=== PATIENT | female | born 1940 | race Caucasian/White ===

== ENCOUNTER 2017-06-07 12:00 | Emergency (ER) | payer MEDICARE, MEDICAID ==
[2017-06-07] MEDS ORDERED: IPRATROPIUM/ALBUTEROL 0.5-2.5 MG/3 ML AMPUL NEB ONE (12:11)
--- NOTE | 2017-06-07 12:14 | ER Document Report ---
ED Medical Screen (RME) - General Chief Complaint: COPD Exacerbation Stated Complaint: COUGH,SHORTNESS OF BREATH Time Seen by Provider: 06/07/17 12:11 Notes: RME DISCLOSURE I have seen this patient as part of a Rapid Medical Evaluation and, if applicable, placed any initially appropriate orders. The patient will be seen and fully evaluated, including a full history and physical exam, by a provider ( in Main ED or Fast Track) when a room becomes available. 77-year-old female here with complaints of shortness of breath dry cough wheezing chest tightness ongoing for the past few days. She just arrived here from [place] and when the symptoms started, she started taking 40 mg daily prednisone and is currently on day 3 of 10. She tried a neb treatment this morning with not much relief. She has been using her "trilogy" inhaler. TRAVEL OUTSIDE OF THE [place] IN LAST 30 DAYS: No
[2017-06-07] MEDS ORDERED: METHYLPREDNISOLONE INJ 125 MG/2 ML SDV IV ONE (12:43)
[2017-06-07] MEDS ORDERED: LORAZEPAM INJ 2 MG/1 ML VIAL IV ONE (12:44)
--- NOTE | 2017-06-07 12:47 | ER Document Report ---
ED Respiratory Problem - General Chief Complaint: COPD Exacerbation Stated Complaint: COUGH,SHORTNESS OF BREATH Time Seen by Provider: 06/07/17 12:11 Mode of Arrival: Ambulatory Information source: Patient Notes: HPI-77 years old female with a history of COPD, anxiety bipolar disorder presents today with difficulty in breathing and wheezing. [place], on [place] here started having these symptoms. She is on 40 mg of prednisolone. For the last 10 days. Denies any fever chills productive cough. Denies any chest pain. Denies any other constitutional symptoms. REVIEW OF SYSTEMS: CONSTITUTIONAL : Denies fever, chills, or sweats. Denies recent illness. EENT: Denies eye, ear, throat, or mouth pain or symptoms. Denies nasal or sinus congestion or discharge. Denies throat, tongue, or mouth swelling or difficulty swallowing. CARDIOVASCULAR: Denies chest pain. Denies palpitations or racing or irregular heart beat. Denies ankle edema. RESPIRATORY: As per history of complain GASTROINTESTINAL: Denies abdominal pain or distention. Denies nausea, vomiting , or diarrhea. Denies blood in vomitus, stools, or per rectum. Denies black, tarry stools. Denies constipation. GENITOURINARY: Denies difficulty urinating, painful urination, burning, frequency, blood in urine, or discharge. FEMALE GENITOURINARY: Denies vaginal bleeding, heavy or abnormal periods, irregular periods. Denies vaginal discharge or odor. MUSCULOSKELETAL: Denies back or neck pain or stiffness. Denies joint pain or swelling. SKIN: Denies rash, lesions or sores. HEMATOLOGIC : Denies easy bruising or bleeding. LYMPHATIC: Denies swollen, enlarged glands. NEUROLOGICAL: Denies confusion or altered mental status. Denies passing out or loss of consciousness. Denies dizziness or lightheadedness. Denies headache. Denies weakness or paralysis or loss of use of either side. Denies problems with gait or speech. Denies sensory loss, numbness, or tingling. Denies seizures. PSYCHIATRIC: Denies anxiety or stress. Denies depression, suicidal ideation, or homicidal ideation. ALL OTHER SYSTEMS REVIEWED AND NEGATIVE. PHYSICAL EXAMINATION: GENERAL: Well-appearing, well-nourished and in no acute distress. Appeared to be very anxious HEAD: Atraumatic, normocephalic. EYES: Pupils equal round and reactive to light, extraocular movements intact, conjunctiva are normal. ENT: Nares patent, oropharynx clear without exudates. Moist mucous membranes. NECK: Normal range of motion, supple without lymphadenopathy LUNGS: Bilaterally decreased breath sounds with scattered wheezes HEART: Regular rate and rhythm without murmurs ABDOMEN: Soft, nontender, nondistended abdomen. No guarding, no rebound. No masses appreciated. Female : deferred Musculoskeletal: Normal range of motion, no pitting or edema. No cyanosis. NEUROLOGICAL: Cranial nerves grossly intact. Normal speech, normal gait. Normal sensory, motor exams PSYCH: Normal mood, normal affect. SKIN: Warm, Dry, normal turgor, no rashes or lesions noted. Dictation was performed using [employer] voice recognition softwareHPI: TRAVEL OUTSIDE OF THE [place] IN LAST 30 DAYS: No - Related Data Allergies/Adverse Reactions: cephalexin [From Keflex] Allergy (Verified 06/07/17 12:20) morphine Allergy (Verified 06/07/17 12:20) sulfamethoxazole [From Bactrim] Allergy (Verified 06/07/17 12:20) trimethoprim [From Bactrim] Allergy (Verified 06/07/17 12:20) Past Medical History - Social History Smoking Status: Former Smoker Chew tobacco use (# tins/day): No Frequency of alcohol use: None Drug Abuse: None Family History: Reviewed & Not Pertinent Patient has suicidal ideation: No Patient has homicidal ideation: No - Past Medical History Cardiac Medical History: Reports: Hx Hypercholesterolemia, Hx Hypertension Pulmonary Medical History: Reports: Hx Asthma - allergy induced, Hx COPD Renal/ Medical History: Denies: Hx Peritoneal Dialysis GI Medical History: Reports: Hx Gastroesophageal Reflux Disease Psychiatric Medical History: Reports: Hx Bipolar Disorder Past Surgical History: Reports: Hx Appendectomy, Hx Hysterectomy Physical Exam - Vital signs Vitals: Temp Pulse Resp BP Pulse Ox 98.5 F 97 20 139/67 H 94 06/07/17 12:15 06/07/17 12:15 06/07/17 12:15 06/07/17 12:15 06/07/17 12:15 Course - Re-evaluation Re-evalutation: 06/07/17 15:28 She was given bronchodilator treatment as well as Ativan she was calm was breathing normally no more wheezing. Subsequently discharged home. - Vital Signs Vital signs: Temp Pulse Resp BP Pulse Ox 98.4 F 97 18 130/66 H 93 06/07/17 15:33 06/07/17 12:15 06/07/17 15:33 06/07/17 15:33 06/07/17 15:33 - Laboratory Result Diagrams: 06/07/17 12:50 06/07/17 12:50 Laboratory results interpreted by me: 06/07/17 06/07/17 12:50 12:50 Sodium 136.9 L NT-Pro-B Natriuret Pep 853 H - Diagnostic Test Radiology reviewed: Reports reviewed - Granulomatous disease no infiltration effusion or pneumothorax. Discharge - Discharge Clinical Impression: Acute anxiety, COPD exacerbation Condition: Fair Disposition: HOME, SELF-CARE Instructions: Chronic Obstructive Lung Disease ([facility]), Corticosteroid Inhaler ( [facility]) Prescriptions: Budesonide/Formoterol Fumarate [Symbicort 160-4.5 Mcg Inhaler] 10.2 gm IH BID # 1 hfa.aer.ad Lorazepam [Ativan 0.5 mg Tablet] 0.5 mg PO Q4 PRN #30 tab PRN Reason:
[2017-06-07 13:25] LABS: ABSOLUTE EOSINOPHILS # (AUTO) 0.1 10^3/uL (0.0-0.6); ABSOLUTE LYMPHOCYTES (AUTO) 1.1 10^3/uL (0.5-4.7); ABSOLUTE MONOCYTES (AUTO) 0.4 10^3/uL (0.1-1.4); ABSOLUTE NEUT (AUTO) 5.4 10^3/uL (1.7-8.2); BASOPHILS % (AUTO) 0.6 % (0-2); EOSINOPHILS % (AUTO) 0.9 % (0-6); HEMATOCRIT 40.8 % (36.0-47.0); HEMOGLOBIN 13.8 g/dL (12.0-15.5); LYMPHOCYTES % (AUTO) 15.9 % (13-45); MEAN CORPUSCULAR HEMOGLOBIN 31.2 pg (27.0-33.4); MEAN CORPUSCULAR HGB CONC 33.8 g/dL (32.0-36.0); MEAN CORPUSCULAR VOLUME 92 fl (80-97); MONOCYTES % (AUTO) 6.4 % (3-13); PLATELET COUNT 212 10^3/uL (150-450); RED BLOOD COUNT 4.42 10^6/uL (3.72-5.28); RED CELL DISTRIBUTION WIDTH 13.1 % (11.5-14.0); SEGMENTED NEUTROPHILS % (AUTO) 76.2 % (42-78); TOTAL CELLS COUNTED % (AUTO) 100 %
--- NOTE | 2017-06-07 13:28 | RADIOLOGY REPORT (SQ) ---
EXAM DESCRIPTION: CHEST PA/LAT COMPLETED DATE/TIME: 06/07/2017 1:17 pm REASON FOR STUDY: eval pneumonia COMPARISON: None. EXAM PARAMETERS: NUMBER OF VIEWS: two views TECHNIQUE: Digital Frontal and Lateral radiographic views of the chest acquired. RADIATION DOSE: NA LIMITATIONS: none FINDINGS: LUNGS AND PLEURA: No opacities, masses or pneumothorax. No pleural effusion. Calcified gr anulomata. MEDIASTINUM AND HILAR STRUCTURES: No masses or contour abnormalities. HEART AND VASCULAR STRUCTURES: Heart normal size. No evidence for failure. BONES: No acute findings. HARDWARE: None in the chest. OTHER: No other significant finding. IMPRESSION: Healed granulomatous disease. No acute findings. TECHNICAL DOCUMENTATION: JOB ID: [id number] [employer]- All Rights Reserved Reading location - IP/workstation name: [email or web address]
[2017-06-07 13:30] LABS: ALANINE AMINOTRANSFERASE 29 U/L (9-52); ALBUMIN 4.2 g/dL (3.5-5.0); ALKALINE PHOSPHATASE 69 U/L (38-126); ANION GAP 6 (5-19); ASPARTATE AMINO TRANSFERASE 32 U/L (14-36); BILIRUBIN,DIRECT 0.4 mg/dL (0.0-0.4); BILIRUBIN,TOTAL 0.8 mg/dL (0.2-1.3); BLOOD UREA NITROGEN 12 mg/dL (7-20); CALCIUM 10.2 mg/dL (8.4-10.2); CARBON DIOXIDE 29 mmol/L (22-30); CHLORIDE 102 mmol/L (98-107); GLUCOSE 108 mg/dL (75-110); POTASSIUM 4.4 mmol/L (3.6-5.0); SODIUM 136.9 mmol/L (137-145); TOTAL PROTEIN 7.2 g/dL (6.3-8.2)
[2017-06-07 15:36] VITALS: BP 130/66
== END 2017-06-07 15:35 | disposition home or self-care (01) ==
LOC: ER 12:00
DX: J44.1 Chronic obstructive pulmonary disease with (acute) exacerbation (principal); F41.9 Anxiety disorder, unspecified; I10 Essential (primary) hypertension; Z88.1 Allergy status to other antibiotic agents; Z88.5 Allergy status to narcotic agent; Z87.891 Personal history of nicotine dependence
CPT/HCPCS: 94640; 99285; 96374; 96375; 36415; 85025; 80053; 83880; 71046; J2930; J2060; A9270; J7620

== ENCOUNTER 2017-06-27 21:03 | Emergency (ER) | payer MEDICAID, MEDICARE ==
[2017-06-27] MEDS ORDERED: METHYLPREDNISOLONE INJ 125 MG/2 ML SDV IV ONE (22:49)
[2017-06-27] MEDS ORDERED: IPRATROPIUM/ALBUTEROL 0.5-2.5 MG/3 ML AMPUL NEB ONE (22:49)
--- NOTE | 2017-06-27 22:52 | ER Document Report ---
ED Medical Screen (RME) - General Chief Complaint: Breathing Difficulty Stated Complaint: SHORTNESS OF BREATH Time Seen by Provider: 06/27/17 22:49 Mode of Arrival: Wheelchair Information source: Patient Notes: Patient presents complaining of shortness of breath cough and is concerned about a flareup of her asthma and COPD. Patient denies any fever or chest pain. Patient does report recent travel from [place]. Patient is speaking in short 3 word sentences. History: Hypertension, bipolar, sleep apnea, mitral valve prolapse, asthma, COPD I have greeted and performed a rapid initial assessment of this patient. A comprehensive ED assessment and evaluation of the patient, analysis of test results and completion of the medical decision making process will be conducted by additional ED providers. TRAVEL OUTSIDE OF THE [place] IN LAST 30 DAYS: No - Related Data Allergies/Adverse Reactions: cephalexin [From Keflex] Allergy (Verified 06/07/17 12:20) morphine Allergy (Verified 06/07/17 12:20) sulfamethoxazole [From Bactrim] Allergy (Verified 06/07/17 12:20) trimethoprim [From Bactrim] Allergy (Verified 06/07/17 12:20) Past Medical History - Past Medical History Cardiac Medical History: Reports: Hx Hypercholesterolemia, Hx Hypertension Pulmonary Medical History: Reports: Hx Asthma - allergy induced, Hx COPD Renal/ Medical History: Denies: Hx Peritoneal Dialysis GI Medical History: Reports: Hx Gastroesophageal Reflux Disease Psychiatric Medical History: Reports: Hx Bipolar Disorder Past Surgical History: Reports: Hx Appendectomy, Hx Hysterectomy Physical Exam - Vital signs Vitals: Temp Pulse BP Pulse Ox 98.1 F 101 H 142/71 H 99 06/27/17 21:08 06/27/17 21:08 06/27/17 21:08 06/27/17 21:08 - Respiratory Respiratory status: Tachypnea Chest status: Nontender Breath sounds: Nonproductive cough, Wheezing - Tight air movement Course - Vital Signs Vital signs: Temp Pulse Resp BP Pulse Ox 98.1 F 101 H 142/71 H 99 06/27/17 21:08 06/27/17 21:08 06/27/17 21:08 06/27/17 21:08
[2017-06-27] MEDS ORDERED: ALBUTEROL SULFATE 0.083% NEB 2.5 MG/3 ML AMPUL NEB SCH (23:05)
--- NOTE | 2017-06-27 23:28 | ER Document Report ---
ED Respiratory Problem - General Chief Complaint: Breathing Difficulty Stated Complaint: SHORTNESS OF BREATH Time Seen by Provider: 06/27/17 22:49 Mode of Arrival: Wheelchair Information source: Patient Notes: Patient presents complaining of a two-week history of dyspnea that has worsened over the past 2 days. Patient denies any fever or chest pain. Patient states cough has been nonproductive. Patient does have a history of asthma and COPD and suspects the same today. Patient does admit that she recently traveled here from [place] 2 weeks ago. TRAVEL OUTSIDE OF THE [place] IN LAST 30 DAYS: No - HPI Patient complains to provider of: Cough, Short of breath. No: Chest pain Onset: Other - 2 weeks, worse over 2 days Duration: Worse/persistent Pain Level: Denies Context: Hx asthma, Hx COPD, Recent long distance trvl. denies: DVT, Hx CHF, Recent immobilization, Recent surgery Cough: Nonproductive Associated symptoms: Cough, Short of breath, Wheezing. denies: Chest pain/ discomfort, Congestion, Fever, Headache Similar symptoms previously: Yes Recently seen / treated by doctor: Yes - Related Data Allergies/Adverse Reactions: cephalexin [From Keflex] Allergy (Verified 06/07/17 12:20) morphine Allergy (Verified 06/07/17 12:20) sulfamethoxazole [From Bactrim] Allergy (Verified 06/07/17 12:20) trimethoprim [From Bactrim] Allergy (Verified 06/07/17 12:20) Past Medical History - General Information source: Patient - Social History Smoking Status: Former Smoker Frequency of alcohol use: None Drug Abuse: None Occupation: None Lives with: Family Family History: Reviewed & Not Pertinent - Past Medical History Cardiac Medical History: Reports: Hx Hypercholesterolemia, Hx Hypertension Pulmonary Medical History: Reports: Hx Asthma - allergy induced, Hx COPD Renal/ Medical History: Denies: Hx Peritoneal Dialysis GI Medical History: Reports: Hx Gastroesophageal Reflux Disease Psychiatric Medical History: Reports: Hx Bipolar Disorder Past Surgical History: Reports: Hx Appendectomy, Hx Hysterectomy Review of Systems - Review of Systems Constitutional: No symptoms reported. denies: Fever, Recent illness EENT: No symptoms reported Cardiovascular: denies: Chest pain, Syncope, Dizziness Respiratory: Cough, Short of breath, Wheezing Gastrointestinal: No symptoms reported. denies: Abdominal pain, Diarrhea, Nausea Genitourinary: No symptoms reported Female Genitourinary: No symptoms reported Musculoskeletal: No symptoms reported Skin: No symptoms reported Hematologic/Lymphatic: No symptoms reported Neurological/Psychological: No symptoms reported Physical Exam - Vital signs Vitals: Temp Pulse BP Pulse Ox 98.1 F 101 H 142/71 H 99 06/27/17 21:08 06/27/17 21:08 06/27/17 21:08 06/27/17 21:08 - General General appearance: Alert In distress: Mild - HEENT Head: Normocephalic Eyes: Normal Conjunctiva: Normal Nasal: Normal Mouth/Lips: Normal Neck: Normal, Supple. No: Lymphadenopathy - Respiratory Respiratory status: Labored, Tachypnea Chest status: Nontender Breath sounds: Nonproductive cough, Wheezing Chest palpation: Normal - Cardiovascular Rhythm: Tachycardia Heart sounds: S1 appreciated, S2 appreciated Murmur: No - Abdominal Inspection: Obese Distension: No distension Bowel sounds: Normal Tenderness: Nontender - Back Back: Normal - Extremities General upper extremity: Normal inspection, Normal strength General lower extremity: Normal inspection, Normal strength. No: Edema - Neurological Neuro grossly intact: Yes Cognition: Normal [place] Coma Scale Eye Opening: Spontaneous [place] Coma Scale Verbal: Oriented [place] Coma Scale Motor: Obeys Commands Praneeth Coma Scale Total: 15 - Psychological Associated symptoms: Normal affect, Normal mood - Skin Skin Temperature: Warm Skin Moisture: Dry Skin Color: Normal Course - Re-evaluation Re-evalutation: 06/28/17 01:20 Patient's effort of breathing is improved after nebulizer treatment. Patient still complains of dyspnea that is worse than her typical baseline. Patient continues to deny any chest pain, abdominal pain or back pain. Patient does continue tachycardic with oxygen saturation 94-95%. Patient states that for the past year she has had chronic dyspnea although not this severe. Patient states she is seen multiple pulmonologists and has been placed on different medications to help with her symptoms. Patient states that after having a pulmonary function test a year ago her asthma and COPD symptoms worsened. 06/28/[address] in the emergency department, patient maintain oxygen saturation 94-95% and heart rate increased to 114. Patient without any dyspnea. Consulted with Dr. Morales regarding patient presentation, reviewed diagnostic test results. Agrees with plan to treat for COPD exacerbation at this time. Discussed plan of care with patient and her daughter. Patient encouraged to follow-up with primary doctor as well as a inside horticultural specialty grower for further management of her COPD symptoms. Patient without any findings concerning for sepsis, PE, or pneumonia. Patient states that she has chronic dyspnea and reports that she is presently feeling much improved as compared to whenever she first arrived in the emergency department. Patient with good air movement bilaterally and only faint wheezing to the right lower lobe. - Vital Signs Vital signs: Temp Pulse Resp BP Pulse Ox 98 F 93 21 H 147/71 H 95 06/28/17 04:17 06/28/17 04:17 06/28/17 04:00 06/28/17 03:01 06/28/17 04:00 - Laboratory Result Diagrams: 06/28/17 00:10 06/28/17 00:10 Laboratory results interpreted by me: 06/28/17 06/28/17 00:10 00:10 Eosinophils % 6.3 H Total Protein 6.2 L Labs- Entire Visit 06/28/17 06/28/17 06/28/17 00:10 00:10 00:10 WBC 7.0 RBC 4.10 Hgb 12.6 Hct 36.9 MCV 90 MCH 30.6 MCHC 34.0 RDW 12.9 Plt Count 210 Seg Neutrophils % 52.6 Lymphocytes % 31.0 Monocytes % 9.1 Eosinophils % 6.3 H Basophils % 1.0 Absolute Neutrophils 3.7 Absolute Lymphocytes 2.2 Absolute Monocytes 0.6 Absolute Eosinophils 0.4 Absolute Basophils 0.1 D-Dimer VBG pH VBG pCO2 VBG HCO3 VBG Base Excess Sodium 140.9 Potassium 4.2 Chloride 106 Carbon Dioxide 26 Anion Gap 9 BUN 17 Creatinine 0.86 Est GFR ( Amer) > 60 Est GFR (Non-Af Amer) > 60 Glucose 89 Calcium 9.5 Magnesium 1.9 Total Bilirubin 0.4 Direct Bilirubin 0.3 Neonat Total Bilirubin Not Reportable Neonat Direct Bilirubin Not Reportable Neonat Indirect Bili Not Reportable AST 18 ALT 26 Alkaline Phosphatase 66 Creatine Kinase 65 CK-MB (CK-2) 1.50 Troponin I < 0.012 NT-Pro-B Natriuret Pep 303 Total Protein 6.2 L Albumin 3.6 06/28/17 06/28/17 00:10 03:36 WBC RBC Hgb Hct MCV MCH MCHC RDW Plt Count Seg Neutrophils % Lymphocytes % Monocytes % Eosinophils % Basophils % Absolute Neutrophils Absolute Lymphocytes Absolute Monocytes Absolute Eosinophils Absolute Basophils D-Dimer 0.48 VBG pH 7.40 VBG pCO2 39.4 VBG HCO3 23.9 VBG Base Excess -0.7 Sodium Potassium Chloride Carbon Dioxide Anion Gap BUN Creatinine Est GFR ( Amer) Est GFR (Non-Af Amer) Glucose Calcium Magnesium Total Bilirubin Direct Bilirubin Neonat Total Bilirubin Neonat Direct Bilirubin Neonat Indirect Bili AST ALT Alkaline Phosphatase Creatine Kinase CK-MB (CK-2) Troponin I NT-Pro-B Natriuret Pep Total Protein Albumin - Diagnostic Test Radiology reviewed: Reports reviewed Discharge - Discharge Clinical Impression: COPD exacerbation Condition: Stable Disposition: HOME, SELF-CARE Instructions: Chronic Obstructive Lung Disease ([facility]), Inhaled Bronchodilators ( [facility]), Steroid Medication Additional Instructions: Return immediately for any new or worsening symptoms Followup with your primary care provider, call tomorrow to make a followup appointment Follow-up with a inside horticultural specialty grower for further evaluation, call Thursday for an appointment Prescriptions: Albuterol Sulfate [Ventolin 0.083% Neb 2.5 mg/3 ml Ampul] 1 vial NEB Q4 PRN #25 vial PRN Reason: Prednisone [Deltasone 20 mg Tablet] 2 tab PO DAILY 5 Days tablet Referrals: MARIANGEL BROWN DO [Primary Care Provider] - Follow up tomorrow ZIYAD SPENCE MD [ACTIVE STAFF] - Follow up as needed
--- NOTE | 2017-06-28 00:02 | RADIOLOGY REPORT (SQ) ---
EXAM DESCRIPTION: CHEST 2 VIEWS CLINICAL HISTORY: 77 years Female, sob COMPARISON: June 07, 2017, report only. NUMBER OF VIEWS/TECHNIQUE: 2, PA and Lateral LIMITATIONS: None. FINDINGS: Emphysematous hyperinflation. Calcified granulomata of the right lower hemithorax. Parenchyma. Normal cardiac silhouette. Atherosclerosis. Mild scoliotic curvature. IMPRESSION: No acute cardiopulmonary findings.
[2017-06-28 00:25] LABS: ABSOLUTE BASOPHILS # (AUTO) 0.1 10^3/uL (0.0-0.2); ABSOLUTE EOSINOPHILS # (AUTO) 0.4 10^3/uL (0.0-0.6); ABSOLUTE LYMPHOCYTES (AUTO) 2.2 10^3/uL (0.5-4.7); ABSOLUTE MONOCYTES (AUTO) 0.6 10^3/uL (0.1-1.4); ABSOLUTE NEUT (AUTO) 3.7 10^3/uL (1.7-8.2); EOSINOPHILS % (AUTO) 6.3 % (0-6); HEMATOCRIT 36.9 % (36.0-47.0); HEMOGLOBIN 12.6 g/dL (12.0-15.5); MEAN CORPUSCULAR HEMOGLOBIN 30.6 pg (27.0-33.4); MEAN CORPUSCULAR VOLUME 90 fl (80-97); MONOCYTES % (AUTO) 9.1 % (3-13); PLATELET COUNT 210 10^3/uL (150-450); RED CELL DISTRIBUTION WIDTH 12.9 % (11.5-14.0); SEGMENTED NEUTROPHILS % (AUTO) 52.6 % (42-78); TOTAL CELLS COUNTED % (AUTO) 100 %
[2017-06-28 00:43] LABS: ALANINE AMINOTRANSFERASE 26 U/L (9-52); ALBUMIN 3.6 g/dL (3.5-5.0); ALKALINE PHOSPHATASE 66 U/L (38-126); ANION GAP 9 (5-19); ASPARTATE AMINO TRANSFERASE 18 U/L (14-36); BILIRUBIN,DIRECT 0.3 mg/dL (0.0-0.4); BILIRUBIN,TOTAL 0.4 mg/dL (0.2-1.3); BLOOD UREA NITROGEN 17 mg/dL (7-20); CALCIUM 9.5 mg/dL (8.4-10.2); CARBON DIOXIDE 26 mmol/L (22-30); CHLORIDE 106 mmol/L (98-107); CREATINE KINASE 65 U/L (30-135); GLUCOSE 89 mg/dL (75-110); POTASSIUM 4.2 mmol/L (3.6-5.0); SODIUM 140.9 mmol/L (137-145); TOTAL PROTEIN 6.2 g/dL (6.3-8.2)
[2017-06-28 00:57] LABS: NT PRO BNP 303 pg/mL (<450)
[2017-06-28 00:58] LABS: TROPONIN I < 0.012 ng/mL
[2017-06-28] MEDS ORDERED: ALBUTEROL SULFATE 0.083% NEB 2.5 MG/3 ML AMPUL NEB ONE (01:20)
--- NOTE | 2017-06-28 02:24 | RADIOLOGY REPORT (SQ) ---
EXAM DESCRIPTION: CTA CHEST CLINICAL HISTORY: 77 years Female, dyspnea, tachycardia COMPARISON: CR, same day. TECHNIQUE: IV contrast. Multiplanar reformat. This exam was performed according to our departmental dose-optimization program, which includes automated exposure control, adjustment of the mA and/or kV according to patient size and/or use of iterative reconstruction technique. FINDINGS: No pulmonary embolus. No right ventricular strain. Suboptimal pulmonary arterial enhancement measures up to 184HU. Old calcified granulomata in the right lower chest. Calcified right hilar lymphadenopathy. Mild mediastinal lymphadenopathy. Atherosclerosis. Small coronary arterial calcification. Small splenic calcified granulomata. Moderate emphysematous hyperinflation. Mild L1 compression deformity. Inferior neck, axillae, lungs, airway, heart, vasculature, upper abdomen, and musculoskeleton appear otherwise unremarkable. Impression: No acute cardiopulmonary findings. No pulmonary embolus.
[2017-06-28 03:46] LABS: VENOUS BLOOD BASE EXCESS -0.7 mmol/L; VENOUS BLOOD HCO3 23.9 mmol/L (20-32); VENOUS BLOOD PCO2 39.4 mmHg (35-63); VENOUS BLOOD PH 7.4 (7.30-7.42)
[2017-06-28 04:17] VITALS: BP 147/71
--- NOTE | 2017-06-28 08:23 | EKG REPORT ---
SEVERITY:- ABNORMAL ECG - SINUS RHYTHM MULTIPLE VENTRICULAR PREMATURE COMPLEXES : Confirmed by: Ranjan Estrella MD 28-Jun-2017 08:22:10
== END 2017-06-28 04:17 | disposition home or self-care (01) ==
LOC: ER 21:03
DX: J44.1 Chronic obstructive pulmonary disease with (acute) exacerbation (principal); R00.0 Tachycardia, unspecified; E66.9 Obesity, unspecified; Z68.33 Body mass index [BMI] 33.0-33.9, adult
CPT/HCPCS: 93005; 94640 ×2; 99285; 96374; 36415; 82553; 82550; 83735; 85025; 80053; 84484; 85379; 82803; 83880; 71046; 71275; 93010; J2930; A9270 ×2; J7620

== ENCOUNTER 2017-07-09 21:35 | Emergency (ER) | payer MEDICARE, MEDICAID ==
[2017-07-09] MEDS ORDERED: METHYLPREDNISOLONE INJ 125 MG/2 ML SDV IV ONE (22:43)
--- NOTE | 2017-07-09 22:49 | ER Document Report ---
ED Respiratory Problem - General Chief Complaint: Shortness Of Breath Stated Complaint: SHORTNESS OF BREATH Time Seen by Provider: 07/09/17 22:33 Notes: Patient is a 77-year-old female, past medical history COPD, anxiety, bipolar, presents with 6 days of shortness of breath. She was seen here twice earlier this month for similar symptoms, which improved with prednisone. She tried her albuterol inhaler with relief of her wheezing, but she still feels short of breath. She recently moved here from [place] and her first appointment with the primary care physician is in 1 week. She does not have her anxiety medications and has been using alcohol to help with her anxiety. She denies chest pain, leg swelling, hemoptysis, history of cancer, nausea, vomiting, back pain, cough or rash. TRAVEL OUTSIDE OF THE [place] IN LAST 30 DAYS: No - Related Data Allergies/Adverse Reactions: cephalexin [From Keflex] Allergy (Verified 06/07/17 12:20) morphine Allergy (Verified 06/07/17 12:20) sulfamethoxazole [From Bactrim] Allergy (Verified 06/07/17 12:20) trimethoprim [From Bactrim] Allergy (Verified 06/07/17 12:20) Past Medical History - General Information source: Patient - Social History Smoking Status: Unknown if Ever Smoked Family History: Reviewed & Not Pertinent - Past Medical History Cardiac Medical History: Reports: Hx Hypercholesterolemia, Hx Hypertension Pulmonary Medical History: Reports: Hx Asthma - allergy induced, Hx COPD Renal/ Medical History: Denies: Hx Peritoneal Dialysis GI Medical History: Reports: Hx Gastroesophageal Reflux Disease Psychiatric Medical History: Reports: Hx Bipolar Disorder Past Surgical History: Reports: Hx Appendectomy, Hx Hysterectomy Review of Systems - Review of Systems Notes: REVIEW OF SYSTEMS: CONSTITUTIONAL: -fevers, -chills EENT: -eye pain, -difficulty swallowing, -nasal congestion CARDIOVASCULAR: -chest pain, -syncope. RESPIRATORY: -cough, +SOB GASTROINTESTINAL: -abdominal pain, -nausea, -vomiting, -diarrhea GENITOURINARY: -dysuria, -hematuria MUSCULOSKELETAL: -back pain, -neck pain SKIN: -rash or skin lesions. HEMATOLOGIC: -easy bruising or bleeding. LYMPHATIC: -swollen, enlarged glands. NEUROLOGICAL: -altered mental status or loss of consciousness, -headache, - neurologic symptoms PSYCHIATRIC: +anxiety, -depression. ALL OTHER SYSTEMS REVIEWED AND NEGATIVE. Physical Exam - Vital signs Vitals: Temp Pulse Resp BP Pulse Ox 97.1 F 130 H 24 H 126/70 H 98 07/09/17 21:45 07/09/17 21:45 07/09/17 21:45 07/09/17 21:45 07/09/17 21:45 - Notes Notes: PHYSICAL EXAMINATION: GENERAL: Well-appearing, well-nourished and in no acute distress. HEAD: Atraumatic, normocephalic. EYES: Pupils equal round and reactive to light, extraocular movements intact, sclera anicteric, conjunctiva are normal. ENT: nares patent, oropharynx clear without exudates. Moist mucous membranes. NECK: Normal range of motion, supple without lymphadenopathy, enlarged thyroid LUNGS: Mild tachypnea. Speaking in full sentences. No wheezes rales or rhonchi. HEART: Tachycardia, regular rhythm. ABDOMEN: Soft, nontender, normoactive bowel sounds. No guarding, no rebound. No masses appreciated. EXTREMITIES: Normal range of motion, no pitting or edema. No cyanosis. NEUROLOGICAL: Cranial nerves grossly intact. Normal speech, normal gait. Normal sensory and motor exams. PSYCH: Mildly anxious. SKIN: Warm, Dry, normal turgor, no rashes or lesions noted. Course - Re-evaluation Re-evalutation: Patient appears well and is in no respiratory distress. Lungs are clear. Using Well's score, she is low to moderate risk for PE. D-dimer is negative, so this rules out a PE. Chest x-ray does not show any pulmonary vascular congestion or pneumonia. Her blood gas is normal and rest of blood work is also normal, other than evidence of hyperthyroidism. No evidence of thyroid storm. This most likely explains her persistent mild tachycardia in the low 100s -110's. Will start her on a low-dose propranolol until her first primary care appointment in 1 week. She is also requesting a prednisone taper, as this has helped her dyspnea in the past. Patient ambulated without increased work of breathing or hypoxia. Will discharge patient home with primary care follow-up and strict return precautions. - Vital Signs Vital signs: Temp Pulse Resp BP Pulse Ox 97.1 F 130 H 16 130/50 H 99 07/09/17 21:45 07/09/17 21:45 07/10/17 00:01 07/10/17 00:01 07/10/17 00:01 - Laboratory Result Diagrams: 07/09/17 22:40 07/09/17 22:40 Laboratory results interpreted by me: 07/09/17 07/09/17 22:40 22:40 BUN 27 H Est GFR (Non-Af Amer) 51 L Glucose 121 H TSH < 0.01 L Free T3 pg/mL 12.20 H - Diagnostic Test Radiology reviewed: Image reviewed, Reports reviewed Radiology results interpreted by me: CXR: NAD - EKG Interpretation by Me EKG shows normal: Sinus rhythm, [place], Intervals, QRS Complexes, ST-T Waves Rate: Tachycardia Discharge - Discharge Clinical Impression: Hyperthyroidism, COPD with exacerbation, Anxiety Condition: Stable Disposition: HOME, SELF-CARE Additional Instructions: Hyperthyroidism The thyroid gland is found in the front of the neck. It produces thyroid hormone. Thyroid hormone regulates the metabolism. Hyperthyroidism means the gland is producing too much thyroid hormone. This "turns up the thermostat" too high, causing weight loss, nervousness, rapid heartbeat, and weakness. Unless it's caused by taking thyroid pills, hyperthyroidism must be investigated. The problem may be in the pituitary gland or the thyroid gland itself. Medication can control the symptoms while long-term treatment is begun. The exact treatment depends on the cause of your hyperthyroidism and on its severity. Contact the doctor or return if you change for the worse -- for example, palpitations, severe nervousness, chest pain, shortness of breath, worsening weakness or lightheadedness. BRONCHITIS: You have acute bronchitis. This disease is an infection or inflammation of the air passageways in your lungs. Symptoms usually include cough, low grade fever, shortness of breath, and wheezing. The cough usually persists for a couple of weeks. Most cases of bronchitis get better without antibiotics. We prescribe antibiotics when we believe bacteria are damaging your airways, or if there's high risk the bronchitis will worsen into pneumonia. Increase your fluid intake. A cool mist humidifier may make your lungs more comfortable. An expectorant (cough medicine that loosens phlegm) can help. If you smoke, STOP!!! Recovery from bronchitis can be somewhat slow, but you should see improvement within a day or two. Repeated episodes of bronchitis may result in lung damage -- for example, chronic bronchitis, recurrent pneumonias, or emphysema. Call the doctor if you develop increasing fever, shortness of breath, chest pain, bloody sputum, or otherwise worsen. If you have not improved at all after several days, contact the physician. INHALED BRONCHODILATORS: You have received a treatment of and/or prescription for an inhaled bronchodilator -- a medication which stimulates the airways in the lung to dilate. This improves the flow of air in asthma, bronchitis, and emphysema. These medicines have some similarity to adrenaline, and can cause similar side effects: shakiness, racing heart, and a sense of nervousness. These side effects decrease with time. Contact your doctor if these side effects are severe. Do not over-use the medicine. Too-frequent use of the inhaler may make it ineffective. Call your doctor if the inhaler is not controlling your symptoms at the prescribed doses. STEROID MEDICATION: You have been given an injection of or oral medicine of the cortisone/ steroid class. This medication is used to control inflammation or allergy. Jarred t is usually only given for a short period of time, until the acute process subsides. There are usually no side effects from short-term use of cortisone-like medications. Some persons feel an increased sense of well-being and are not sleepy at bedtime. Long-term use of cortisone medications is best avoided, unless required for a severe condition. If your condition does not remit, or relapses after the course of corticosteroid medication, you should consult your physician. USE OF ACETAMINOPHEN (Tylenol): Acetaminophen may be taken for pain relief or fever control. It's much safer than aspirin, offering a wider range of "safe" dosages. It is safe during . Some brand names are Tylenol, Panadol, Datril, Anacin 3, Tempra, and Liquiprin. Acetaminophen can be repeated every four hours. The following are maximum recommended dosages: >89 pounds or adults 650 mg to 900 mg Acetaminophen can be repeated every four hours. Maximum dose not to exceed 4000 mg a day. SMOKING: If you smoke, you should stop smoking. The tar and chemicals in cigarette smoke are harmful. Smoking has been shown to cause: emphysema chronic bronchitis lung cancer mouth and throat cancer stomach and pancreas cancer premature aging defects In addition, smoking increases ear and lung infections in children of smokers. FOLLOW-UP CARE: If you have been referred to a physician for follow-up care, call the physician s office for an appointment as you were instructed or within the next two days. If you experience worsening or a significant change in your symptoms, notify the physician immediately or return to the Emergency Department at any time for re-evaluation. Anxiety The physician feels that some of your health problems are being caused by anxiety. Anxiety affects your health in many ways. Anxiety alone can cause palpitations, sweats, chest pains, abdominal pains, shortness of breath, and headaches. It contributes to ulcer disease, high blood pressure, irritable bowel syndrome, and has been shown to cause flare-ups of many other diseases. Anxiety is not a simple disorder to treat. If the anxiety is due to recent life stresses, you may simply need time to "work through" the changes. If the anxiety is due to an underlying unhappiness with yourself or due to psychiatric disturbance, professional help will be needed. Your physician can refer you for further help if needed. Anti-anxiety medication is occasionally given if the stress is acute or if you are having trouble sleeping. Chronic or frequent use of these medications is not a good idea because the body becomes reliant on it, preventing you from dealing with life's normal stresses. Prescriptions: Lorazepam [Ativan 0.5 mg Tablet] 0.5 mg PO Q4 PRN #14 tab PRN Reason: Prednisone [Deltasone 10 mg Tablet] 10 mg PO ASDIR PRN #21 tablet PRN Reason: Propranolol HCl [Inderal 10 mg Tablet] 10 mg PO Q6 7 Days tab Forms: Elevated Blood Pressure Referrals: MARIANGEL BROWN DO [Primary Care Provider] - Follow up as needed
[2017-07-09 23:00] LABS: ABSOLUTE BASOPHILS # (AUTO) 0.1 10^3/uL (0.0-0.2); ABSOLUTE EOSINOPHILS # (AUTO) 0.3 10^3/uL (0.0-0.6); ABSOLUTE LYMPHOCYTES (AUTO) 1.8 10^3/uL (0.5-4.7); ABSOLUTE MONOCYTES (AUTO) 0.8 10^3/uL (0.1-1.4); ABSOLUTE NEUT (AUTO) 4.1 10^3/uL (1.7-8.2); BASOPHILS % (AUTO) 1.4 % (0-2); EOSINOPHILS % (AUTO) 3.6 % (0-6); HEMATOCRIT 38.6 % (36.0-47.0); MEAN CORPUSCULAR HEMOGLOBIN 30.6 pg (27.0-33.4); MEAN CORPUSCULAR HGB CONC 33.8 g/dL (32.0-36.0); MEAN CORPUSCULAR VOLUME 91 fl (80-97); MONOCYTES % (AUTO) 11.4 % (3-13); PLATELET COUNT 202 10^3/uL (150-450); RED BLOOD COUNT 4.25 10^6/uL (3.72-5.28); RED CELL DISTRIBUTION WIDTH 13.1 % (11.5-14.0); SEGMENTED NEUTROPHILS % (AUTO) 58.6 % (42-78); TOTAL CELLS COUNTED % (AUTO) 100 %; WHITE BLOOD COUNT 7.1 10^3/uL (4.0-10.5)
[2017-07-09 23:03] LABS: VENOUS BLOOD BASE EXCESS 0.5 mmol/L; VENOUS BLOOD HCO3 25.7 mmol/L (20-32); VENOUS BLOOD PCO2 43.3 mmHg (35-63); VENOUS BLOOD PH 7.39 (7.30-7.42)
[2017-07-09 23:20] LABS: ALANINE AMINOTRANSFERASE 21 U/L (9-52); ALBUMIN 3.8 g/dL (3.5-5.0); ALKALINE PHOSPHATASE 61 U/L (38-126); ANION GAP 8 (5-19); ASPARTATE AMINO TRANSFERASE 19 U/L (14-36); BILIRUBIN,DIRECT 0.2 mg/dL (0.0-0.4); BILIRUBIN,TOTAL 0.2 mg/dL (0.2-1.3); BLOOD UREA NITROGEN 27 mg/dL (7-20); CARBON DIOXIDE 27 mmol/L (22-30); CHLORIDE 106 mmol/L (98-107); CREATINE KINASE 46 U/L (30-135); GLUCOSE 121 mg/dL (75-110); POTASSIUM 4.3 mmol/L (3.6-5.0); SODIUM 141.4 mmol/L (137-145); TOTAL PROTEIN 6.8 g/dL (6.3-8.2)
[2017-07-09] MEDS ORDERED: NORMAL SALINE 1000 ML 1,000 ML IV ONE (23:28)
[2017-07-09] MEDS ORDERED: LORAZEPAM 1 MG TABLET PO ONE (23:29)
--- NOTE | 2017-07-09 23:29 | RADIOLOGY REPORT (SQ) ---
EXAM DESCRIPTION: CHEST SINGLE VIEW CLINICAL HISTORY: 77 years Female, SOB COMPARISON: June 27, 2017. NUMBER OF VIEWS/TECHNIQUE: 1/AP FINDINGS: Adequate lung volume, stable calcified granuloma in the right lower lung field and right infrahilar, normal cardiac silhouette, and intact bony thorax. IMPRESSION: No acute cardiopulmonary findings.
[2017-07-10] MEDS ORDERED: METOPROLOL TARTRATE 50 MG TABLET PO ONE (00:01)
[2017-07-10 00:06] LABS: FREE T4 (FREE THYROXINE) 1.79 ng/dL (0.78-2.19)
[2017-07-10 00:20] LABS: THYROID STIMULATING HORMONE < 0.01 uIU/mL (0.47-4.68)
[2017-07-10 07:14] VITALS: BP 115/79
--- NOTE | 2017-07-10 18:28 | EKG REPORT ---
SEVERITY:- OTHERWISE NORMAL ECG - SINUS TACHYCARDIA VENTRICULAR PREMATURE COMPLEX : Confirmed by: Ranjan Estrella MD 10-Jul-2017 18:27:29
== END 2017-07-10 02:00 | disposition home or self-care (01) ==
LOC: ER 21:35
DX: E05.90 Thyrotoxicosis, unspecified without thyrotoxic crisis or storm (principal); J44.1 Chronic obstructive pulmonary disease with (acute) exacerbation; F41.9 Anxiety disorder, unspecified; R06.02 Shortness of breath; I10 Essential (primary) hypertension
CPT/HCPCS: 93005; 99285; 96361; 96374; 36415; 84439; 82550; 84443; 85025; 80053; 84484; 84481; 85379; 82803; 83605; 71045; 93010; J2930; A9270 ×2; J7030

== ENCOUNTER 2017-07-18 23:12 | Emergency (ER) | payer MEDICARE, MEDICAID ==
--- NOTE | 2017-07-19 00:24 | ER Document Report ---
ED General - General Chief Complaint: Breathing Difficulty Stated Complaint: SHORT OF BREATH Time Seen by Provider: 07/19/17 00:22 Notes: Patient is a pleasant 77-year-old female presents with complaint of difficulty breathing. She has having difficulty breathing now for almost a year. She moved here from [place]. She has been to the ER now 5 times in the last couple weeks. She has history of COPD. She quit smoking year ago. She did see a dyed raw stock blower feeder in [place]. They cannot figure out why she continues have difficulty breathing. Last time she was seen here she was told that her thyroid function is off. They seem this is why her tachycardia was ongoing. I placed her on propranolol and stopped her metoprolol. They had a follow-up with Dr. Feliz who placed her methimazole and recheck labs this morning. I was able to find her labs in her T3 and T4 of normalized. TSH is still a little bit off. Patient denies any fevers. She denies any vomiting. She was placed on budesonide by Dr. Feliz. She also has been on oral steroids but says it did not seem to be helping. Tonight her breathing got worse and therefore she came to the ER. She did have a CTa of her chest recently. This was negative. TRAVEL OUTSIDE OF THE [place] IN LAST 30 DAYS: No - Related Data Allergies/Adverse Reactions: cephalexin [From Keflex] Allergy (Verified 06/07/17 12:20) morphine Allergy (Verified 06/07/17 12:20) sulfamethoxazole [From Bactrim] Allergy (Verified 06/07/17 12:20) trimethoprim [From Bactrim] Allergy (Verified 06/07/17 12:20) Past Medical History - Social History Smoking Status: Former Smoker Frequency of alcohol use: None Drug Abuse: None Family History: Reviewed & Not Pertinent - Past Medical History Cardiac Medical History: Reports: Hx Hypercholesterolemia, Hx Hypertension Pulmonary Medical History: Reports: Hx Asthma - allergy induced, Hx COPD Renal/ Medical History: Denies: Hx Peritoneal Dialysis GI Medical History: Reports: Hx Gastroesophageal Reflux Disease Psychiatric Medical History: Reports: Hx Bipolar Disorder Past Surgical History: Reports: Hx Appendectomy, Hx Hysterectomy Review of Systems - Review of Systems Notes: My Normal Review Basic REVIEW OF SYSTEMS: CONSTITUTIONAL : Denies fever, chills, or sweats. Denies recent illness. EENT: Denies eye, ear, throat, or mouth pain or symptoms. Denies nasal or sinus congestion. CARDIOVASCULAR: Denies chest pain. RESPIRATORY: Difficulty breathing GASTROINTESTINAL: Denies abdominal pain. Denies nausea, vomiting, or diarrhea. Denies constipation. Last BM: MUSCULOSKELETAL: Denies neck or back pain or joint pain or swelling. SKIN: Denies rash or skin lesions. NEUROLOGICAL: Denies altered mental status or loss of consciousness. Denies headache. Denies weakness or paralysis or loss of use of either side. Denies problems with gait or speech. Denies sensory or motor loss. ALL OTHER SYSTEMS REVIEWED AND NEGATIVE. Physical Exam - Notes Notes: General Appearance: Well nourished, alert, cooperative, mild to moderate acute distress, no obvious discomfort. Vitals: reviewed, See vital signs table. Head: no swelling or tenderness to the head Eyes: PERRL, EOMI, Conjuctiva clear Mouth: No decreasd moisture Lungs: Patient has diminished air exchange. Very mild wheezing. No rales. Some accessory muscle use. Heart: Tachycardic rate, Regular rythm, No murmur, no rub Abdomen: Normal BS, soft, No rigidity, No abdominal tenderness, No guarding, no rebound, no abdominal masses, no organomegaly Extremities: strength 5/5 in all extremities, good pulses in all extremities, no swelling or tenderness in the extremities, no edema. Skin: warm, dry, appropriate color, no rash Neuro: speech clear, oriented x 3, normal affect, responds appropriately to questions. Course - Re-evaluation Re-evalutation: 07/19/17 03:42 After the magnesium patient's breathing improved greatly. She had good air movement afterwards. Breathing treatments also appeared to help but she felt that the IV magnesium was what really helped her the most. She said this is the best she has felt a long time. Being that she continues have recurrent difficulty breathing this is been ongoing and this is her fifth visit and a few weeks I did have a hospitalist can evaluate her. very kindly did evaluate the patient. He does recommend that the patient does follow-up with pulmonology and possibly eventually go to a tertiary care center being that this is been a recurrent problem. I agree with his assessment. Patient does have an upcoming appointment with her local dyed raw stock blower feeder on the . I informed her that if after that they feel that she needs further referrals and they would refer her to a tertiary care center her academic setting such as [facility] or [facility]. I will hold the patient's budesonide and place her on Advair as this has a long acting beta agonist and therefore may help prevent her from going into bronchospasm. Also will have her stop the propranolol as this is a nonselective beta-quita and have her start back on her metoprolol. I informed her to return to ER immediately if she has recurrent difficulty breathing, fevers, or feels unwell. Patient agrees with plan will be discharged home. Dictation of this chart was performed using voice recognition software; therefore, there may be some unintended grammatical errors. - Laboratory Result Diagrams: 07/19/17 01:45 07/19/17 01:45 Laboratory results interpreted by me: 07/19/17 01:45 WBC 10.7 H Eosinophils % 8.5 H Absolute Eosinophils 0.9 H - EKG Interpretation by Me Additional EKG results interpreted by me: 07/19/17 00:24 EKG is reviewed and interpreted by me. EKG shows sinus tachycardia with rate of [address] segment elevation or depression. No ischemic T-wave inversions. WA interval, QRS duration, QTc intervals are within normal range. Old EKG for comparison is from July 09, 2017. Discharge - Discharge Clinical Impression: Bronchospasm Condition: Good Disposition: HOME, SELF-CARE Additional Instructions: Please stop using the budesonide and start using the Advair. You only use the Advair as prescribed. This is not a rescue inhaler so do not use it if you are having active wheezing or difficulty breathing. Please use your duoneb treatments or albuterol inhaler at home for active wheezing. please follow up with Dr. Burch's office on the as scheduled. Please return to the ER immediately if oyu have worsening difficulty breathing, fevers, or have further concerns.Please stop the Inderal and go back to taking your Metoprolol. Prescriptions: Fluticasone/Salmeterol [Advair 250-50 Diskus 28 dose] 1 inh IH DAILY #1 inhaler Referrals: MARIANGEL FELIZ DO [Primary Care Provider] - 07/20/17
[2017-07-19] MEDS ORDERED: IPRATROPIUM/ALBUTEROL 0.5-2.5 MG/3 ML AMPUL NEB ONE ×2 (00:46→02:20)
[2017-07-19] MEDS: MAGNESIUM SULFATE/D5W 1 GM/100 ML RTUPB IV SCH ×2 (01:33→01:52)
[2017-07-19 01:58] LABS: VENOUS BLOOD HCO3 25.4 mmol/L (20-32); VENOUS BLOOD PCO2 39.7 mmHg (35-63); VENOUS BLOOD PH 7.42 (7.30-7.42)
[2017-07-19 02:00] LABS: ABSOLUTE BASOPHILS # (AUTO) 0.1 10^3/uL (0.0-0.2); ABSOLUTE EOSINOPHILS # (AUTO) 0.9 10^3/uL (0.0-0.6); ABSOLUTE LYMPHOCYTES (AUTO) 2.7 10^3/uL (0.5-4.7); ABSOLUTE MONOCYTES (AUTO) 0.7 10^3/uL (0.1-1.4); ABSOLUTE NEUT (AUTO) 6.2 10^3/uL (1.7-8.2); BASOPHILS % (AUTO) 1.4 % (0-2); EOSINOPHILS % (AUTO) 8.5 % (0-6); HEMATOCRIT 45.8 % (36.0-47.0); HEMOGLOBIN 15.5 g/dL (12.0-15.5); LYMPHOCYTES % (AUTO) 25.3 % (13-45); MEAN CORPUSCULAR HEMOGLOBIN 30.3 pg (27.0-33.4); MEAN CORPUSCULAR HGB CONC 33.8 g/dL (32.0-36.0); MEAN CORPUSCULAR VOLUME 90 fl (80-97); MONOCYTES % (AUTO) 6.7 % (3-13); PLATELET COUNT 238 10^3/uL (150-450); RED BLOOD COUNT 5.12 10^6/uL (3.72-5.28); RED CELL DISTRIBUTION WIDTH 12.5 % (11.5-14.0); SEGMENTED NEUTROPHILS % (AUTO) 58.1 % (42-78); TOTAL CELLS COUNTED % (AUTO) 100 %; WHITE BLOOD COUNT 10.7 10^3/uL (4.0-10.5)
[2017-07-19 02:17] LABS: ALANINE AMINOTRANSFERASE 24 U/L (9-52); ALBUMIN 3.9 g/dL (3.5-5.0); ALKALINE PHOSPHATASE 76 U/L (38-126); ANION GAP 13 (5-19); ASPARTATE AMINO TRANSFERASE 17 U/L (14-36); BILIRUBIN,DIRECT 0.3 mg/dL (0.0-0.4); BILIRUBIN,TOTAL 0.4 mg/dL (0.2-1.3); BLOOD UREA NITROGEN 18 mg/dL (7-20); CARBON DIOXIDE 29 mmol/L (22-30); CHLORIDE 101 mmol/L (98-107); GLUCOSE 100 mg/dL (75-110); POTASSIUM 4.5 mmol/L (3.6-5.0); SODIUM 142.6 mmol/L (137-145); TOTAL PROTEIN 6.6 g/dL (6.3-8.2)
[2017-07-19 04:13] VITALS: BP 143/69
--- NOTE | 2017-07-19 04:39 | RADIOLOGY REPORT (SQ) ---
EXAM DESCRIPTION: CHEST SINGLE VIEW CLINICAL HISTORY: dyspnea COMPARISON: 07/09/2017 FINDINGS: Single frontal view of the chest. Atherosclerotic calcification and tortuosity of thoracic aorta. Heart is not enlarged. No consolidation, pneumothorax, or pleural effusion. No displaced rib fractures identified. Upper abdominal soft tissues are unremarkable. Right lung calcified granuloma. IMPRESSION: 1. No acute pulmonary process identified.
--- NOTE | 2017-07-19 10:32 | EKG REPORT ---
SEVERITY:- BORDERLINE ECG - SINUS TACHYCARDIA BORDERLINE T WAVE ABNORMALITIES : Confirmed by: Rufina Mendez 19-Jul-2017 10:30:28
== END 2017-07-19 04:13 | disposition home or self-care (01) ==
LOC: ER 23:12
DX: J98.01 Acute bronchospasm (principal); R06.02 Shortness of breath; J44.9 Chronic obstructive pulmonary disease, unspecified; R94.6 Abnormal results of thyroid function studies; I10 Essential (primary) hypertension; Z87.891 Personal history of nicotine dependence; Z79.899 Other long term (current) drug therapy; Z79.52 Long term (current) use of systemic steroids
CPT/HCPCS: 93005; 96376; 94640; 99285; 96374; 36415; 85025; 80053; 84484; 82803; 71045; 93010; J3475; A9270; J7620

== ENCOUNTER → 2017-07-18 | Outpatient (CLI) | payer MEDICARE, MEDICAID ==
[2017-07-18 12:17] LABS: ABSOLUTE BASOPHILS # (AUTO) 0.1 10^3/uL (0.0-0.2); ABSOLUTE EOSINOPHILS # (AUTO) 0.7 10^3/uL (0.0-0.6); ABSOLUTE LYMPHOCYTES (AUTO) 1.9 10^3/uL (0.5-4.7); ABSOLUTE MONOCYTES (AUTO) 0.5 10^3/uL (0.1-1.4); BASOPHILS % (AUTO) 1.1 % (0-2); EOSINOPHILS % (AUTO) 9.6 % (0-6); HEMATOCRIT 44.2 % (36.0-47.0); HEMOGLOBIN 15.1 g/dL (12.0-15.5); LYMPHOCYTES % (AUTO) 25.9 % (13-45); MEAN CORPUSCULAR HEMOGLOBIN 30.5 pg (27.0-33.4); MEAN CORPUSCULAR HGB CONC 34.1 g/dL (32.0-36.0); MEAN CORPUSCULAR VOLUME 90 fl (80-97); MONOCYTES % (AUTO) 7.2 % (3-13); PLATELET COUNT 219 10^3/uL (150-450); RED BLOOD COUNT 4.94 10^6/uL (3.72-5.28); RED CELL DISTRIBUTION WIDTH 12.8 % (11.5-14.0); SEGMENTED NEUTROPHILS % (AUTO) 56.2 % (42-78); TOTAL CELLS COUNTED % (AUTO) 100 %; WHITE BLOOD COUNT 7.2 10^3/uL (4.0-10.5)
[2017-07-18 12:37] LABS: ALANINE AMINOTRANSFERASE 26 U/L (9-52); ALBUMIN 3.8 g/dL (3.5-5.0); ALKALINE PHOSPHATASE 62 U/L (38-126); ANION GAP 7 (5-19); ASPARTATE AMINO TRANSFERASE 16 U/L (14-36); BILIRUBIN,DIRECT 0.2 mg/dL (0.0-0.4); BILIRUBIN,TOTAL 0.8 mg/dL (0.2-1.3); BLOOD UREA NITROGEN 17 mg/dL (7-20); CALCIUM 9.8 mg/dL (8.4-10.2); CARBON DIOXIDE 31 mmol/L (22-30); CHLORIDE 102 mmol/L (98-107); GLUCOSE 98 mg/dL (75-110); PHOSPHORUS 4.1 mg/dL (2.5-4.5); POTASSIUM 4.5 mmol/L (3.6-5.0); SODIUM 140.1 mmol/L (137-145); TOTAL PROTEIN 6.3 g/dL (6.3-8.2); TRIGLYCERIDES 167 mg/dL (<150)
[2017-07-18 12:45] LABS: DIRECT LDL 158 mg/dL (<100)
[2017-07-18 12:46] LABS: C-REACTIVE PROTEIN < 5.0 mg/L (<10.0); VLDL CHOLESTEROL 33.4 mg/dL (10-31)
[2017-07-18 12:51] LABS: FREE T3 4.31 pg/mL (2.77-5.27); FREE T4 (FREE THYROXINE) 1.04 ng/dL (0.78-2.19)
[2017-07-18 13:05] LABS: THYROID STIMULATING HORMONE 0.34 uIU/mL (0.47-4.68)
== END ==
LOC: OD 11:35
PROVIDERS: ATTEND Family Medicine
DX: E05.90 Thyrotoxicosis, unspecified without thyrotoxic crisis or storm (principal); J44.9 Chronic obstructive pulmonary disease, unspecified
CPT/HCPCS: 36415; 80053; 80061; 84100; 84439; 84443; 84481; 85025; 85652; 86140; 86800

== ENCOUNTER 2017-07-24 05:53 | Emergency (ER) | payer MEDICARE, MEDICAID ==
[2017-07-24] MEDS ORDERED: IPRATROPIUM/ALBUTEROL 0.5-2.5 MG/3 ML AMPUL NEB ONE (06:01)
[2017-07-24] MEDS ORDERED: PREDNISONE 20 MG TABLET PO ONE (06:01)
[2017-07-24] MEDS ORDERED: ALBUTEROL SULFATE 0.083% NEB 2.5 MG/3 ML AMPUL NEB SCH (06:16)
[2017-07-24] MEDS: MAGNESIUM SULFATE/D5W 1 GM/100 ML RTUPB IV SCH ×2 (06:26→07:00)
--- NOTE | 2017-07-24 07:33 | ER Document Report ---
ED General - General Chief Complaint: Breathing Difficulty Stated Complaint: SHORT OF BREATH Time Seen by Provider: 07/24/17 06:10 Mode of Arrival: Ambulatory Information source: Patient, Relative, [facility] Records Notes: 77-year-old female history of COPD presents with complaints of shortness breath breathing. It is noted that the patient has had multiple similar episodes for the past year, with no specific diagnosis. Patient has had multiple admissions for similar in [place], patient recently moved here approximately 1 month ago and has now been here multiple times with similar complaints Patient has been seen by 3 pulmonologists with no diagnosis TRAVEL OUTSIDE OF THE [place] IN LAST 30 DAYS: No - HPI Onset: Other Onset/Duration: Intermittent, Persistent Quality of pain: No pain Severity: Moderate Pain Level: Denies Associated symptoms: Nonproductive cough, Shortness of breath Exacerbated by: Movement, Walking, Coughing Relieved by: Other - Breathing treatments Similar symptoms previously: Yes Recently seen / treated by doctor: Yes - Related Data Allergies/Adverse Reactions: cephalexin [From Keflex] Allergy (Verified 07/24/17 08:03) morphine Allergy (Verified 07/24/17 08:03) sulfamethoxazole [From Bactrim] Allergy (Verified 07/24/17 08:03) trimethoprim [From Bactrim] Allergy (Verified 07/24/17 08:03) Past Medical History - Social History Smoking Status: Former Smoker Cigarette use (# per day): No Chew tobacco use (# tins/day): No Smoking Education Provided: No Frequency of alcohol use: Occasional Family History: Reviewed & Not Pertinent Patient has suicidal ideation: No Patient has homicidal ideation: No - Past Medical History Cardiac Medical History: Reports: Hx Hypercholesterolemia, Hx Hypertension Pulmonary Medical History: Reports: Hx Asthma - allergy induced, Hx COPD Renal/ Medical History: Denies: Hx Peritoneal Dialysis GI Medical History: Reports: Hx Gastroesophageal Reflux Disease Psychiatric Medical History: Reports: Hx Bipolar Disorder Past Surgical History: Reports: Hx Appendectomy, Hx Hysterectomy Review of Systems - Review of Systems Notes: REVIEW OF SYSTEMS: CONSTITUTIONAL : Denies fever, chills, or sweats. Denies recent illness. EENT: Denies eye, ear, throat, or mouth pain or symptoms. Denies nasal or sinus congestion or discharge. Denies throat, tongue, or mouth swelling or difficulty swallowing. CARDIOVASCULAR: Denies chest pain. Denies palpitations or racing or irregular heart beat. Denies ankle edema. RESPIRATORY: Admits shortness of breath difficulty breathing wheezing GASTROINTESTINAL: Denies abdominal pain or distention. Denies nausea, vomiting , or diarrhea. Denies blood in vomitus, stools, or per rectum. Denies black, tarry stools. Denies constipation. GENITOURINARY: Denies difficulty urinating, painful urination, burning, frequency, blood in urine, or discharge. FEMALE GENITOURINARY: Denies vaginal bleeding, heavy or abnormal periods, irregular periods. Denies vaginal discharge or odor. MUSCULOSKELETAL: Denies back or neck pain or stiffness. Denies joint pain or swelling. SKIN: Denies rash, lesions or sores. HEMATOLOGIC : Denies easy bruising or bleeding. LYMPHATIC: Denies swollen, enlarged glands. NEUROLOGICAL: Denies confusion or altered mental status. Denies passing out or loss of consciousness. Denies dizziness or lightheadedness. Denies headache. Denies weakness or paralysis or loss of use of either side. Denies problems with gait or speech. Denies sensory loss, numbness, or tingling. Denies seizures. PSYCHIATRIC: Denies anxiety or stress. Denies depression, suicidal ideation, or homicidal ideation. ALL OTHER SYSTEMS REVIEWED AND NEGATIVE. PHYSICAL EXAMINATION: GENERAL: Moderate respiratory distress HEAD: Atraumatic, normocephalic. EYES: Pupils equal round and reactive to light, extraocular movements intact, conjunctiva are normal. ENT: Pursed breathing nares patent, oropharynx clear without exudates. Moist mucous membranes. NECK: Normal range of motion, supple without lymphadenopathy LUNGS: Wheezing left upper lobe left lower lobe HEART: Regular rate and rhythm without murmurs ABDOMEN: Soft, nontender, nondistended abdomen. No guarding, no rebound. No masses appreciated. Female : deferred Musculoskeletal: Normal range of motion, no pitting or edema. No cyanosis. NEUROLOGICAL: Cranial nerves grossly intact. Normal speech, normal gait. Normal sensory, motor exams PSYCH: Normal mood, normal affect. SKIN: Warm, Dry, normal turgor, no rashes or lesions noted. Dictation was performed using [employer] voice recognition software Course - Re-evaluation Re-evalutation: 07/24/17 09:21 Patient has been resting comfortably since breathing treatments and magnesium were given, she is in no distress vital signs have never noted any abnormality her lab work looks fantastic, they have an appointment on Thursday with Dr. Burch's office, I did speak with Dr. Burch as he is in the hospital rounding and he will evaluate the patient here as well 07/24/17 15:11 Dr. Burch evaluated the patient, will start the patient on a new medication, otherwise requested a barium swallow which have ordered at his request. Patient otherwise is well-appearing has not had any respiratory issues and is stable for discharge After performing a Medical Screening Examination, I estimate there is LOW risk for ACUTE CORONARY SYNDROME, PULMONARY EMBOLI, RESPIRATORY FAILURE, SEPSIS OR MENINGITIS, thus I consider the discharge disposition reasonable. I have reevaluated this patient multiple times and no significant life threatening changes are noted. The patient and I have discussed the diagnosis and risks, and we agree with discharging home with close follow-up. We also discussed returning to the Emergency Department immediately if new or worsening symptoms occur. We have discussed the symptoms which are most concerning (e.g., changing or worsening pain, trouble swallowing or breathing, neck stiffness, fever) that necessitate immediate return. - Laboratory Result Diagrams: 07/24/17 06:50 07/24/17 06:50 Laboratory results interpreted by me: 07/24/17 07/24/17 06:50 06:50 Eosinophils % 12.7 H Absolute Eosinophils 1.1 H Est GFR (Non-Af Amer) 59 L AST 40 H - Diagnostic Test Radiology reviewed: Image reviewed - Chest x-ray notes no significant abnormality, Reports reviewed Discharge - Discharge Clinical Impression: Bronchospasm Condition: Stable Disposition: HOME, SELF-CARE Additional Instructions: Please follow-up with Dr. Burch's office, he will have the commercial representative of a medication contact you. Forms: Follow-Up Radiology Testing Referrals: MARIANGEL BROWN DO [Primary Care Provider] - Follow up as needed
[2017-07-24 08:13] LABS: VENOUS BLOOD HCO3 26.4 mmol/L (20-32); VENOUS BLOOD PCO2 49.2 mmHg (35-63); VENOUS BLOOD PH 7.35 (7.30-7.42)
[2017-07-24 08:14] LABS: ABSOLUTE BASOPHILS # (AUTO) 0.1 10^3/uL (0.0-0.2); ABSOLUTE EOSINOPHILS # (AUTO) 1.1 10^3/uL (0.0-0.6); ABSOLUTE LYMPHOCYTES (AUTO) 2.1 10^3/uL (0.5-4.7); ABSOLUTE MONOCYTES (AUTO) 0.6 10^3/uL (0.1-1.4); ABSOLUTE NEUT (AUTO) 4.9 10^3/uL (1.7-8.2); BASOPHILS % (AUTO) 0.7 % (0-2); EOSINOPHILS % (AUTO) 12.7 % (0-6); HEMATOCRIT 42.3 % (36.0-47.0); HEMOGLOBIN 14.1 g/dL (12.0-15.5); LYMPHOCYTES % (AUTO) 23.9 % (13-45); MEAN CORPUSCULAR HEMOGLOBIN 30.4 pg (27.0-33.4); MEAN CORPUSCULAR HGB CONC 33.4 g/dL (32.0-36.0); MEAN CORPUSCULAR VOLUME 91 fl (80-97); MONOCYTES % (AUTO) 7.3 % (3-13); PLATELET COUNT 255 10^3/uL (150-450); RED BLOOD COUNT 4.64 10^6/uL (3.72-5.28); RED CELL DISTRIBUTION WIDTH 12.6 % (11.5-14.0); SEGMENTED NEUTROPHILS % (AUTO) 55.4 % (42-78); TOTAL CELLS COUNTED % (AUTO) 100 %; WHITE BLOOD COUNT 8.9 10^3/uL (4.0-10.5)
[2017-07-24 08:18] LABS: ALANINE AMINOTRANSFERASE 19 U/L (9-52); ALBUMIN 4.2 g/dL (3.5-5.0); ALKALINE PHOSPHATASE 68 U/L (38-126); ANION GAP 12 (5-19); ASPARTATE AMINO TRANSFERASE 40 U/L (14-36); BILIRUBIN,DIRECT 0.4 mg/dL (0.0-0.4); BILIRUBIN,TOTAL 0.4 mg/dL (0.2-1.3); BLOOD UREA NITROGEN 15 mg/dL (7-20); CALCIUM 9.9 mg/dL (8.4-10.2); CARBON DIOXIDE 28 mmol/L (22-30); CHLORIDE 105 mmol/L (98-107); GLUCOSE 93 mg/dL (75-110); TOTAL PROTEIN 7.3 g/dL (6.3-8.2)
--- NOTE | 2017-07-24 16:49 | PDOC CONSULTATION ---
Consultation Consult Date: 07/24/17 Attending physician:: WAQAR JAIME Consult reason:: dyspnea History of Present Illness Admission Date/PCP: MARIANGEL BROWN DO History of Present Illness: DOE FUNG is a 77 year old female recurrent ED visit for SOB she has not presented hypoxic = cough rare phlegm no hemoptysis ppd neg date ? recurrent breathing problems as a child.Freq passive smoke as a child and adult 1ppd x 60trs w/o cigs x 2 yrs worked as a [employer],1 cat,recently moved here from [place], [place] .no cp,1 pillow no PND occ noc cogh no edema hx osleep apnea using bipap for several years Past Medical History Cardiac Medical History: Reports: Hyperlipidema, Hypertension Pulmonary Medical History: Reports: Asthma - allergy induced, Chronic Obstructive Pulmonary Disease (COPD), Sleep Apnea Endocrine Medical History: Reports: Diabetes Mellitus Type 2, Hyperthyroidism, Obesity Denies: Diabetes Mellitus Type 1, Hypothyroidism Renal/ Medical History: Denies: Chronic Kidney Disease, End Stage Renal Disease Malignancy Medical History: Reports: Skin Cancer GI Medical History: Reports: Gastroesophageal Reflux Disease Denies: Cirrhosis, Hepatitis Musculoskeltal Medical History: Denies: Arthritis, Gout Skin Medical History: Denies: Psoriasis Psychiatric Medical History: Reports: Bipolar Disorder Hematology: Denies: Anemia, Sickle Cell Disease Infectious Medical History: Denies: Clostridium Difficile Past Surgical History Past Surgical History: Reports: Appendectomy, Hysterectomy, Other - orif l WRIST Social History Information Source: Patient, H Records Lives with: Family Smoking Status: Former Smoker Cigarettes Packs Per Day: 1 Number of Years Smokin Last Time Smoked: 2 Passive smoke exposure as: Both Frequency of Alcohol Use: Rare Hx Recreational Drug Use: No Hx Prescription Drug Abuse: No Do you have pets?: No Have you had any respiratory illnesses as a child?: No Have you been exposed to any sick contacts recently?: No Have you had any recent respiratory illnesses?: Yes Have you travelled outside of [place] in the past 12 months?: No Family History Family History: CAD, DM, Hyperlipidemia, Hypertension, Malignancy - SKIN Parental Family History Reviewed: Yes Children Family History Reviewed: Yes Sibling(s) Family History Reviewed.: Yes Medication/Allergy Home Medications: Calcium Carbonate [Tums] 200 mg PO TID 06/07/17 Diphenhydramine HCl [Benadryl] 25 mg PO QHS 06/07/17 Mometasone Furoate [Nasonex] 17 gm NS DAILY 06/07/17 Albuterol Sulfate [Ventolin 0.083% Neb 2.5 mg/3 ml Ampul] 1 vial NEB Q4 PRN #25 vial 06/28/17 Albuterol Sulfate [Proair HFA] 2 puff IH Q6 PRN 07/24/17 Arformoterol Tartrate [Brovana Inhalation Solution 15 mcg/2 mL] 1 applic IH BID 07/24/17 Budesonide [Pulmicort Neb 0.25 mg/2 ml Ampul] 1 applic IH BID 07/24/17 Bupropion HCl [Wellbutrin Xl 300mg 24hr Tablet] 1 tab PO DAILY 07/24/17 Lamotrigine [Lamictal] 1 tab PO DAILY 07/24/17 Losartan Potassium 1 tab PO DAILY 07/24/17 Methimazole 1 tab PO TID 07/24/17 Metoprolol Succinate 1 tab PO DAILY 07/24/17 Montelukast Sodium [Singulair 10 mg Tablet] 1 tab PO DAILY 07/24/17 Omeprazole 1 cap PO DAILY 07/24/17 Allergies/Adverse Reactions: cephalexin [From Keflex] Allergy (Verified 07/24/17 08:03) morphine Allergy (Verified 07/24/17 08:03) sulfamethoxazole [From Bactrim] Allergy (Verified 07/24/17 08:03) trimethoprim [From Bactrim] Allergy (Verified 07/24/17 08:03) Review of Systems Constitutional: PRESENT: fatigue, weakness. ABSENT: anorexia, chills, fever(s) , night sweats Ears: ABSENT: hearing changes Nose, Mouth, and Throat: ABSENT: mouth pain, sore throat Cardiovascular: PRESENT: dyspnea on exertion, orthropnea. ABSENT: palpitations Respiratory: PRESENT: dyspnea. ABSENT: hemoptysis Gastrointestinal: ABSENT: abdominal pain, bloating, coffee ground emesis, dysphagia, heartburn, hematemesis, melena Genitourinary: PRESENT: nocturia. ABSENT: dysuria, hematuria Integumentary: ABSENT: pruritus, rash Neurological: ABSENT: abnormal gait, abnormal movements, abnormal speech, frequent falls, lack of coordination, memory loss Psychiatric: ABSENT: homidical ideation, suicidal ideation Endocrine: ABSENT: menstrual abnormalities, polydipsia, polyuria Hematologic/Lymphatic: ABSENT: easy bruising Physical Exam General appearance: PRESENT: no acute distress, cooperative, disheveled Head exam: PRESENT: atraumatic, normocephalic Eye exam: PRESENT: conjunctiva pale, EOMI. ABSENT: nystagmus, periorbital swelling Mouth exam: PRESENT: dry mucosa, neck supple, tongue midline Neck exam: ABSENT: carotid bruit, JVD, lymphadenopathy, thyromegaly, tracheal deviation, tracheostomy Respiratory exam: PRESENT: decreased breath sounds, prolonged expiratory phas, rhonchi, unlabored. ABSENT: retraction Cardiovascular exam: PRESENT: RRR, +S1, +S2 Pulses: PRESENT: normal radial pulses GI/Abdominal exam: PRESENT: diminished bowel sounds, distended Extremities exam: ABSENT: clubbing Musculoskeletal exam: PRESENT: deformity, dislocation Neurological exam: PRESENT: alert, awake Psychiatric exam: PRESENT: normal mood Skin exam: PRESENT: dry, warm Results Laboratory Results: 07/24/17 06:50 07/24/17 06:50 07/24/17 07/24/17 07/24/17 06:50 06:50 06:50 WBC 8.9 RBC 4.64 Hgb 14.1 Hct 42.3 MCV 91 MCH 30.4 MCHC 33.4 RDW 12.6 Plt Count 255 Seg Neutrophils % 55.4 Lymphocytes % 23.9 Monocytes % 7.3 Eosinophils % 12.7 H Basophils % 0.7 Absolute Neutrophils 4.9 Absolute Lymphocytes 2.1 Absolute Monocytes 0.6 Absolute Eosinophils 1.1 H Absolute Basophils 0.1 VBG pH 7.35 VBG pCO2 49.2 VBG HCO3 26.4 VBG Base Excess 0 Sodium 145.0 Potassium 4.0 Chloride 105 Carbon Dioxide 28 Anion Gap 12 BUN 15 Creatinine 0.93 Est GFR ( Amer) > 60 Est GFR (Non-Af Amer) 59 L Glucose 93 Calcium 9.9 Total Bilirubin 0.4 AST 40 H ALT 19 Alkaline Phosphatase 68 Total Protein 7.3 Albumin 4.2 07/24/17 06:50 NT-Pro-B Natriuret Pep 269 Assessment & Plan - Diagnosis (1) COPD (chronic obstructive pulmonary disease) Is this a current diagnosis for this admission?: Yes Plan: pursed lip LAMA breathing Modified Ba swallow (2) History of tobacco abuse Is this a current diagnosis for this admission?: Yes Plan: 1 ppd 57 yrs w/o cigs per patient x 18-24 months - Plan Summary Plan Summary: fu in office as scheduled
[2017-07-25 16:38] LABS: COTININE URINE Negative ng/mL (Cutoff=300)
== END 2017-07-24 10:55 | disposition home or self-care (01) ==
LOC: ER 05:53
DX: J44.9 Chronic obstructive pulmonary disease, unspecified (principal); R06.02 Shortness of breath; R05 Cough; I10 Essential (primary) hypertension; Z88.1 Allergy status to other antibiotic agents; Z88.5 Allergy status to narcotic agent; Z87.891 Personal history of nicotine dependence
CPT/HCPCS: 94640; 99285; 96365; 36415; 85025; 80053; 80307; 82803; 83880; 94660; J3475; A9270 ×3; J7512; J7620

== ENCOUNTER 2017-07-26 18:12 | Emergency (ER) | payer MEDICARE, MEDICAID ==
[2017-07-26] MEDS ORDERED: IPRATROPIUM/ALBUTEROL 0.5-2.5 MG/3 ML AMPUL NEB ONE ×2 (18:32→21:01)
--- NOTE | 2017-07-26 18:35 | ER Document Report ---
ED Medical Screen (RME) - General Chief Complaint: Breathing Difficulty Stated Complaint: SHORTNESS OF BREATH Time Seen by Provider: 07/26/17 18:24 Notes: RAPID MEDICAL EVALUATION DISCLOSURE I have seen this patient as part of a Rapid Medical Evaluation and, if applicable, placed any initially appropriate orders. The patient will be seen and fully evaluated, including a full history and physical exam, by a provider ( in Main ED or Fast Track) when a room becomes available. 77-year-old female here with daughter who reports she has had a progressive decline over the past few weeks with shortness of breath cough and wheezing. Daughter reports that she is no longer able to walk more than a few steps without significant shortness of breath and wheezing. She has also been complaining over the past few days of some midsternal nonradiating chest pain. They have been seen here several times this month for the same thing. Patient states that she is using all of her medications as directed and is not seeing much of an improvement. They have an appointment next week with the cloth examiner. EXAM Mild end expiratory wheezes diffusely Minimally decreased aeration TRAVEL OUTSIDE OF THE [place] IN LAST 30 DAYS: No - Related Data Allergies/Adverse Reactions: cephalexin [From Keflex] Allergy (Verified 07/24/17 08:03) morphine Allergy (Verified 07/24/17 08:03) sulfamethoxazole [From Bactrim] Allergy (Verified 07/24/17 08:03) trimethoprim [From Bactrim] Allergy (Verified 07/24/17 08:03) Past Medical History - Social History Frequency of alcohol use: Rare Drug Abuse: None - Past Medical History Cardiac Medical History: Reports: Hx Hypercholesterolemia, Hx Hypertension Pulmonary Medical History: Reports: Hx Asthma - allergy induced, Hx COPD, Hx Sleep Apnea Endocrine Medical History: Reports: Hx Diabetes Mellitus Type 2, Hx Hyperthyroidism. Denies: Hx Diabetes Mellitus Type 1, Hx Hypothyroidism Renal/ Medical History: Denies: Hx End Stage Renal Disease, Hx Peritoneal Dialysis Malignancy Medical History: Reports: Hx Skin Cancer GI Medical History: Reports: Hx Gastroesophageal Reflux Disease. Denies: Hx Cirrhosis, Hx Hepatitis Musculoskeltal Medical History: Denies Hx Arthritis, Denies Hx Gout Skin Medical History: Denies Hx Psoriasis Psychiatric Medical History: Reports: Hx Bipolar Disorder Infectious Medical History: Denies: Hx C-Diff, Hx Hepatitis Past Surgical History: Reports: Hx Appendectomy, Hx Hysterectomy, Other - orif l WRIST Physical Exam - Vital signs Vitals: Temp Pulse Resp BP Pulse Ox 97.8 F 83 22 H 150/70 H 96 07/26/17 18:15 07/26/17 18:15 07/26/17 18:15 07/26/17 18:15 07/26/17 18:15 Course - Vital Signs Vital signs: Temp Pulse Resp BP Pulse Ox 97.8 F 83 22 H 150/70 H 96 07/26/17 18:15 07/26/17 18:15 07/26/17 18:15 07/26/17 18:15 07/26/17 18:15
[2017-07-26] MEDS ORDERED: PREDNISONE 20 MG TABLET PO ONE ×2 (18:36→23:18)
[2017-07-26 19:23] LABS: ARTERIAL BLOOD BASE EXCESS 0.5 mmol/L; ARTERIAL BLOOD H2CO3 1.04 mmol/L (1.05-1.35); ARTERIAL BLOOD HCO3 23.8 mmol/L (20-26); ARTERIAL BLOOD O2 SATURATION 96.2 % (94-98); ARTERIAL BLOOD PCO2 34.5 mmHg (35-45); ARTERIAL BLOOD PH 7.46 (7.35-7.45); ARTERIAL BLOOD PO2 78.1 mmHg (80-100); ARTERIAL BLOOD TOTAL CO2 24.8 mmol/L (21-25)
[2017-07-26 19:25] LABS: ARTERIAL BLOOD FIO2 ROOM AIR
[2017-07-26 19:50] LABS: ABSOLUTE BASOPHILS # (AUTO) 0.1 10^3/uL (0.0-0.2); ABSOLUTE EOSINOPHILS # (AUTO) 1.2 10^3/uL (0.0-0.6); ABSOLUTE LYMPHOCYTES (AUTO) 1.7 10^3/uL (0.5-4.7); ABSOLUTE MONOCYTES (AUTO) 0.6 10^3/uL (0.1-1.4); ABSOLUTE NEUT (AUTO) 5.2 10^3/uL (1.7-8.2); BASOPHILS % (AUTO) 1.1 % (0-2); EOSINOPHILS % (AUTO) 14.2 % (0-6); HEMATOCRIT 43.3 % (36.0-47.0); HEMOGLOBIN 14.6 g/dL (12.0-15.5); LYMPHOCYTES % (AUTO) 19.4 % (13-45); MEAN CORPUSCULAR HEMOGLOBIN 30.3 pg (27.0-33.4); MEAN CORPUSCULAR HGB CONC 33.8 g/dL (32.0-36.0); MEAN CORPUSCULAR VOLUME 90 fl (80-97); MONOCYTES % (AUTO) 6.4 % (3-13); PLATELET COUNT 287 10^3/uL (150-450); RED BLOOD COUNT 4.84 10^6/uL (3.72-5.28); RED CELL DISTRIBUTION WIDTH 13.1 % (11.5-14.0); SEGMENTED NEUTROPHILS % (AUTO) 58.9 % (42-78); TOTAL CELLS COUNTED % (AUTO) 100 %; WHITE BLOOD COUNT 8.8 10^3/uL (4.0-10.5)
[2017-07-26 20:09] LABS: ANION GAP 9 (5-19); BLOOD UREA NITROGEN 11 mg/dL (7-20); CALCIUM 10.1 mg/dL (8.4-10.2); CARBON DIOXIDE 30 mmol/L (22-30); CHLORIDE 103 mmol/L (98-107); GLUCOSE 91 mg/dL (75-110); POTASSIUM 4.4 mmol/L (3.6-5.0); SODIUM 142.3 mmol/L (137-145)
--- NOTE | 2017-07-26 20:18 | RADIOLOGY REPORT (SQ) ---
EXAM DESCRIPTION: CHEST 2 VIEWS COMPLETED DATE/TIME: 07/26/2017 7:55 pm REASON FOR STUDY: coughing yellow sputum COMPARISON: Chest x-ray 06/27/2017, 07/19/2017. EXAM PARAMETERS: NUMBER OF VIEWS: two views TECHNIQUE: Digital Frontal and Lateral radiographic views of the chest acquired. RADIATION DOSE: NA LIMITATIONS: none FINDINGS: LUNGS AND PLEURA: No consolidation, pneumothorax or pleural effusion. Calcified granuloma again noted at the right lung base. MEDIASTINUM AND HILAR STRUCTURES: No masses or contour abnormalities. HEART AND VASCULAR STRUCTURES: Heart normal size. No evidence for failure. BONES: No acute findings. HARDWARE: None in the chest. IMPRESSION: NO ACUTE RADIOGRAPHIC FINDING IN THE CHEST. TECHNICAL DOCUMENTATION: JOB ID: [id number] [employer]- All Rights Reserved Reading location - IP/workstation name: [email or web address]
[2017-07-26] MEDS ORDERED: METHYLPREDNISOLONE INJ 125 MG/2 ML SDV IV ONE (20:27)
--- NOTE | 2017-07-26 20:46 | ER Document Report ---
ED Respiratory Problem - General Chief Complaint: Breathing Difficulty Stated Complaint: SHORTNESS OF BREATH Time Seen by Provider: 07/26/17 18:24 Mode of Arrival: Wheelchair Information source: Patient, Relative Notes: Patient is a 77-year-old female who presents with complaints of shortness of breath. Patient has been seen here multiple times over the last 2 months. Most recently patient was seen here on Thursday and discharged with follow-up appointment with pulmonology for Thursday. Patient reports she has been feeling worsening shortness of breath and dyspnea on exertion since discharge from the emergency room Thursday. Patient has respiratory history of sleep apnea, COPD, and asthma. Patient reports that she has been having a chronic dry cough states that she just cannot catch her breath while she is at home and that she has been using her albuterol inhaler multiple times daily. Patient denies any other symptoms such as fever. Patient's daughter is at bedside who is her primary agriculture consultant. TRAVEL OUTSIDE OF THE [place] IN LAST 30 DAYS: No - Related Data Allergies/Adverse Reactions: cephalexin [From Keflex] Allergy (Verified 07/24/17 08:03) morphine Allergy (Verified 07/24/17 08:03) sulfamethoxazole [From Bactrim] Allergy (Verified 07/24/17 08:03) trimethoprim [From Bactrim] Allergy (Verified 07/24/17 08:03) Past Medical History - General Information source: Patient, Relative - Social History Smoking Status: Former Smoker Frequency of alcohol use: Rare Drug Abuse: None Family History: CAD, DM, Hyperlipidemia, Hypertension, Malignancy - SKIN Patient has suicidal ideation: No Patient has homicidal ideation: No - Past Medical History Cardiac Medical History: Reports: Hx Hypercholesterolemia, Hx Hypertension Pulmonary Medical History: Reports: Hx Asthma - allergy induced, Hx COPD, Hx Sleep Apnea Endocrine Medical History: Reports: Hx Diabetes Mellitus Type 2, Hx Hyperthyroidism. Denies: Hx Diabetes Mellitus Type 1, Hx Hypothyroidism Renal/ Medical History: Denies: Hx End Stage Renal Disease, Hx Peritoneal Dialysis Malignancy Medical History: Reports: Hx Skin Cancer GI Medical History: Reports: Hx Gastroesophageal Reflux Disease. Denies: Hx Cirrhosis, Hx Hepatitis Musculoskeltal Medical History: Denies Hx Arthritis, Denies Hx Gout Skin Medical History: Denies Hx Psoriasis Psychiatric Medical History: Reports: Hx Bipolar Disorder Infectious Medical History: Denies: Hx C-Diff, Hx Hepatitis Past Surgical History: Reports: Hx Appendectomy, Hx Hysterectomy, Other - orif l WRIST Review of Systems - Review of Systems Constitutional: No symptoms reported EENT: No symptoms reported Cardiovascular: No symptoms reported Respiratory: See HPI Gastrointestinal: No symptoms reported Genitourinary: No symptoms reported Female Genitourinary: No symptoms reported Musculoskeletal: No symptoms reported Skin: No symptoms reported Hematologic/Lymphatic: No symptoms reported Neurological/Psychological: No symptoms reported Physical Exam - Vital signs Vitals: Temp Pulse Resp BP Pulse Ox 97.8 F 83 22 H 150/70 H 96 07/26/17 18:15 07/26/17 18:15 07/26/17 18:15 07/26/17 18:15 07/26/17 18:15 - Notes Notes: PHYSICAL EXAMINATION: GENERAL: Well-appearing, well-nourished and in no acute distress. HEAD: Atraumatic, normocephalic. EYES: Pupils equal round and reactive to light, extraocular movements intact, conjunctiva are normal. ENT: Nares patent, oropharynx clear without exudates. Moist mucous membranes. NECK: Normal range of motion, supple without lymphadenopathy LUNGS: Diminished lung sounds bilaterally, mild expiratory wheezes, no rales or rhonchi. HEART: Regular rate and rhythm without murmurs ABDOMEN: Soft, nontender, nondistended abdomen. No guarding, no rebound. No masses appreciated. Female : deferred Musculoskeletal: Normal range of motion, no pitting or edema. No cyanosis. NEUROLOGICAL: Cranial nerves grossly intact. Normal speech, normal gait. Normal sensory, motor exams PSYCH: Normal mood, normal affect. SKIN: Warm, Dry, normal turgor, no rashes or lesions noted. Course - Re-evaluation Re-evalutation: Patient's entire workup is unremarkable, as it has been the last several times she has been in the emergency room. Patient does note improvement after treatment with IV Solu-Medrol and 2 g of mag sulfate. Patient's mild wheezing has resolved after treatment. Patient taken for road test with pulse ox, patient's pulse ox does drop from 98 to about 93% however patient does recover to being back in the bed. Patient endorses significant dyspnea on exertion and is requesting admission to the hospital. Patient has no admission criteria same as with other previous ED visits. Did call and discuss patient with hospitalist, Dr. Causey who recommends that I discharge the patient on prednisone 20 mg twice daily she has not been sent home on steroids on the last ED visit. Discussed this with patient did get some pushback stating that she does have a follow-up appointment scheduled tomorrow with pulmonology, Dr. Burch however she feels if she was admitted this may "speed up the process ". Patient does appear short of breath with exertion however patient's vital signs remained stable, O2 sats remained above 95%. Supervising physician was present for my conversation regarding this patient's discharge who agrees that patient's workup is unremarkable and patient does not meet any admission criteria. Patient and family member at bedside ultimately agree to be discharged home and will keep 1 PM appointment Thursday with pulmonology. Patient given ED return precautions and patient and family member verbalized understanding. Dictation of this chart was performed using voice recognition software; therefore, there may be some unintended grammatical errors. - Vital Signs Vital signs: Temp Pulse Resp BP Pulse Ox 97.8 F 83 22 H 135/55 H 95 07/26/17 18:15 07/26/17 18:15 07/26/17 23:22 07/26/17 23:22 07/26/17 23:22 - Laboratory Result Diagrams: 07/26/17 19:30 07/26/17 19:30 Laboratory results interpreted by me: 07/26/17 07/26/17 19:02 19:30 Eosinophils % 14.2 H Absolute Eosinophils 1.2 H Carbonic Acid 1.04 L ABG pH 7.46 H ABG pCO2 34.5 L ABG pO2 78.1 L Discharge - Discharge Clinical Impression: Dyspnea on exertion, Bronchospasm COPD (chronic obstructive pulmonary disease) Qualifiers: COPD type: unspecified COPD Qualified Code(s): J44.9 - Chronic obstructive pulmonary disease, unspecified Condition: Stable Disposition: HOME, SELF-CARE Additional Instructions: Dyspnea, Nonspecific You were evaluated for shortness of breath, or dyspnea. Dyspnea has many causes, and some are more serious than others. Sometimes it's impossible to diagnose the cause of dyspnea with the tests that are available on an emergency basis. Based on our evaluation today, you do not need hospitalization now. We found no evidence of pneumonia, collapsed lung, blood clots in the lung, tumors , or heart failure. Causes of non-specific dyspnea can include asthma or bronchospasm, hyperventilation, emotional distress, heart disease, emphysema, fibrosis of the lung, and stiffness of the chest wall. In healthy individuals with a single episode, it's sometimes reasonable to do nothing but wait to see if the problem occurs again. Additional tests used to evaluate dyspnea can include cardiac stress testing, echocardiography, pulmonary function testing, CAT scan of the chest, bronchoscopy or pulmonary biopsy. Return if shortness of breath persists or worsens, or if you develop chest pain, fever, cough, confusion, or fainting. Please take the prednisone as prescribed. Please follow-up with Dr. Burch 's office tomorrow as initially scheduled. Prescriptions: Prednisone [Deltasone 20 mg Tablet] 1 tab PO BID 5 Days #10 tablet Referrals: MARIANGEL BROWN DO [Primary Care Provider] - Follow up as needed ZIYAD BURCH MD [ACTIVE STAFF] - Follow up as needed
[2017-07-26] MEDS: MAGNESIUM SULFATE/D5W 1 GM/100 ML RTUPB IV SCH ×2 (21:09→21:10)
--- NOTE | 2017-07-26 22:10 | EKG REPORT ---
SEVERITY:- NORMAL ECG - SINUS RHYTHM : Confirmed by: Ranjan Estrella MD 26-Jul-2017 22:09:20
[2017-07-26 23:41] VITALS: BP 135/55
== END 2017-07-26 23:40 | disposition home or self-care (01) ==
LOC: ER 18:12
DX: J20.9 Acute bronchitis, unspecified (principal); J44.9 Chronic obstructive pulmonary disease, unspecified; E78.00 Pure hypercholesterolemia, unspecified; I10 Essential (primary) hypertension; E11.9 Type 2 diabetes mellitus without complications; K21.9 Gastro-esophageal reflux disease without esophagitis; Z88.6 Allergy status to analgesic agent; Z88.3 Allergy status to other anti-infective agents; Z90.710 Acquired absence of both cervix and uterus
CPT/HCPCS: 93005; 99285; 36415; 82803; 85025; 80048; 84484; 71046; 93010; J2930; J3475; A9270 ×2; J7512; J7620

== ENCOUNTER → 2017-07-27 | Outpatient (CLI) | payer MEDICARE, MEDICAID ==
[2017-07-31 17:37] LABS: M001-IGE PENICILLIUM CHRYSOGEN <0.10 kU/L (Class 0); M002-IGE CLADOSPORIUM HERBARUM <0.10 kU/L (Class 0); M003-IGE ASPERGILLUS FUMIGATUS <0.10 kU/L (Class 0); M004-IGE MUCOR RACEMOSUS <0.10 kU/L (Class 0); M005-IGE CANDIDA ALBICANS <0.10 kU/L (Class 0); M006-IGE ALTERNARIA ALTERNATA <0.10 kU/L (Class 0); M009-IGE FUSARIUM PROLIFERATUM <0.10 kU/L (Class 0); M012-IGE AUREOBASIDI PULLULANS <0.10 kU/L (Class 0); M013-IGE PHOMA BETAE <0.10 kU/L (Class 0); M014-IGE EPICOCCUM PURPURASCEN <0.10 kU/L (Class 0)
[2017-07-31 20:07] LABS: M010-IGE STEMPHYLIUM HERBARUM <0.10 kU/L (Class 0)
== END ==
LOC: OD 16:56
PROVIDERS: ATTEND Physician Assistant
DX: J45.41 Moderate persistent asthma with (acute) exacerbation (principal)
CPT/HCPCS: 36415; 82785; 86003

== ENCOUNTER → 2017-08-20 | Outpatient (CLI) | payer MEDICARE, MEDICAID ==
--- NOTE | 2017-08-20 11:13 | RADIOLOGY REPORT (SQ) ---
EXAM DESCRIPTION: YANELY SWALLOW COMPLETED DATE/TIME: 08/20/2017 8:28 am REASON FOR STUDY: GASTROESOPHAGEAL REFLUX R13.10 DYSPHAGIA, UNSPECIFIED COMPARISON: None. TECHNIQUE: Videofluoroscopic swallowing examination was performed in conjunction with speech patholo gy. Videofluoroscopic imaging was obtained and reviewed and these are the findings: RADIATION DOSE: 1 minutes 17 seconds of fluoroscopy was used. 1 images saved to PACS. LIMITATIONS: None FINDINGS: The patient was brought into the fluoro room and placed upright on a modified barium swall ow chair. The patient was then given multiple consistencies mixed with barium to swallow under live fluoroscopic video guidance. According to the Speech Pathologist there was flash laryngeal penetrati on with thin liquids. No aspiration seen. IMPRESSION: FLASH LARYNGEAL PENETRATION WITHOUT ASPIRATION.PLEASE SEE SPEECH PATHOLOGIST REPORT FOR OTHER FINDINGS AND RECOMMENDATIONS. COMMENT: Quality ID [id number]: Final reports for procedures using fluoroscopy that document radiation exp osure indices, or exposure time and number of fluorographic images (if radiation exposure indices are not available) TECHNICAL DOCUMENTATION: JOB ID: [id number] [employer]- All Rights Reserved Reading location - IP/workstation name: [facility]
--- NOTE | 2017-08-20 17:41 | ST Modified Barium Swallow ---
Recommendation - Recommendations Recommendations: No diet change recommendations. Recommend alternating bites and sips and reduced rate for liquids. Medical Diagnoses - Medical Diagnoses Medical Diagnosis Description & ICD-10 Code(s): GERD, dysphagia R13.10 Other Medical Diagnoses/Co-Morbidities: per patient report: COPD, asthma, emphysema, osteoporosis, stomach ulcers ST Modified Barium Swallow - General Date: 08/20/17 Referring Physician: DI Raphael Risks/Precautions: None Date of Onset: 08/14/16 - approximate date Reason for Referral: choking sensation - History History obtained from: Patient -: Medical - Patient reports that for approximately 1 year, she has had some difficulty with "choking" on specific foods. States that she has to be careful with corn and raw carrots. No recent pneumonia or history of stroke present. Medications: patient unable to give complete mediation list. Does report taking omeprazole, prednizone, and thyroid medication - Functional Status Prior Functional Status: INDEPENDENT: feeding - independent Current Functional Limitations: feeding - choking sensation - Subjective Patient/caregiver goal(s): safe swallow Cognitive-Linguistic Function: WNL Speech Intelligibility: WNL Current Nutritional Means: PO Current PO diet: Regular Current symptoms: Coughing Pain: Patient reports, 0/5 - Objective Assessment: Upright, Left Lateral - Food Trials Used Food trials used: Thin liquids, Pureed, Regular The patient: Was Able to Self Feed - Oral-Motor Skills Dentition: Dentures-Upper, Dentures-Lower Laryngeal Function: Volitional Cough - WFL, Volitional Swallow - WFL - Assessment Oral prep: Normal Labial closure: Adequate Leakage: None Mastication: Adequate Lingual Movement: Normal Oral stage: Normal for this Procedure - Pharyngeal Stage Initiation of Pharyngeal Stage Reflex: Normal Decreased laryngeal elevation: No Reduced Velopharyngeal Closure: no Reduced pressure generation: No reduced tongue-based retraction: No Pre-swallow pooling in valleculae: None Pre-Swallow pooling in pyriforms: None Reduced Thyro-Hyoid approximation: No Reduced epiglottic excursion: No Reduced pharyngeal peristalsis/contraction: No Multiple Swallows with: Cleared w/ Dry Swallow Post-swallow residulas vallecular: Mild Post-Swallow residuals in pyriforms: None - Esophageal Stage Cricopharyngeal Function: Normal - Fall Risk Assessment Medications/Conditions that increase fall risks include: Antidepressants, sedatives, anti-arrhythmic, diuretic, benzodiazipenes, neuroleptics. BP regulation problems, cardiac problems, balance or gait deficits, neurological problems. Is patient considered at risk for falls: no Fall Risk Actions Taken: No action needed - Behavioral Observations During evaluation process patient: was pleasant, was cooperative, able to answer questions, provided medical history - Treatment / Educational Needs: Treatment/Education Needs: Treatment consisted of patient education on the role of the Speech Pathologist. Patient's plan of care and golas were communicated as well as scheduling and attendance policies. Recommendations for initial home program were shared. Patient demonstrated understanding and verbalized agreement. - Impression/Summary Laryngeal Penetration: Yes, Flash Consistency: Thin Tracheal Aspiration: no Effective Clearing: yes Patient presents with: Normal swallow at eval Risk of Aspiration: Minimal Risk of nutritional compromise: WNL Evaluation and Findings: Patient presents with functional swallowing skills. Mild valleculae residue seen, cleared easily with second swallow. Flash penetration seen with thin liquids, however, no significant risk for aspiration seen. - Recommendations Solid diet recommendations: Regular Liquid Diet Modification: Thin Pt/Family education and followup with MD: Yes Dysphagia therapy with BUS ESCORT: no Reflux Precautions: Taught to Patient Recommended techniques: Fully Upright During Meal, Alternate Bites/Sips Supervision: Independent Information, Precautions and Recommendations: Patient (Written), Patient (Verbal ) - Time Total Time: 20 - Plan of Care Strategies to optimize patient understanding include:: ongoing assessment of educational needs, implementation of educational strategies, and re-education. - - -: Thank you for the opportunity to work with this patient and his/her family. Should you have any questions about this patient's plan or progress, I can be reached at [phone]. Charge G Code? - - -: Yes ST F.L. Impairment Category - Rationale Based On Rationale Based On: Func. Asses. Tool Results - Swallowing Current G8996: CH 0% Impaired Goal G8997: CH 0% Impaired Discharge G8998: CH 0% Impaired
== END ==
LOC: RAD 07:42
PROVIDERS: ATTEND Physician Assistant
DX: R13.10 Dysphagia, unspecified (principal); K21.9 Gastro-esophageal reflux disease without esophagitis
CPT/HCPCS: 74230; 92611; G8996; G8997; G8998

== ENCOUNTER 2017-10-06 21:52 | Emergency (ER) | payer MEDICARE, MEDICAID ==
[2017-10-06] MEDS ORDERED: IPRATROPIUM/ALBUTEROL 0.5-2.5 MG/3 ML AMPUL NEB ONE (22:30)
--- NOTE | 2017-10-06 22:44 | ER Document Report ---
ED Medical Screen (RME) - General Chief Complaint: Shortness Of Breath Stated Complaint: SHORTNESS OF BREATH Time Seen by Provider: 10/06/17 22:06 Mode of Arrival: Wheelchair Information source: Patient Notes: Patient is a 77-year-old female with history of COPD and asthma who presents with chief complaint of shortness of breath, tightness in her chest and a productive cough with yellow sputum for the last several days. Patient is unsure if she has had a fever however she reports that she has felt like she has had chills. Patient is seen by pulmonology and is on multiple new medications for her COPD exacerbations. Exam: No wheezing noted on auscultation however patient's lung sounds are diminished. Patient alert, oriented and does not appear to be any acute distress. I have greeted and performed a rapid initial assessment of this patient. A comprehensive ED assessment and evaluation of the patient, analysis of test results and completion of the medical decision making process will be conducted by additional ED providers. Dictation of this chart was performed using voice recognition software; therefore, there may be some unintended grammatical errors. TRAVEL OUTSIDE OF THE [place] IN LAST 30 DAYS: No - Related Data Allergies/Adverse Reactions: cephalexin [From Keflex] Allergy (Verified 07/24/17 08:03) morphine Allergy (Verified 07/24/17 08:03) sulfamethoxazole [From Bactrim] Allergy (Verified 07/24/17 08:03) trimethoprim [From Bactrim] Allergy (Verified 07/24/17 08:03) Past Medical History - Social History Chew tobacco use (# tins/day): No Frequency of alcohol use: Rare Drug Abuse: None - Past Medical History Cardiac Medical History: Reports: Hx Hypercholesterolemia, Hx Hypertension Pulmonary Medical History: Reports: Hx Asthma - allergy induced, Hx COPD, Hx Sleep Apnea Endocrine Medical History: Reports: Hx Diabetes Mellitus Type 2, Hx Hyperthyroidism. Denies: Hx Diabetes Mellitus Type 1, Hx Hypothyroidism Renal/ Medical History: Denies: Hx End Stage Renal Disease, Hx Peritoneal Dialysis Malignancy Medical History: Reports: Hx Skin Cancer GI Medical History: Reports: Hx Gastroesophageal Reflux Disease. Denies: Hx Cirrhosis, Hx Hepatitis Musculoskeltal Medical History: Denies Hx Arthritis, Denies Hx Gout Skin Medical History: Denies Hx Psoriasis Psychiatric Medical History: Reports: Hx Bipolar Disorder Infectious Medical History: Denies: Hx C-Diff, Hx Hepatitis Past Surgical History: Reports: Hx Appendectomy, Hx Hysterectomy, Other - orif l WRIST Physical Exam - Vital signs Vitals: Temp Pulse Resp BP Pulse Ox 98.3 F 92 16 155/74 H 96 10/06/17 22:00 10/06/17 22:00 10/06/17 22:00 10/06/17 22:00 10/06/17 22:00 Course - Vital Signs Vital signs: Temp Pulse Resp BP Pulse Ox 98.3 F 92 16 155/74 H 96 10/06/17 22:00 10/06/17 22:00 10/06/17 22:00 10/06/17 22:00 10/06/17 22:00 Doctor's Discharge - Discharge Referrals: MARIANGEL BROWN DO [Primary Care Provider] - Follow up as needed
[2017-10-06] MEDS ORDERED: MAGNESIUM SULFATE INJ 8 MEQ/2 ML IV ONE (22:54)
[2017-10-06] MEDS ORDERED: ALBUTEROL SULFATE 0.083% NEB 2.5 MG/3 ML AMPUL NEB ONE (22:56)
[2017-10-06] MEDS ORDERED: MAGNESIUM SULFATE/D5W 1 GM/100 ML RTUPB IV ONE (22:58)
--- NOTE | 2017-10-06 22:58 | ER Document Report ---
ED General - General Mode of Arrival: Wheelchair Information source: Patient TRAVEL OUTSIDE OF THE [place] IN LAST 30 DAYS: No <JEANE ROWELL - Last Filed: 10/07/17 03:32> <VA TAY - Last Filed: 10/07/17 03:39> - General Chief Complaint: Shortness Of Breath Stated Complaint: SHORTNESS OF BREATH Time Seen by Provider: 10/06/17 22:06 Notes: Patient is a 77 year old female with COPD and asthma presents to the emergency department complaining of multiple symptoms including shortness of breath, chest tightness and a productive cough with yellow sputum onset several days ago. Patient states her current symptoms are similar to her previous COPD flare ups. She states she has significantly increased the usage of her inhaler and has used Albuterol and DuoNeb's the last couple of days. Patient states she has felt warm and diaphoretic during the night. She denies any nausea or vomiting. Patient states she has previously had magnesium in the past which dramatically helped her symptoms. (JEANE ROWELL) - Related Data Allergies/Adverse Reactions: cephalexin [From Keflex] Allergy (Verified 07/24/17 08:03) morphine Allergy (Verified 07/24/17 08:03) sulfamethoxazole [From Bactrim] Allergy (Verified 07/24/17 08:03) trimethoprim [From Bactrim] Allergy (Verified 07/24/17 08:03) Past Medical History - General Information source: Patient - Social History Smoking Status: Former Smoker - quit 2 years ago Chew tobacco use (# tins/day): No Frequency of alcohol use: Rare Drug Abuse: None Family History: CAD, DM, Hyperlipidemia, Hypertension, Malignancy - SKIN Patient has suicidal ideation: No Patient has homicidal ideation: No - Past Medical History Cardiac Medical History: Reports: Hx Hypercholesterolemia, Hx Hypertension Pulmonary Medical History: Reports: Hx Asthma - allergy induced, Hx COPD, Hx Sleep Apnea Endocrine Medical History: Reports: Hx Diabetes Mellitus Type 2, Hx Hyperthyroidism Malignancy Medical History: Reports: Hx Skin Cancer GI Medical History: Reports: Hx Gastroesophageal Reflux Disease Psychiatric Medical History: Reports: Hx Bipolar Disorder Past Surgical History: Reports: Hx Appendectomy, Hx Hysterectomy, Other - orif l WRIST <JEANE ROWELL - Last Filed: 10/07/17 03:32> Review of Systems - Review of Systems Constitutional: No symptoms reported EENT: No symptoms reported Cardiovascular: See HPI, Chest pain - Chest tightness Respiratory: See HPI, Cough, Short of breath, Sputum Gastrointestinal: No symptoms reported Genitourinary: No symptoms reported Female Genitourinary: No symptoms reported Musculoskeletal: No symptoms reported Skin: No symptoms reported Hematologic/Lymphatic: No symptoms reported Neurological/Psychological: No symptoms reported -: Yes All other systems reviewed and negative <JEANE ROWELL - Last Filed: 10/07/17 03:32> Physical Exam <JEANE ROWELL - Last Filed: 10/07/17 03:32> <VA TAY - Last Filed: 10/07/17 03:39> - Vital signs Vitals: Temp Pulse Resp BP Pulse Ox 98.3 F 92 16 155/74 H 96 10/06/17 22:00 10/06/17 22:00 10/06/17 22:00 10/06/17 22:00 10/06/17 22:00 - Notes Notes: GENERAL: Alert, interacts well. Appears uncomfortable. HEAD: Normocephalic, atraumatic. EYES: Pupils equal, round, and reactive to light. Extraocular movements intact. ENT: Oral mucosa moist, tongue midline. NECK: Full range of motion. Supple. Trachea midline. LUNGS: Decreased air movement. Rhonchi in RLL. Trace expiratory wheezing, more pronounced anteriorly. Tachypneic, tripoding. HEART: Regular rate and rhythm. No murmurs, gallops, or rubs. ABDOMEN: Soft, non-tender. Non-distended. Bowel sounds present in all 4 quadrants. EXTREMITIES: Moves all 4 extremities spontaneously. No edema, radial and dorsalis pedis pulses 2/4 bilaterally. No cyanosis. NEUROLOGICAL: Alert and oriented x3. Normal speech. PSYCH: Anxious SKIN: Warm, dry, normal turgor. No rashes or lesions noted. (JEANE ROWELL) Course - Laboratory Result Diagrams: 10/06/17 22:40 10/06/17 22:40 <JEANE ROWELL - Last Filed: 10/07/17 03:32> - Laboratory Result Diagrams: 10/06/17 22:40 10/06/17 22:40 <VA TAY - Last Filed: 10/07/17 03:39> - Re-evaluation Re-evalutation: 10/07/17 03:01 CBC shows mild leukocytosis 11.6, CMP grossly unremarkable, chest x-ray shows no acute process. EKG is nonischemic. On initial history this patient did not tell me that she was taking steroids on a regular basis however on further review patient states that she has been taking 20 mg of steroid for several weeks now as a baseline steroid and on Thursday she increased her baseline prednisone to 40 mg a day. Patient has been rechecked multiple times while she has been here, does have some improved air movement, after the second bag of magnesium the patient had increased wheezing which was encouraging as she was moving more air, after yet another breathing treatment the patient's wheezing has cleared although she does still appear short of breath. I have discussed with the patient multiple times over the past several hours that I would like her to be admitted for an acute COPD exacerbation and she is adamant that she would like to be discharged to home. Discussed with patient that I would like her seen by her primary care physician or her gis physical scientist within the next 12 hours. Her daughter will be staying with her this evening, they are aware of the risks of going home and needing to return for admission anyway. She will continue to use her inhaler or nebulized breathing treatment up to every 2 hours. She has problems to return should she need it every hour. Patient will be discharged to home. Wait -and-see prescription for antibiotics will be given, at present she only has increased sputum production but does not have increased oxygen requirement or fevers. Patient will not start the Augmentin unless she worsens in the next 2 days. Patient's prednisone will be increased to 60 mg a day for the next 5 days. (VA TAY) - Vital Signs Vital signs: Temp Pulse Resp BP Pulse Ox 98.4 F 107 H 19 125/60 92 10/07/17 03:17 10/07/17 03:17 10/07/17 03:17 10/07/17 03:17 10/07/17 03:17 - Laboratory Laboratory results interpreted by me: 10/06/17 10/06/17 22:40 22:40 WBC 11.6 H Seg Neutrophils % 80.7 H Lymphocytes % 10.8 L Absolute Neutrophils 9.4 H AST 40 H - EKG Interpretation by Me Additional EKG results interpreted by me: 10/07/17 03:04 EKG shows sinus rhythm at a rate of 92, normal axis, normal intervals, no ST segment elevations or depressions, isolated T-wave inversions in lead III per my interpretation. (VA TAY) Discharge <JEANE ROWELL - Last Filed: 10/07/17 03:32> <VA TAY - Last Filed: 10/07/17 03:39> - Discharge Clinical Impression: Acute exacerbation of chronic obstructive pulmonary disease (COPD) Condition: Stable Disposition: HOME, SELF-CARE Additional Instructions: I have discussed with the multiple times that I feel you should be admitted this evening however you would like to be discharged home. You are being discharged home on the condition that we increase your prednisone to 60 mg a day for the next 5 days, that you see either your gis physical scientist or your primary care physician later today (10/07) and that you return should you need to use your breathing treatments more often than every 2 hours over the next 24 hours. You should also return for any new or concerning symptoms. I have given you a prescription for Augmentin. Please do not start the Augmentin unless you develop a fever or are getting worse. Prescriptions: Amoxicillin/Potassium Clav [Amox-Clav 875-125 mg Tablet] 1 each PO BID #14 tablet Prednisone [Deltasone 20 mg Tablet] 3 tab PO DAILY 5 Days tablet Referrals: MARIANGEL BROWN DO [Primary Care Provider] - 10/07/17 Scribe Attestation: 10/07/17 03:39 I personally performed the services described in the documentation, reviewed and edited the documentation which was dictated to the scribe in my presence, and it accurately records my words and actions. (VA TAY) Scribe Documentation - Scribe Written by Ana:: Ana Barron, 10/06/2017 23:14 acting as scribe for :: Sergio <JEANE ROWELL - Last Filed: 10/07/17 03:32>
[2017-10-06 22:59] LABS: ABSOLUTE BASOPHILS # (AUTO) 0.1 10^3/uL (0.0-0.2); ABSOLUTE LYMPHOCYTES (AUTO) 1.3 10^3/uL (0.5-4.7); ABSOLUTE MONOCYTES (AUTO) 0.9 10^3/uL (0.1-1.4); ABSOLUTE NEUT (AUTO) 9.4 10^3/uL (1.7-8.2); BASOPHILS % (AUTO) 0.7 % (0-2); EOSINOPHILS % (AUTO) 0.4 % (0-6); HEMATOCRIT 42.3 % (36.0-47.0); HEMOGLOBIN 14.4 g/dL (12.0-15.5); LYMPHOCYTES % (AUTO) 10.8 % (13-45); MEAN CORPUSCULAR HEMOGLOBIN 30.8 pg (27.0-33.4); MEAN CORPUSCULAR VOLUME 91 fl (80-97); MONOCYTES % (AUTO) 7.4 % (3-13); PLATELET COUNT 213 10^3/uL (150-450); RED BLOOD COUNT 4.67 10^6/uL (3.72-5.28); SEGMENTED NEUTROPHILS % (AUTO) 80.7 % (42-78); TOTAL CELLS COUNTED % (AUTO) 100 %; WHITE BLOOD COUNT 11.6 10^3/uL (4.0-10.5)
--- NOTE | 2017-10-06 23:21 | RADIOLOGY REPORT (SQ) ---
Chest 2 view on 10/06/2017 at 11:14 PM CLINICAL INDICATION: Shortness of breath COMPARISON: 07/19/2017 FINDINGS: There is evidence of calcified granulomatous disease in the chest. Mild chronic interstitial changes are noted. Mild vascular calcification is noted in the aorta. The lungs are otherwise clear. Cardiac, hilar and mediastinal contours are within normal limits. Pulmonary vascularity is within normal limits. IMPRESSION: No acute disease.
[2017-10-06 23:40] LABS: ALANINE AMINOTRANSFERASE 33 U/L (9-52); ALBUMIN 4.2 g/dL (3.5-5.0); ALKALINE PHOSPHATASE 75 U/L (38-126); ANION GAP 7 (5-19); ASPARTATE AMINO TRANSFERASE 40 U/L (14-36); BILIRUBIN,DIRECT 0.2 mg/dL (0.0-0.4); BILIRUBIN,TOTAL 0.7 mg/dL (0.2-1.3); BLOOD UREA NITROGEN 14 mg/dL (7-20); CALCIUM 9.2 mg/dL (8.4-10.2); CARBON DIOXIDE 30 mmol/L (22-30); CHLORIDE 101 mmol/L (98-107); GLUCOSE 89 mg/dL (75-110); POTASSIUM 3.7 mmol/L (3.6-5.0); SODIUM 137.7 mmol/L (137-145); TOTAL PROTEIN 7.2 g/dL (6.3-8.2)
[2017-10-07] MEDS ORDERED: METHYLPREDNISOLONE INJ 125 MG/2 ML SDV IV ONE (00:02)
--- NOTE | 2017-10-07 00:22 | EKG REPORT ---
SEVERITY:- NORMAL ECG - SINUS RHYTHM : Confirmed by: Kristin Vega MD 07-Oct-2017 00:21:41
[2017-10-07] MEDS ORDERED: MAGNESIUM SULFATE/D5W 1 GM/100 ML RTUPB IV ONE (00:37)
[2017-10-07] MEDS ORDERED: ALBUTEROL SULFATE 0.083% NEB 2.5 MG/3 ML AMPUL NEB ONE (02:13)
[2017-10-07] MEDS ORDERED: PREDNISONE 20 MG TABLET PO ONE (03:00)
[2017-10-07 03:18] VITALS: BP 125/60
== END 2017-10-07 03:18 | disposition home or self-care (01) ==
LOC: ER 21:52
DX: J44.1 Chronic obstructive pulmonary disease with (acute) exacerbation (principal); R06.02 Shortness of breath; E78.00 Pure hypercholesterolemia, unspecified; I10 Essential (primary) hypertension; Z88.6 Allergy status to analgesic agent; Z88.2 Allergy status to sulfonamides; Z90.710 Acquired absence of both cervix and uterus
CPT/HCPCS: 93005; 94640 ×2; 99285; 96375; 96365; 96366; 36415; 85025; 80053; 71046; 93010; J2930; J3475 ×2; A9270 ×4; J7512; J7620

== ENCOUNTER → 2017-11-23 | Outpatient (CLI) | payer MEDICARE, MEDICAID ==
--- NOTE | 2017-11-23 09:24 | WOMENS IMAGING REPORT ---
EXAM DESCRIPTION: U/S ABDOMEN LIMITED COMPLETED DATE/TIME: 11/23/2017 9:16 am REASON FOR STUDY: RIGHT UPPER QUADRANT PAIN R10.11 RIGHT UPPER QUADRANT PAIN COMPARISON: None. TECHNIQUE: Dynamic and static grayscale images acquired of the right upper quadrant and recorded on PACS. Additional selected color Doppler and spectral images recorded. LIMITATIONS: Study limited due to acoustical interference from fat or from air in the bowel. FINDINGS: PANCREAS: Normal. LIVER: Echotexture is coarse with increased echogenicity consistent with fatty infiltration. No mass es. LIVER VASCULATURE: Normal directional flow of the main portal vein and hepatic veins. GALLBLADDER: Gallstone(s). No pericholecystic fluid. No wall thickening. ULTRASOUND-DETECTED WHITE'S SIGN: Negative. INTRAHEPATIC DUCTS AND COMMON DUCT: CBD and intrahepatic ducts normal caliber. No filling defects. INFERIOR VENA CAVA: Obscured. AORTA: Obscured. RIGHT KIDNEY: Normal size. Cortical thinning. 2 cm cyst. No solid or suspicious masses. No hy dronephrosis. No calcifications. PERITONEAL CAVITY AND RIGHT PLEURAL SPACE: No ascites or effusions. OTHER: No other significant finding. IMPRESSION: Cholelithiasis. No evidence of acute cholecystitis. TECHNICAL DOCUMENTATION: JOB ID: [id number] [employer]- All Rights Reserved Reading location - IP/workstation name: [email or web address]
== END ==
LOC: WI 08:00
PROVIDERS: ATTEND Family Medicine
DX: R10.11 Right upper quadrant pain (principal)
CPT/HCPCS: 76705

== ENCOUNTER → 2018-01-02 | Outpatient (CLI) | payer MEDICARE, MEDICAID ==
--- NOTE | 2018-01-02 10:16 | RADIOLOGY REPORT (SQ) ---
EXAM DESCRIPTION: CT CHEST WITHOUT COMPLETED DATE/TIME: 01/02/2018 9:13 am REASON FOR STUDY: MEDIASTINAL LYMPHADENOPATHY R59.0 LOCALIZED ENLARGED LYMPH NODES COMPARISON: CT chest 06/28/2017 Chest films 07/26/2017, 10/06/2017 TECHNIQUE: CT scan performed of the chest without intravenous contrast. Images reviewed with lung, soft tissue and bone windows. Reconstructed coronal and sagittal MPR images reviewed. All images st ored on PACS. All CT scanners at this facility use dose modulation, iterative reconstruction, and/or weight based d osing when appropriate to reduce radiation dose to as low as reasonably achievable (ALARA). [facility]: Dose Right [facility]: CareDose [facility]: Dose Right [facility]: Teradose 4D [facility]: [employer] RADIATION DOSE: CT Rad equipment meets quality standard of care and radiation dose reduction techniq ues were employed. CTDIvol: 19.2 mGy. DLP: 698 mGy-cm. mGy. LIMITATIONS: No technical limitations. FINDINGS: LUNGS AND PLEURA: Enlarged airspaces from centrilobular emphysema in the bilateral upper l obes. Stable calcified nodule right lower lobe 2 cm in diameter, unchanged. This is a benign postinflammat ory finding. No acute infiltrates. No pleural effusion. No pneumothorax. HILAR AND MEDIASTINAL STRUCTURES: Calcified right hilar and left hilar lymph nodes from old granuloma tous disease. No pathologically enlarged upper abdominal, mediastinal, hilar, or supraclavicular lym ph nodes are identified. HEART AND VASCULAR STRUCTURES: No thoracic aortic aneurysm. Calcified aortic valve. Minimal coronar y artery calcifications. UPPER ABDOMEN: Calcified splenic granulomas THYROID AND OTHER SOFT TISSUES: No masses. No adenopathy. BONES: Chronic upper endplate L1 25% compression deformity. HARDWARE: None in the chest. OTHER: No other significant findings. IMPRESSION: Obstructive lung disease. Old granulomatous disease. No significant adenopathy. TECHNICAL DOCUMENTATION: JOB ID: [id number] Quality ID # [id number]: Final reports with documentation of one or more dose reduction techniques (e.g., Au tomated exposure control, adjustment of the mA and/or kV according to patient size, use of iterative reconstruction technique) 2010 [employer]- All Rights Reserved Reading location - IP/workstation name: [email or web address]
== END ==
LOC: RAD 08:48
PROVIDERS: ATTEND Physician Assistant
DX: R59.0 Localized enlarged lymph nodes (principal)
CPT/HCPCS: 71250

== ENCOUNTER 2018-01-18 07:21 | Day surgery (SDC) | payer MEDICARE, MEDICAID ==
[~2018-01-18 07:21] MED LIST: KETOROLAC TROMETHAMINE 0.45% 4 DROP/0.4 ML DROPERETTE OS PRN
[2018-01-18] MEDS ORDERED: MIDAZOLAM 2 MG/2 ML INJ ONE (07:24)
[2018-01-18] MEDS ORDERED: EPINEPHRINE INJ/PF 1 MG/1 ML AMPULE ONE (07:26)
[2018-01-18] MEDS ORDERED: CHONDR SU A NA/HYALUR INTRAOC KIT (SURGICARE) ONE (07:26)
[2018-01-18] MEDS ORDERED: LIDOCAINE 1%/PHENYLEPHRINE 1.5% 1 ML VIAL ONE (07:27)
[2018-01-18] MEDS: TROPICAMIDE 1% OPH SOLN 3 ML OS PRN ×3 (07:49→08:10)
[2018-01-18] MEDS: BESIFLOXACIN HCL 0.6% OPH SUSP 5 ML BOTTLE OS PRN ×3 (07:49→07:59)
[2018-01-18] MEDS: TETRACAINE HCL 0.5% OPH SOLN 4 ML OS PRN ×3 (07:49→08:13)
[2018-01-18] MEDS: CYCLOPENTOLATE 0.2%/PHENYLEPHRINE 1% OPH SOLN 2 ML OS PRN ×3 (07:49→08:10)
--- NOTE | 2018-01-19 09:25 | [facility] DISCHARGE SUMMARY E ---
[facility] Discharge Summary NAME: DOE FUNG AGE: 77Y ADMITTED: 01/18/2018 DISCHARGED: 01/18/2018 DIAGNOSIS: CATARACT, LEFT EYE. SUMMARY: This is a 77-year-old female who underwent cataract extraction of the left eye. She underwent surgery because she was having glare from lights at night. She had difficulty seeing words on the television as well. DISCHARGE INSTRUCTIONS: She should be on a regular diet, no bending at her waist, and no heavy lifting. She should use her Besivance, Ilevro, and Durezol at 3 p.m. and 8 p.m. and sleep with a rigid shield. I will see her for her 1-day postoperative tomorrow. DICTATING PHYSICIAN: SLOAN BURRELL M.D. [id number] PHY#: [id number] ID: [id number] JOB#: [id number] ACCT: [id number] cc:SLOAN BURRELL M.D. >
--- NOTE | 2018-01-19 09:25 | [facility] OPERATIVE REPORT E ---
[facility] Operative Report NAME: DOE FUNG AGE: 77Y DATE OF SURGERY: 01/18/2018 ROOM: PREOPERATIVE DIAGNOSIS: CATARACT, LEFT EYE. POSTOPERATIVE DIAGNOSIS: CATARACT, LEFT EYE. OPERATION: Cataract extraction with insertion of an IOL of the left eye. SURGEON: SLOAN BURRELL M.D. ANESTHESIA: Topical. PROCEDURE: After obtaining appropriate consent, the patient's left eye was prepped and draped in sterile fashion as well as the surgeon in a sterile manner and cataract surgery was started. First a paracentesis blade was used to make a side-port incision. Viscoelastic was used to inflate the anterior chamber. Next a 2.4 mm incision was made with a 2.4 mm blade, clear corneal temporally. A continuous capsulorrhexis was made using a cystotome and Utrata forceps. Following this hydrodissection was carried out to make the lens fully loose and mobile and it was rotated 90 degrees. Following this, a imznbb-guh-xzqhish technique was used to phacoemulsify the lens with a CDE of 8.80. The remaining cortex was removed with irrigation/aspiration. Provisc was instilled into the capsular bag to inflate the bag. A SN60WF, 20.0 diopter lens was placed. The remaining viscoelastic material was removed with irrigation/aspiration. Following this, the incision was found to be watertight. Besivance was instilled into the eye and a protective shield was placed over the eye. The patient returned to the postoperative recovery in stable condition. DICTATING PHYSICIAN: SLOAN BURRELL M.D. [id number] PHY#: [id number] ID: [id number] JOB#: [id number] ACCT: [id number] cc:SLOAN BURRELL M.D. >
== END 2018-01-18 09:15 | disposition home or self-care (01) ==
LOC: SC 07:21
PROVIDERS: ATTEND Internal Medicine
DX: H25.812 Combined forms of age-related cataract, left eye (principal); J44.9 Chronic obstructive pulmonary disease, unspecified; I10 Essential (primary) hypertension; K21.9 Gastro-esophageal reflux disease without esophagitis; I34.1 Nonrheumatic mitral (valve) prolapse; G47.30 Sleep apnea, unspecified; I49.9 Cardiac arrhythmia, unspecified; E66.9 Obesity, unspecified; Z79.899 Other long term (current) drug therapy; Z68.38 Body mass index [BMI] 38.0-38.9, adult; Z87.891 Personal history of nicotine dependence; Z88.5 Allergy status to narcotic agent; Z79.51 Long term (current) use of inhaled steroids
CPT/HCPCS: 66984; V2632; J2250; J3490 ×2; A9270; J0171; J2370; 142

== ENCOUNTER 2018-02-01 00:05 | Observation (INO) | payer MEDICARE, MEDICAID ==
--- NOTE | 2018-02-01 00:42 | EKG REPORT ---
SEVERITY:- OTHERWISE NORMAL ECG - SINUS TACHYCARDIA : Confirmed by: Rufina Mendez 01-Feb-2018 00:41:47
[2018-02-01 01:25] LABS: ABSOLUTE BASOPHILS # (AUTO) 0.1 10^3/uL (0.0-0.2); ABSOLUTE LYMPHOCYTES (AUTO) 1.2 10^3/uL (0.5-4.7); ABSOLUTE MONOCYTES (AUTO) 0.7 10^3/uL (0.1-1.4); ABSOLUTE NEUT (AUTO) 11.7 10^3/uL (1.7-8.2); BASOPHILS % (AUTO) 0.5 % (0-2); EOSINOPHILS % (AUTO) 0.1 % (0-6); HEMATOCRIT 40.3 % (36.0-47.0); HEMOGLOBIN 13.8 g/dL (12.0-15.5); LYMPHOCYTES % (AUTO) 8.5 % (13-45); MEAN CORPUSCULAR HEMOGLOBIN 31.4 pg (27.0-33.4); MEAN CORPUSCULAR HGB CONC 34.2 g/dL (32.0-36.0); MEAN CORPUSCULAR VOLUME 92 fl (80-97); MONOCYTES % (AUTO) 5.2 % (3-13); PLATELET COUNT 251 10^3/uL (150-450); RED BLOOD COUNT 4.39 10^6/uL (3.72-5.28); RED CELL DISTRIBUTION WIDTH 13.2 % (11.5-14.0); SEGMENTED NEUTROPHILS % (AUTO) 85.7 % (42-78); TOTAL CELLS COUNTED % (AUTO) 100 %; WHITE BLOOD COUNT 13.6 10^3/uL (4.0-10.5)
[2018-02-01 01:39] LABS: ANION GAP 12 (5-19); BLOOD UREA NITROGEN 29 mg/dL (7-20); CALCIUM 9.5 mg/dL (8.4-10.2); CARBON DIOXIDE 23 mmol/L (22-30); CHLORIDE 102 mmol/L (98-107); GLUCOSE 150 mg/dL (75-110); POTASSIUM 4.5 mmol/L (3.6-5.0); SODIUM 137.4 mmol/L (137-145)
--- NOTE | 2018-02-01 01:55 | RADIOLOGY REPORT (SQ) ---
EXAM DESCRIPTION: XR CHEST 1 VIEW COMPLETED DATE/TME: 02/01/2018 00:40 CLINICAL HISTORY: 77 years, Female, sob COMPARISON: 10/06/2017 chest x-ray NUMBER OF VIEWS: 1 TECHNIQUE: Frontal view the chest LIMITATIONS: None. FINDINGS: Heart size is normal. Atheromatous change thoracic aorta. Calcified granuloma right lung base. Scarring left lung base. No pneumothorax. Osteopenia IMPRESSION: No acute cardiopulmonary process 2010 [employer]- All Rights Reserved
[2018-02-01] MEDS ORDERED: METOCLOPRAMIDE HCL INJ/PF 10 MG/2 ML SDV IV PRN (02:57)
[2018-02-01] MEDS ORDERED: PROMETHAZINE HCL 25 MG TABLET PO PRN (02:57)
[2018-02-01] MEDS ORDERED: TEMAZEPAM 15 MG CAPSULE PO PRN (02:57)
[2018-02-01] MEDS ORDERED: ACETAMINOPHEN 325 MG TABLET PO PRN (02:57)
[2018-02-01] MEDS ORDERED: NITROGLYCERIN 0.4 MG/TAB 25 TAB/BOTTLE SL PRN (03:00)
[2018-02-01] MEDS ORDERED: KETOROLAC TROMETHAMINE INJ/PF 30 MG/1 ML SDV IV PRN (03:01)
--- NOTE | 2018-02-01 03:16 | ER Document Report ---
ED General - General Chief Complaint: Chest Pain Stated Complaint: CHEST PAIN Time Seen by Provider: 02/01/18 00:40 Notes: Patient is a 77-year-old female with a past medical history of hypertension, prior tobacco abuse, COPD, obesity, chronic steroid use who presents with an episode of chest pain that has now resolved. The patient states that approximately 2330 she developed a heaviness and pressure sensation beneath her left breast. She states this lasted for approximately 15 minutes and then did resolve. She took aspirin and believes that this did help her symptoms. No obvious trigger. She states she was sitting reading books when it started. She denies a history of similar symptoms in the past. States she had some mild associated nausea but no shortness of breath or diaphoresis. She has been seeing her health therapist as an outpatient as she has been noted to have increasing shortness of breath on exertion over the last 2 months. She is scheduled for a stress test in February due to concerns that this could be cardiac in origin. Her last stress test was 1 year ago and was noted to be normal. She has never required a cardiac catheterization. TRAVEL OUTSIDE OF THE [place] IN LAST 30 DAYS: No - Related Data Allergies/Adverse Reactions: cephalexin [From Keflex] Allergy (Verified 07/24/17 08:03) morphine Allergy (Verified 07/24/17 08:03) sulfamethoxazole [From Bactrim] Allergy (Verified 07/24/17 08:03) trimethoprim [From Bactrim] Allergy (Verified 07/24/17 08:03) Past Medical History - General Information source: Patient - Social History Smoking Status: Former Smoker Frequency of alcohol use: Occasional Drug Abuse: None Lives with: Family Family History: CAD, DM, Hyperlipidemia, Hypertension, Malignancy - SKIN Patient has suicidal ideation: No Patient has homicidal ideation: No - Past Medical History Cardiac Medical History: Reports: Hx Hypercholesterolemia, Hx Hypertension Denies: Hx Heart Attack Pulmonary Medical History: Reports: Hx Asthma, Hx COPD, Hx Sleep Apnea Neurological Medical History: Denies: Hx Cerebrovascular Accident, Hx Seizures Endocrine Medical History: Reports: Hx Diabetes Mellitus Type 2, Hx Hyperthyroidism. Denies: Hx Diabetes Mellitus Type 1, Hx Hypothyroidism Renal/ Medical History: Denies: Hx End Stage Renal Disease, Hx Peritoneal Dialysis Malignancy Medical History: Reports: Hx Skin Cancer GI Medical History: Reports: Hx Gastroesophageal Reflux Disease, Hx Ulcer - 1970. Denies: Hx Cirrhosis, Hx Hepatitis, Hx Hiatal Hernia Musculoskeletal Medical History: Denies Hx Arthritis, Denies Hx Gout Skin Medical History: Denies Hx Psoriasis Psychiatric Medical History: Reports: Hx Bipolar Disorder Infectious Medical History: Denies: Hx C-Diff, Hx Hepatitis Past Surgical History: Reports: Hx Appendectomy, Hx Hysterectomy, Other - orif l WRIST. Denies: Hx Mastectomy, Hx Open Heart Surgery, Hx Pacemaker Review of Systems - Review of Systems Notes: Constitutional: Negative for fever. HENT: Negative for sore throat. Eyes: Negative for visual changes. Cardiovascular: Positive for chest pain now resolved Respiratory: Negative for shortness of breath. Gastrointestinal: Negative for abdominal pain, vomiting or diarrhea. Genitourinary: Negative for dysuria. Musculoskeletal: Negative for back pain. Skin: Negative for rash. Neurological: Negative for headaches, weakness or numbness. 10 point ROS negative except as marked above and in HPI. Physical Exam - Vital signs Vitals: Temp Pulse Resp BP Pulse Ox 98.6 F 105 H 20 176/82 H 96 02/01/18 00:34 02/01/18 00:34 02/01/18 00:34 02/01/18 00:34 02/01/18 00:34 Notes: PHYSICAL EXAMINATION: GENERAL: Well-appearing, well-nourished and in no acute distress. HEAD: Atraumatic, normocephalic. EYES: Pupils equal round and reactive to light, extraocular movements intact, sclera anicteric, conjunctiva are normal. ENT: nares patent, oropharynx clear without exudates. Moist mucous membranes. NECK: Normal range of motion, supple without lymphadenopathy LUNGS: Breath sounds clear to auscultation bilaterally and equal. No wheezes rales or rhonchi. HEART: Regular rate and rhythm without murmurs ABDOMEN: Soft, nontender, normoactive bowel sounds. No guarding, no rebound. No masses appreciated. EXTREMITIES: Normal range of motion, no pitting or edema. No cyanosis. NEUROLOGICAL: No focal neurological deficits. Moves all extremities spontaneously and on command. PSYCH: Normal mood, normal affect. SKIN: Warm, Dry, normal turgor, no rashes or lesions noted. Course - Re-evaluation Re-evalutation: 02/01/18 03:10 Presentation of chest pain in an otherwise well appearing patient. EKG unremarkable, initial troponin is normal however the patient's advanced age and multiple risk factors does place her in a moderate risk category. Heart score is 4. PE also seems unlikely given clinical history, absence of dyspnea. CXR without evidence of pneumothorax or pneumonia. No widened mediastinum. Aortic dissection also seems unlikely given history, symmetric pulses, CXR, and vitals. Given the patient's multiple risk factors and history I have offered the patient admission. She has accepted and Dr. Davis has agreed to admit the patient for observation - Vital Signs Vital signs: Temp Pulse Resp BP Pulse Ox 98.6 F 105 H 18 120/59 L 95 02/01/18 00:34 02/01/18 00:34 02/01/18 01:31 02/01/18 01:31 02/01/18 01:31 - Laboratory Result Diagrams: 02/01/18 01:13 02/01/18 01:13 Laboratory results interpreted by me: 02/01/18 02/01/18 01:13 01:13 WBC 13.6 H Seg Neutrophils % 85.7 H Lymphocytes % 8.5 L Absolute Neutrophils 11.7 H BUN 29 H Glucose 150 H - Diagnostic Test Radiology reviewed: Image reviewed, Reports reviewed Radiology results interpreted by me: 02/01/18 03:13 Chest x-ray: No acute infiltrate pneumothorax - EKG Interpretation by Me Additional EKG results interpreted by me: 02/01/18 03:13 Sinus tachycarida, rate 104, no ST changes. Qtc 457 Discharge - Discharge Clinical Impression: Chest pain Qualifiers: Chest pain type: unspecified Qualified Code(s): R07.9 - Chest pain, unspecified Condition: Fair Disposition: ADMITTED OBSERVATION Admitting Provider: Hospitalist Unit Admitted: Telemetry Referrals: MARIANGEL BROWN DO [Primary Care Provider] - Follow up as needed
--- NOTE | 2018-02-01 04:52 | PDOC H&P ---
History of Present Illness Admission Date/PCP: 02/01/18 03:24 MARIANGEL BROWN DO Patient complains of: Chest pain History of Present Illness: DOE FUNG is a 77 year old female with medical history of hypertension, ARIEL, bipolar, COPD. Patient comes to the emergency department with chest discomfort. Around 11:30 PM she was reading when suddenly it started with chest discomfort in the center of her chest, she describes this as a squeezing, nonradiating, 5/10 in intensity, no associated with diaphoresis, lightheadedness , nausea, vomiting. She has chronic shortness of breath secondary to her COPD and has been worsening. Denies fever or chills. Patient has chronic dizziness and headaches when she stands up and is being managed by her primary care physician. Decreased exertional tolerance secondary to back problems, complains of mild right foot swelling lately. Patient tells me that she had 2 similar symptoms in the last 3 weeks but nothing like days, with aspirin resolved. Her last stress test was more than a year ago with plans as was a pharmacological one. She called her daughter who brought her to the hospital, the episode lasted approximately 15 minutes and resolve spontaneously. Took an aspirin at home. Tells me she follows with Dr. Mendez and she had an echocardiogram last Thursday and is scheduled for a stress test first week of February. Tells me Dr. Mendez has not been aware of her chest pain symptoms. First set of troponins negative, EKG unremarkable. Chest x-ray with no evidence of pneumothorax or pneumonia. We will keep the patient under observation. Past Medical History Cardiac Medical History: Reports: Hyperlipidema, Hypertension, Other - Mitral valve prolapse Pulmonary Medical History: Reports: Asthma, Chronic Obstructive Pulmonary Disease (COPD), Sleep Apnea Endocrine Medical History: Reports: Hyperthyroidism Renal/ Medical History: Denies: End Stage Renal Disease Malignancy Medical History: Reports: Skin Cancer GI Medical History: Reports: Gastroesophageal Reflux Disease Musculoskeltal Medical History: Reports: Other - Chronic back pain Psychiatric Medical History: Reports: Bipolar Disorder Past Surgical History Past Surgical History: Reports: Appendectomy, 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, Hysterectomy, Other - orif l WRIST Social History Lives with: Family Smoking Status: Former Smoker - Quit 2 years ago used to smoke 1 pack/day Frequency of Alcohol Use: Occasional Hx Recreational Drug Use: No Hx Prescription Drug Abuse: No Past Social History Note: Lives alone Family History Family History: CAD, DM, Hyperlipidemia, Hypertension, Malignancy - SKIN Family History: Mother at 62 years old with history of MA, father at 80 years old of old age Parental Family History Reviewed: Yes Children Family History Reviewed: Yes Sibling(s) Family History Reviewed.: Yes Medication/Allergy Home Medications: Albuterol Sulfate [Ventolin 0.083% Neb 2.5 mg/3 ml Ampul] 1 vial NEB Q4 PRN #25 vial 06/28/17 Albuterol Sulfate [Proair HFA] 2 puff IH Q6 PRN 07/24/17 Lamotrigine [Lamictal] tab PO DAILY PRN 07/24/17 Losartan Potassium 1 tab PO DAILY 07/24/17 Metoprolol Succinate 1 tab PO DAILY 07/24/17 Omeprazole 1 cap PO DAILY 07/24/17 Besifloxacin HCl [Besivance 0.6% Oph Susp 5 ml] 1 drop OP .12PM,3PM,8PM TODAY Bromfenac Sodium [Prolensa] 1 drop OP .12PM,3PM,8PM TODAY 01/12/18 Difluprednate [Durezol] 1 drop OP .12PM,3PM,8PM TODAY 01/12/18 Glycopyrrol/Nebulizer/Accessor [Lonhala Magnair 25 Mcg Starter] 25 mcg IH BID Lurasidone HCl [Latuda 40 mg Tablet] 40 mg PO DAILY 01/12/18 Mepolizumab [Nucala] 100 mg SQ ASDIR PRN 01/12/18 Budesonide/Formoterol Fumarate [Symbicort Hfa 160-4.5 Mcg Inhaler 6 gm] 2 puff IH Q12 02/01/18 Prednisone [Deltasone 20 mg Tablet] 1 tab PO DAILY 02/01/18 Allergies/Adverse Reactions: cephalexin [From Keflex] Allergy (Verified 07/24/17 08:03) morphine Allergy (Verified 07/24/17 08:03) sulfamethoxazole [From Bactrim] Allergy (Verified 07/24/17 08:03) trimethoprim [From Bactrim] Allergy (Verified 07/24/17 08:03) Review of Systems Review of Systems: As outlined above, others negative Physical Exam Vital Signs: Temp Pulse Resp BP Pulse Ox 98.6 F 105 H 18 120/59 L 95 02/01/18 00:34 02/01/18 00:34 02/01/18 01:31 02/01/18 01:31 02/01/18 01:31 Additional comments: General appearance: Well-developed, obese, alert and cooperative, and appears to be in no acute distress Head: Normocephalic Eyes: PEERL, EOMI, vision is grossly intact. Ears: External auditory canal and tympanic membranes clear, hearing grossly intact. Nose: No nasal discharge. Throat: Oral cavity and pharynx normal. No inflammation, swelling, exudate or lesions. Neck: Neck supple, nontender without lymphadenopathy, masses or thyromegaly. Cardiac: Normal S1 and S2. No S3, S4 or murmurs. Rhythm is regular. There is no cyanosis or pallor. Extremities are warm and well perfused. Capillary refill is less than 2 seconds. No carotid bruits. Thorax: No reproducible pain Lungs: Clear to auscultation and percussion without rales, rhonchi, wheezing or diminished breath sounds. Not using accessory muscles. Abdomen: Positive bowel sounds. Soft. Nondistended, nontender. No guarding or rebound. No masses. No hepatosplenomegaly Extremities: No significant deformity or joint abnormality. No edema. Peripheral pulses intact. No varicosities. Neurological: Cranial nerves II through XII grossly intact. Strength and sensation symmetric and intact throughout. Reflexes 2+ throughout. Skin: Skin normal color, texture and turgor with no lesions or eruptions, warm and dry. Hyperalgia in the left heel. Psychiatric: The mental examination revealed the patient was oriented to person , place, and time. The patient was able to demonstrate good judgment on recent , without hallucinations, abnormal affect or abnormal behaviors. Results Laboratory Results: 02/01/18 02/01/18 02/01/18 01:13 01:13 01:13 WBC 13.6 H RBC 4.39 Hgb 13.8 Hct 40.3 MCV 92 MCH 31.4 MCHC 34.2 RDW 13.2 Plt Count 251 Seg Neutrophils % 85.7 H Lymphocytes % 8.5 L Monocytes % 5.2 Eosinophils % 0.1 Basophils % 0.5 Absolute Neutrophils 11.7 H Absolute Lymphocytes 1.2 Absolute Monocytes 0.7 Absolute Eosinophils 0.0 Absolute Basophils 0.1 Sodium 137.4 Potassium 4.5 Chloride 102 Carbon Dioxide 23 Anion Gap 12 BUN 29 H Creatinine 0.77 Est GFR ( Amer) > 60 Est GFR (Non-Af Amer) > 60 Glucose 150 H Calcium 9.5 Troponin I 0.014 EKG Comments: Normal sinus rhythm, ventricular rate 103 bpm, no acute ST elevation, ST depression or T wave inversions. Impressions: Chest X-Ray 02/01/18 00:40 IMPRESSION: No acute cardiopulmonary process 2010 [employer]- All Rights Reserved Assessment & Plan - Diagnosis (1) Chest pain Qualifiers: Chest pain type: unspecified Qualified Code(s): R07.9 - Chest pain, unspecified Is this a current diagnosis for this admission?: Yes Plan: Patient comes with chest pain, concerns for CAD history of coronary disease. We will keep the patient under telemetry monitoring, complete 3 cardiac enzymes , will do Cardiolite stress test, patient declined to have the pharmacological even though she walks with a walker at home. Nitroglycerin sublingual and Toradol as needed for chest pain as she has allergies to morphine. (2) Hypertension Qualifiers: Hypertension type: essential hypertension Qualified Code(s): I10 - Essential (primary) hypertension Is this a current diagnosis for this admission?: Yes Plan: Was 200s over 100s, and sometimes she is having chest discomfort when her blood pressure increased and that has been going on when she has the chest discomfort. , When she arrived to the emergency department her blood pressure was normal 120 over 60s. Will resume her home antihypertensive medications. (3) COPD (chronic obstructive pulmonary disease) Is this a current diagnosis for this admission?: Yes Plan: Patient does not complain of acute respiratory symptoms, she is not oxygen dependent, resume home bronchodilators. (4) DVT (deep venous thrombosis) Is this a current diagnosis for this admission?: Yes Plan: Lovenox
[2018-02-01] MEDS ORDERED: LAMOTRIGINE 100 MG TABLET PO PRN ×2 (08:07→13:30)
[2018-02-01] MEDS ORDERED: BESIFLOXACIN HCL 0.6% OPH SUSP 5 ML BOTTLE OP SCH (08:15)
[2018-02-01] MEDS ORDERED: (PENDING PHARMACY ID) (Difluprednate [Durezol] 1 DROP) OP SCH (08:15)
[2018-02-01] MEDS ORDERED: (PENDING PHARMACY ID) (Bromfenac Sodium [Prolensa] 1 DROP) OP SCH (08:15)
[2018-02-01 08:39] LABS: ALANINE AMINOTRANSFERASE 31 U/L (9-52); ALBUMIN 3.5 g/dL (3.5-5.0); ALKALINE PHOSPHATASE 50 U/L (38-126); ANION GAP 8 (5-19); ASPARTATE AMINO TRANSFERASE 26 U/L (14-36); BILIRUBIN,DIRECT 0.2 mg/dL (0.0-0.4); BILIRUBIN,TOTAL 0.7 mg/dL (0.2-1.3); BLOOD UREA NITROGEN 27 mg/dL (7-20); CALCIUM 9.6 mg/dL (8.4-10.2); CARBON DIOXIDE 31 mmol/L (22-30); CHLORIDE 100 mmol/L (98-107); GLUCOSE 115 mg/dL (75-110); POTASSIUM 4.2 mmol/L (3.6-5.0); SODIUM 139.4 mmol/L (137-145); TOTAL PROTEIN 5.9 g/dL (6.3-8.2)
[2018-02-01 08:53] LABS: FREE T3 3.31 pg/mL (2.77-5.27)
[2018-02-01] MEDS: ENOXAPARIN SODIUM INJ 40 MG/0.4 ML DISP.SYRIN SUBCUT SCH (11:19)
[2018-02-01] MEDS: ALBUTEROL SULFATE 0.083% NEB 2.5 MG/3 ML AMPUL NEB SCH ×2 (12:07→15:49)
[2018-02-01] MEDS: LOSARTAN POTASSIUM 50 MG TABLET PO SCH (13:11)
[2018-02-01] MEDS: PREDNISONE 10 MG TABLET PO SCH ×2 (13:12→22:59)
[2018-02-01] MEDS: BUDESONIDE/FORMOTEROL 160-4.5 MCG 60 PUFF/6 GM MDI IH SCH ×2 (13:12→23:02)
[2018-02-01] MEDS ORDERED: ALBUTEROL SULFATE 0.083% NEB 2.5 MG/3 ML AMPUL NEB PRN (16:47)
--- NOTE | 2018-02-01 17:05 | PDOC PROGRESS REPORT ---
Subjective Progress Note for:: 02/01/18 Subjective:: DOE FUNG is a 77 year old female who presented to the emergency room with chest pain. She admits sudden onset of chest pain last evening and describes a tight squeezing sensation in the center of the chest without radiation reaching moderate intensity and not being accompanied by any associated symptoms. The pain lasted for approximately 15 minutes and resolved spontaneously. She took an aspirin at home and by that time her daughter whom she had called arrived and brought her to the emergency room. She admits to prior similar but less intense and shorter episodes both occurring within the last month. In the emergency room she was found to have a negative EKG and serial troponin evaluation as well as a unremarkable chest x-ray. She was admitted for observation status to have serial cardiac evaluations and a cardiac consultation with Dr. Mendez with a possible exercise stress test utilizing Cardiolite radio nuclear imaging. 02/01/2018: Doe has done reasonably well today with no recurrence of her chest pain however she continues to be quite short of breath and indicates that she did have a recent echocardiogram with Dr. Mendez but she is not sure of the results. She has been treated for congestive heart failure for the last 7 years but feels like she is gotten substantially worse over the last 6-12 months. With this in mind I will be increasing her metoprolol to 200 mg p.o. nightly daily and continue her losartan 50 mg. It is anticipated that she will undergo her exercise tolerance test tomorrow with her [employer] with test. She does not want to have a chemical stress test as she had an adverse experience with this in the past. Reason For Visit: CHEST PAIN Physical Exam Vital Signs: Temp Pulse Resp BP Pulse Ox 98.4 F 123 H 19 136/56 H 99 02/01/18 16:21 02/01/18 16:21 02/01/18 16:21 02/01/18 16:21 02/01/18 16:21 Intake & Output 01/30/18 01/31/18 02/01/18 23:59 23:59 23:59 Intake Total 353 Output Total 0 Balance 353 Weight 101.2 kg General appearance: PRESENT: no acute distress, cooperative, morbidly obese Head exam: PRESENT: atraumatic, normocephalic Eye exam: PRESENT: conjunctiva pink, EOMI Ear exam: PRESENT: normal external ear exam. ABSENT: bleeding Mouth exam: PRESENT: neck supple, other - Oral mucosa is moist with no gross pathological lesions noted. Neck exam: ABSENT: thyromegaly, tracheal deviation Respiratory exam: PRESENT: decreased breath sounds - Bilateral in the bases, rales - Bibasilar rales are present with some dullness to percussion and decreased breath sounds in the bases., symmetrical, unlabored Cardiovascular exam: PRESENT: gallop - S4 gallop was present, RRR Vascular exam: PRESENT: normal capillary refill. ABSENT: pallor GI/Abdominal exam: PRESENT: normal bowel sounds, soft Rectal exam: PRESENT: deferred Extremities exam: PRESENT: +2 edema - Bilateral pretibial pitting edema. ABSENT : joint swelling, tenderness Musculoskeletal exam: ABSENT: deformity, dislocation Neurological exam: PRESENT: alert, oriented to person, oriented to place, oriented to time, oriented to situation, CN II-XII grossly intact. ABSENT: motor sensory deficit Psychiatric exam: PRESENT: appropriate affect, normal mood Skin exam: PRESENT: dry, intact, warm. ABSENT: jaundice, rash, urticaria Results Laboratory Results: 02/01/18 07:37 02/01/18 02/01/18 02/01/18 07:37 07:37 07:37 Sodium 139.4 Potassium 4.2 Chloride 100 Carbon Dioxide 31 H Anion Gap 8 BUN 27 H Creatinine 0.96 Est GFR ( Amer) > 60 Est GFR (Non-Af Amer) 57 L Glucose 115 H Calcium 9.6 Magnesium 2.6 H Total Bilirubin 0.7 AST 26 ALT 31 Alkaline Phosphatase 50 Total Protein 5.9 L Albumin 3.5 Free T4 1.00 Free T3 pg/mL 3.31 02/01/18 02/01/18 07:37 13:54 Troponin I 0.014 0.012 Impressions: Chest X-Ray 02/01/18 00:40 IMPRESSION: No acute cardiopulmonary process 2010 [employer]- All Rights Reserved Assessment & Plan - Diagnosis (1) Chest pain Qualifiers: Chest pain type: unspecified Qualified Code(s): R07.9 - Chest pain, unspecified Is this a current diagnosis for this admission?: Yes Plan: Patient will be seen by Dr. Mendez in consultation is also plan to perform an exercise tolerance test with a Cardiolite radionuclear evaluation component. Serial cardiac enzymes and EKG evaluations were negative for acute myocardial injury or ischemia. (2) COPD (chronic obstructive pulmonary disease) Qualifiers: COPD type: unspecified COPD Qualified Code(s): J44.9 - Chronic obstructive pulmonary disease, unspecified Is this a current diagnosis for this admission?: Yes Plan: Patient will be continued on her usual medications for COPD with the exception of albuterol which seems to cause a significant tachycardia for her. We will try levalbuterol as a substitute to perhaps reduce the tachycardia. (3) Hypertension Qualifiers: Hypertension type: essential hypertension Qualified Code(s): I10 - Essential (primary) hypertension Is this a current diagnosis for this admission?: Yes Plan: Patient is currently taking metoprolol XL 50 mg p.o. nightly for her hypertension as well as losartan 50 mg p.o. daily. Her blood pressures been elevated and in an attempt to perhaps improve her chronic diastolic congestive heart failure increasing her dose of metoprolol XL 200 mg nightly would seem quite appropriate. This will be undertaken and we will observe for effect. (4) Chronic diastolic congestive heart failure, NYHA class 3 Is this a current diagnosis for this admission?: Yes Plan: Doe has significant problems with dyspnea as well as dyspnea on exertion and she also complains of swelling in her lower extremities and the general inability to perform activities and functions that she had been able to perform in the past but now seems to be too tired or short of breath to do these things. She had been having trouble with her back and has been on a lot of steroids and gained over 50 pounds recently. Now she has a hard time getting up at all and becomes immediately dyspneic with any type of activity. She had an echocardiogram performed by Dr. Mendez about a month ago and was told that her ejection fraction was "okay". Therefore with limited information and the patient's symptomology is a sale that she has chronic diastolic congestive heart failure [place] [employer] class III. She will be treated as such by adding spironolactone to her regimen and continuing her on losartan and metoprolol XL. Further input from Dr. Mendez following his consultation and her cardiac stress test will be of great value. - Time Time Spent with patient: 25-34 minutes Medications reviewed and adjusted accordingly: Yes Anticipated discharge: Home Within: within 36 hours
[2018-02-01] MEDS ORDERED: BUMETANIDE INJ/PF 1 MG/4 ML SDV IV ONE (18:00)
[2018-02-01] MEDS ORDERED: METOPROLOL SUCCINATE 50 MG TAB.SR.24H PO SCH ×2 (22:00)
[2018-02-01] MEDS ORDERED: MONTELUKAST SODIUM 10 MG TABLET PO SCH (22:00)
[2018-02-01] MEDS ORDERED: LURASIDONE HCL 40 MG TABLET PO SCH (22:00)
--- NOTE | 2018-02-01 22:03 | EKG REPORT ---
SEVERITY:- BORDERLINE ECG - SINUS TACHYCARDIA BORDERLINE T ABNORMALITIES, INFERIOR LEADS : Confirmed by: Kristin Vega MD 01-Feb-2018 22:02:49
[2018-02-01] MEDS ORDERED: CYCLOBENZAPRINE HCL 10 MG TABLET PO PRN (23:00)
[2018-02-01] MEDS ORDERED: METHIMAZOLE 5 MG TABLET PO ONE (23:05)
[2018-02-01] MEDS ORDERED: LURASIDONE HCL 40 MG TABLET PO ONE (23:15)
[2018-02-02] MEDS: IPRATROPIUM BROMIDE 0.06% NASAL SPRAY 15 ML NASL SCH ×3 (00:57→15:14)
[2018-02-02 05:15] LABS: ABSOLUTE LYMPHOCYTES (AUTO) 1.1 10^3/uL (0.5-4.7); ABSOLUTE MONOCYTES (AUTO) 0.6 10^3/uL (0.1-1.4); ABSOLUTE NEUT (AUTO) 9.9 10^3/uL (1.7-8.2); BASOPHILS % (AUTO) 0.3 % (0-2); EOSINOPHILS % (AUTO) 0.1 % (0-6); HEMATOCRIT 40.9 % (36.0-47.0); HEMOGLOBIN 14.2 g/dL (12.0-15.5); LYMPHOCYTES % (AUTO) 9.4 % (13-45); MEAN CORPUSCULAR HEMOGLOBIN 31.8 pg (27.0-33.4); MEAN CORPUSCULAR HGB CONC 34.7 g/dL (32.0-36.0); MEAN CORPUSCULAR VOLUME 92 fl (80-97); PLATELET COUNT 220 10^3/uL (150-450); RED BLOOD COUNT 4.46 10^6/uL (3.72-5.28); RED CELL DISTRIBUTION WIDTH 13.3 % (11.5-14.0); SEGMENTED NEUTROPHILS % (AUTO) 85.2 % (42-78); TOTAL CELLS COUNTED % (AUTO) 100 %; WHITE BLOOD COUNT 11.6 10^3/uL (4.0-10.5)
[2018-02-02 05:37] LABS: CHOLESTEROL 243.48 mg/dL (0-200); TRIGLYCERIDES 109 mg/dL (<150)
[2018-02-02 05:48] LABS: DIRECT LDL 177 mg/dL (<100)
[2018-02-02] MEDS ORDERED: LANSOPRAZOLE 15 MG TAB.RAP.DR PO SCH (06:00)
[2018-02-02] MEDS ORDERED: HYDROCHLOROTHIAZIDE 12.5 MG TABLET PO SCH (08:00)
[2018-02-02] MEDS ORDERED: SPIRONOLACTONE 25 MG TABLET PO SCH (10:00)
[2018-02-02] MEDS ORDERED: OLOPATADINE HCL 0.1% OPH SOLN 5 ML OU SCH (10:00)
[2018-02-02] MEDS: LOSARTAN POTASSIUM 50 MG TABLET PO SCH (12:22)
[2018-02-02] MEDS: PREDNISONE 10 MG TABLET PO SCH (12:23)
[2018-02-02] MEDS: ENOXAPARIN SODIUM INJ 40 MG/0.4 ML DISP.SYRIN SUBCUT SCH (12:24)
[2018-02-02] MEDS: BUDESONIDE/FORMOTEROL 160-4.5 MCG 60 PUFF/6 GM MDI IH SCH (12:26)
[2018-02-02] MEDS ORDERED: METOPROLOL SUCCINATE 50 MG TAB.SR.24H PO ONE ×2 (14:29→14:30)
[2018-02-02 16:47] VITALS: BP 130/68
[2018-02-02] MEDS ORDERED: LURASIDONE HCL 60 MG TABLET PO SCH (18:00)
--- NOTE | 2018-02-02 18:09 | PDOC DISCHARGE SUMMARY ---
General - Admit/Disc Date/PCP Admission Date/Primary Care Provider: 02/01/18 03:24 MARIANGEL BROWN DO Discharge Date: 02/02/18 - Discharge Diagnosis (1) Chest pain Is this a current diagnosis for this admission?: Yes - Additional Information Discharge Diet: Cardiac Discharge Activity: Activity As Tolerated, Balance Activity w/Rest Prescriptions: Metoprolol Succinate 100 mg PO DAILY #30 tab.er.24h Home Medications: Albuterol Sulfate [Proair HFA] 2 puff IH Q6HP PRN 07/24/17 Lamotrigine [Lamictal] 50 mg PO DAILY 07/24/17 Losartan Potassium 50 mg PO DAILY 07/24/17 Omeprazole 20 mg PO DAILY 07/24/17 Bromfenac Sodium [Prolensa] 1 drop OS DAILY 01/12/18 Difluprednate [Durezol] 1 drop OS BID 01/12/18 Glycopyrrol/Nebulizer/Accessor [Lonhala Magnair 25 Mcg Starter] 25 mcg IH BID Mepolizumab [Nucala] 100 mg SQ Q28D PRN 01/12/18 Albuterol Sulfate [Ventolin 0.083% Neb 2.5 mg/3 mL Ampul] 1 vial NEB RTQ8HP PRN 02/01/18 Budesonide/Formoterol Fumarate [Symbicort HFA 160-4.5 mcg Inhaler 6 gm] 2 puff IH Q12 02/01/18 Cyclobenzaprine HCl [Flexeril 5 mg Tablet] 5 mg PO TIDP PRN 02/01/18 Epinephrine [Epipen 2-Mega] 0.3 mg IM ASDIR PRN 02/01/18 Hydrochlorothiazide [Hydrodiuril 12.5 mg Tablet] 12.5 mg PO QAM 02/01/18 Lurasidone HCl [Latuda 60 mg Tablet] 60 mg PO QPM 02/01/18 Methimazole [Tapazole 5 mg Tablet] 5 mg PO DAILY 02/01/18 Montelukast Sodium [Singulair 10 mg Tablet] 10 mg PO QHS 02/01/18 Olopatadine HCl [Pazeo] 1 drop OU DAILY 02/01/18 Prednisone [Deltasone 10 mg Tablet] 10 mg PO Q12 02/01/18 Metoprolol Succinate 100 mg PO DAILY #30 tab.er.24h 02/02/18 Ipratropium [place] [Atrovent 0.06% Nasal [place]] 2 spray NASL TIDP PRN 02/06/18 History of Present Illness History of Present Illness: Admitting hospitalist's H&P: DOE FUNG is a 77 year old female with medical history of hypertension, ARIEL, bipolar, COPD. Patient comes to the emergency department with chest discomfort. Around 11:30 PM she was reading when suddenly it started with chest discomfort in the center of her chest, she describes this as a squeezing, nonradiating, 5/10 in intensity, no associated with diaphoresis, lightheadedness , nausea, vomiting. She has chronic shortness of breath secondary to her COPD and has been worsening. Denies fever or chills. Patient has chronic dizziness and headaches when she stands up and is being managed by her primary care physician. Decreased exertional tolerance secondary to back problems, complains of mild right foot swelling lately. Patient tells me that she had 2 similar symptoms in the last 3 weeks but nothing like days, with aspirin resolved. Her last stress test was more than a year ago with plans as was a pharmacological one. She follows Dr. Mendez and she had an echocardiogram last Thursday and is scheduled for a stress test first week of February. Hospital Course Hospital Course: Patient was admitted for chest pain which she described as a squeezing, midsternal chest pain. Her troponin was mildly elevated at 0.012 then 0.02. Her EKGs did not show signs if ischemia or infarction. She was already chest pain free since admission. She underwent stress testing this morning which came back normal. She has chronic tachycardia and takes lopressor 50 mg daily. This was increased to 200 mg daily yesterday by preceding hospitalist. Apparently, patient did not get any lopressor yesterday. Patient denies any shortness of breath. She has also been saturating well on room air and even on ambulation. Her lopressor was revised to 100 mg daily instead of of 200 mg daily. She did receive this earlier today and her heart rate and blood pressure tolerated the increase in dose. Physical Exam Vital Signs: Temp Pulse Resp BP Pulse Ox 98.6 F 95 18 130/68 H 97 02/02/18 16:57 02/02/18 16:57 02/02/18 16:57 02/02/18 16:57 02/02/18 16:57 Intake & Output 02/01/18 02/02/18 02/03/18 06:59 06:59 06:59 Intake Total 0 1330 0 Output Total 0 0 0 Balance 0 1330 0 Weight 223 lb 1.725 oz 229 lb 0.964 oz General appearance: PRESENT: no acute distress, well-developed, well-nourished Head exam: PRESENT: atraumatic, normocephalic Eye exam: PRESENT: conjunctiva pink, EOMI, PERRLA. ABSENT: scleral icterus Ear exam: PRESENT: normal external ear exam Mouth exam: PRESENT: moist, tongue midline Neck exam: ABSENT: carotid bruit, JVD, lymphadenopathy, thyromegaly Respiratory exam: PRESENT: clear to auscultation gisele. ABSENT: rales, rhonchi, wheezes Cardiovascular exam: PRESENT: RRR. ABSENT: diastolic murmur, rubs, systolic murmur Pulses: PRESENT: normal dorsalis pedis pul GI/Abdominal exam: PRESENT: normal bowel sounds, soft. ABSENT: distended, guarding, mass, organolmegaly, rebound, tenderness Rectal exam: PRESENT: deferred Neurological exam: PRESENT: alert, awake, oriented to person, oriented to place , oriented to time, oriented to situation, CN II-XII grossly intact. ABSENT: motor sensory deficit Results Laboratory Results: 02/02/18 04:43 02/01/18 07:37 02/02/18 02/02/18 02/02/18 04:43 04:43 04:43 WBC 11.6 H RBC 4.46 Hgb 14.2 Hct 40.9 MCV 92 MCH 31.8 MCHC 34.7 RDW 13.3 Plt Count 220 Seg Neutrophils % 85.2 H Lymphocytes % 9.4 L Monocytes % 5.0 Eosinophils % 0.1 Basophils % 0.3 Absolute Neutrophils 9.9 H Absolute Lymphocytes 1.1 Absolute Monocytes 0.6 Absolute Eosinophils 0.0 Absolute Basophils 0.0 Triglycerides 109 Cholesterol 243.48 H LDL Cholesterol Direct 177 H VLDL Cholesterol 22.0 HDL Cholesterol 65 TSH 1.75 02/01/18 02/01/18 02/01/18 07:37 13:54 19:12 Troponin I 0.014 0.012 0.026 Impressions: Chest X-Ray 02/01/18 00:40 IMPRESSION: No acute cardiopulmonary process 2010 [employer]- All Rights Reserved Qualifiers - * PATIENT BEING DISCHARGED WITH ANY OF THE FOLLOWING DIAGNOSIS: No
[2018-02-02] MEDS ORDERED: METHIMAZOLE 5 MG TABLET PO SCH (22:00)
--- NOTE | 2018-02-03 14:48 | DRAGON STRESS TEST REPORT ---
Exercise EKG treadmill Cardiolite stress test using SPECT. Data procedure: 02/02/2018. Ordering Physician: Dr. Winter Garcia Indication:: Chest pain. Coronary risk factors:. Age, hypertension, hyperlipidemia, and family history of coronary artery disease. Significant physical findings prior to stress testing show a blood pressure of 146/79, and a heart rate of 127 beats per minute. Auscultation of the heart shows normal S1 and S2. No S3 or S4 gallops. Systolic murmur in the left sternal border and apex. Lungs are clear to auscultation and percussion. Resting 12-lead EKG:. Sinus Tachycardia. Within normal limits. Procedure: The patient was exercised on a Modified [place] protocol. . The patient walked a total of 5 minutes and 8 seconds on this protocol and reached a peak heart rate of 144 beats per minute, which is 100% of maximum predicted heart rate for age. This is at a workload of 3.40 METS. The test was stopped because of achievement of 100% of maximum predicted heart rate for age.. The patient described symptoms of no chest pain/discomfort. EXERCISE EKG: Showed no evidence of exercise-induced myocardial ischemia by EKG criteria. Arrhythmias seen: None. The blood pressure response was mildly hypertensive. At peak exercise the blood pressure was 200/77 millimeters of Hg. The double product was 28.8 K. Summary of findings and interpretation: 1. No chest pain or chest discomfort symptoms reproduced. 2. No EKG evidence of ischemia in the form of ST segment depression. 3. Normal blood pressure response. 4. No arrhythmias seen. 5. Poor exercise tolerance, poor aerobic capacity. Diagnostic treadmill stress test negative for ischemia by EKG criteria. Recommendations: Correlate with nuclear Cardiolite images. Nuclear data: At rest the patient was given 13.90 millicuries of technetium 99 sestamibi, and as per protocol rest none gated SPECT images were obtained. The patient was exercised on a treadmill [see exercise physiology]. One minute prior to termination of exercise, 45.8 millicuries of technetium and there sestamibi was injected intravenously. As per protocol stress gated images were obtained. Impression: Review of images show that all segments of the myocardium had normal perfusion at rest, and normal perfusion post exercise. All segments of the myocardium had normal motion, contraction, and thickening by gated study. T. I D. ratio was normal at 0.83. The computer read rest and stress left ventricular ejection fractions were 60 %, and 64 % respectively. Conclusions: 1. No clinical symptoms of exercise-induced myocardial ischemia at a peak heart rate of 144 beats per minute, patient having achieved 100% of maximum predicted heart rate for age, at a workload of of 3.40 METS. 2. No EKG evidence of exercise-induced myocardial ischemia. 3. No arrhythmias seen. Mildly Hypertensive blood pressure response. 4.No scintigraphic evidence of exercise-induced myocardial ischemia. 5.No scintigraphic evidence of myocardial infarction/scar. Recommendations Aggressive coronary risk factor modificnd treatment of underlying comorbidities.quang fong
== END 2018-02-02 18:48 | disposition home or self-care (01) ==
LOC: ER 00:05 → EH 03:24 → 3N 05:23
PROVIDERS: ADMIT Internal Medicine; ATTEND Internal Medicine
DX: R07.89 Other chest pain (principal); I11.0 Hypertensive heart disease with heart failure; I50.32 Chronic diastolic (congestive) heart failure; K21.9 Gastro-esophageal reflux disease without esophagitis; J44.9 Chronic obstructive pulmonary disease, unspecified; R42 Dizziness and giddiness; R51 Headache; R00.0 Tachycardia, unspecified; M79.89 Other specified soft tissue disorders; E05.90 Thyrotoxicosis, unspecified without thyrotoxic crisis or storm; Z79.899 Other long term (current) drug therapy; Z85.828 Personal history of other malignant neoplasm of skin; Z90.49 Acquired absence of other specified parts of digestive tract; Z95.1 Presence of aortocoronary bypass graft; Z87.891 Personal history of nicotine dependence; Z82.49 Family history of ischemic heart disease and other diseases of the circulatory system; Z88.5 Allergy status to narcotic agent; Z87.11 Personal history of peptic ulcer disease
CPT/HCPCS: 93005 ×2; 99285; 36415 ×2; 84439; 83735; 84443; 85025 ×2; 80048; 80053; 84484; 84481; 83036; 80061; 93017; 71045; 78452; 93010; 94640 ×2; G0378 ×3; A9500; J3490 ×3; A9270 ×8; J1885; J1650 ×2; Q9969; J7512

== ENCOUNTER 2018-02-06 06:11 | Inpatient (IN) | payer MEDICARE, MEDICAID ==
[2018-02-06] MEDS ORDERED: ONDANSETRON HCL INJ/PF 4 MG/2 ML SDV IV ONE (07:19)
[2018-02-06] MEDS ORDERED: FENTANYL CITRATE INJ/PF 100 MCG/2 ML AMPUL IV ONE (07:19)
--- NOTE | 2018-02-06 07:48 | ER Document Report ---
ED General - General Chief Complaint: Vomiting Stated Complaint: VOMITING Time Seen by Provider: 02/06/18 07:07 TRAVEL OUTSIDE OF THE [place] IN LAST 30 DAYS: No - HPI Notes: Patient is a 77-year-old female with a history of hypertension, ARIEL, bipolar, COPD who presents to the ED complaining of epigastric and right upper quadrant pain that started at 3 AM this morning. Patient states that it is associated with nausea and vomiting. Patient states that the pain will radiate to her right scapular area. Patient states that she has had episodes of this intermittently in the recent past. Patient states that she was admitted for chest discomfort about a week ago and had an unremarkable workup including a stress test. Patient is wondering if it is her gallbladder as she was told in the past that there may be sludge present. Patient states that she does have some loose stool, but no watery diarrhea. She has no other concerns or complaints at this time. Denies any headache, fever, URI, sore throat, chest pain, palpitations, syncope, cough, shortness of breath, wheeze, dyspnea, diarrhea, urinary retention, dysuria, hematuria, loss of control of bowel or bladder, numbness/tingling, saddle anesthesia, muscle paralysis/weakness, or rash. - Related Data Allergies/Adverse Reactions: cephalexin [From Keflex] Allergy (Verified 02/02/18 12:45) morphine Allergy (Verified 02/02/18 12:45) sulfamethoxazole [From Bactrim] Allergy (Verified 02/02/18 12:45) trimethoprim [From Bactrim] Allergy (Verified 02/02/18 12:45) Past Medical History - Social History Smoking Status: Never Smoker Family History: CAD, DM, Hyperlipidemia, Hypertension, Malignancy - SKIN Patient has suicidal ideation: No Patient has homicidal ideation: No - Past Medical History Cardiac Medical History: Reports: Hx Hypercholesterolemia, Hx Hypertension Denies: Hx Heart Attack Pulmonary Medical History: Reports: Hx Asthma, Hx COPD, Hx Sleep Apnea Neurological Medical History: Denies: Hx Cerebrovascular Accident, Hx Seizures Endocrine Medical History: Reports: Hx Diabetes Mellitus Type 2, Hx Hyperthyroidism. Denies: Hx Diabetes Mellitus Type 1, Hx Hypothyroidism Renal/ Medical History: Denies: Hx End Stage Renal Disease, Hx Peritoneal Dialysis Malignancy Medical History: Reports: Hx Skin Cancer GI Medical History: Reports: Hx Gastroesophageal Reflux Disease, Hx Ulcer - 1970. 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 Denies: Hx Mastectomy, Hx Open Heart Surgery, Hx Pacemaker Review of Systems - Review of Systems -: Yes All other systems reviewed and negative Physical Exam - Vital signs Vitals: Temp Pulse Resp BP Pulse Ox 97.4 F 84 18 119/70 97 02/06/18 06:16 02/06/18 06:16 02/06/18 06:16 02/06/18 06:16 02/06/18 06:16 - Notes Notes: PHYSICAL EXAMINATION: GENERAL: Well-appearing, well-nourished and in no acute distress. HEAD: Atraumatic, normocephalic. EYES: Pupils equal round and reactive to light, extraocular movements intact, sclera anicteric, conjunctiva are normal. ENT: Nares patent and without discharge. oropharynx clear without exudates. No tonsilar hypertrophy or erythema. Moist mucous membranes. NECK: Normal range of motion, supple without lymphadenopathy LUNGS: Breath sounds clear to auscultation bilaterally and equal. No wheezes rales or rhonchi. HEART: Regular rate and rhythm without murmurs, rubs, gallops. ABDOMEN: Soft, nondistended abdomen. No guarding, no rebound. No masses appreciated. Normal bowel sounds present. No CVA tenderness bilaterally. + tenderness to the epigastrum and RUQ. No lower abd tenderness. Obese. Musculoskeletal: FROM to passive/active. Strength 5+/5. Extremities: No cyanosis, clubbing, or edema b/l. Peripheral pulses 2+. Capillary refill less than 3 seconds. NEUROLOGICAL: Normal speech, normal gait. PSYCH: Normal mood, normal affect. SKIN: Warm, Dry, normal turgor, no rashes or lesions noted. Course - Re-evaluation Re-evalutation: 02/06/18 07:47 Last solid food NPO was 2100 last evening, but has been 'sipping' on water throuhout the night. Pt c/o RUQ/epigastric pain with n/v. We will obtain labs, US, and give fluids/ meds. Pt to remain NPO at this time. 02/06/18 10:06 Patient is an afebrile, well-hydrated, 77-year-old female who presents to the ED with right upper quadrant pain, gallstones, and elevated white blood cell count. Vitals are otherwise acceptable at this time. Patient is currently asymptomatic and is feeling much better. Labs are otherwise unremarkable aside from the elevated white blood cell count. See ultrasound report. I did call and speak with Dr. Castrejon who would like her admitted to hospitalist service and he will consult for surgery. Call placed to Dr. Eller, hospitalist. 02/06/18 10:[address] Eller who then spoke with Dr. Castrejon to figure out who would be accepting/consulting. Hospitalist service accepted for admission. 02/06/18 10:[address] Landis who accepted patient for admit. - Vital Signs Vital signs: Temp Pulse Resp BP Pulse Ox 97.4 F 84 18 137/65 H 98 02/06/18 06:16 02/06/18 06:16 02/06/18 06:16 02/06/18 10:06 02/06/18 10:06 - Laboratory Result Diagrams: 02/06/18 08:49 02/06/18 08:49 Laboratory results interpreted by me: 02/06/18 02/06/18 08:49 08:49 WBC 21.3 H Seg Neuts % (Manual) 87 H Lymphocytes % (Manual) 10 L Abs Neuts (Manual) 18.5 H BUN 32 H Glucose 121 H Total Protein 6.1 L Discharge - Discharge Clinical Impression: Acute cholecystitis Condition: Stable Disposition: ADMITTED INPATIENT Admitting Provider: Hospitalist - Dr. Landis Unit Admitted: Surgical Floor Referrals: MARIANGEL BROWN DO [Primary Care Provider] - Follow up as needed
--- NOTE | 2018-02-06 08:04 | EKG REPORT ---
SEVERITY:- NORMAL ECG - SINUS RHYTHM : Confirmed by: Kristin Vega MD 06-Feb-2018 08:03:05
--- NOTE | 2018-02-06 08:18 | RADIOLOGY REPORT (SQ) ---
EXAM DESCRIPTION: U/S ABDOMEN LIMITED W/O DOP COMPLETED DATE/TIME: 02/06/2018 7:57 am REASON FOR STUDY: RUQ pain COMPARISON: Abdominal ultrasound 11/23/2017 CT chest 01/02/2018 TECHNIQUE: Dynamic and static grayscale images acquired of the abdomen and recorded on PACS. Additio nal selected color Doppler and spectral images recorded. LIMITATIONS: Midline bowel gas, body habitus FINDINGS: PANCREAS: Midline pancreas unremarkable LIVER: Mild hepatomegaly. Suspect fatty infiltration of the liver, difficult to penetrate with the u ltrasound energy LIVER VASCULATURE: Normal directional flow of the main portal vein and hepatic veins. GALLBLADDER: Multiple stones in the gallbladder without gallbladder wall thickening or pericholecysti c fluid ULTRASOUND-DETECTED WHITE'S SIGN: Negative. INTRAHEPATIC DUCTS AND COMMON DUCT: No intrahepatic biliary ductal dilatation. Common bile duct diff icult to visualize at the silvestre hepatis. INFERIOR VENA CAVA: Not well seen AORTA: Not well seen RIGHT KIDNEY: Normal size. Normal echogenicity. No solid or suspicious masses. No hydronephrosis. No calcifications. PERITONEAL AND RIGHT PLEURAL SPACE: No ascites or effusions. OTHER: No other significant findings. IMPRESSION: Gallstones without gallbladder wall thickening or pericholecystic fluid Fatty liver TECHNICAL DOCUMENTATION: JOB ID: [id number] [employer]- All Rights Reserved Reading location - IP/workstation name: [email or web address]
--- NOTE | 2018-02-06 08:20 | RADIOLOGY REPORT (SQ) ---
EXAM DESCRIPTION: CHEST SINGLE VIEW COMPLETED DATE/TIME: 02/06/2018 8:02 am REASON FOR STUDY: RUQ pain COMPARISON: Chest film 02/02/[address] chest 01/02/2018 EXAM PARAMETERS: NUMBER OF VIEWS: One view. TECHNIQUE: Single frontal radiographic view of the chest acquired. RADIATION DOSE: NA LIMITATIONS: None. FINDINGS: LUNGS AND PLEURA: Minimal bandlike bibasilar atelectasis. No fluffy alveolar infiltrates worrisome for pneumonia or pulmonary edema. No pleural effusions or pneumothorax. Calcified granuloma right lower lobe with calcified right lower hilar lymph nodes, unchanged from CT 01/02/2018. MEDIASTINUM AND HILAR STRUCTURES: No masses. Contour normal. HEART AND VASCULAR STRUCTURES: Heart normal in size. Normal vasculature. BONES: No acute findings. HARDWARE: None in the chest. OTHER: No other significant finding. IMPRESSION: NO ACUTE RADIOGRAPHIC FINDING IN THE CHEST. TECHNICAL DOCUMENTATION: JOB ID: [id number] [employer]- All Rights Reserved Reading location - IP/workstation name: [email or web address]
[2018-02-06] MEDS: NORMAL SALINE 1000 ML 1,000 ML IV PRN ×2 (08:33→10:14)
[2018-02-06 09:18] LABS: HEMATOCRIT 41.4 % (36.0-47.0); HEMOGLOBIN 14.1 g/dL (12.0-15.5); MEAN CORPUSCULAR HEMOGLOBIN 31.5 pg (27.0-33.4); MEAN CORPUSCULAR VOLUME 93 fl (80-97); PLATELET COUNT 245 10^3/uL (150-450); RED BLOOD COUNT 4.46 10^6/uL (3.72-5.28); RED CELL DISTRIBUTION WIDTH 13.3 % (11.5-14.0); WHITE BLOOD COUNT 21.3 10^3/uL (4.0-10.5)
[2018-02-06 09:37] LABS: ABSOLUTE LYMPHOCYTES# (MANUAL) 2.1 10^3/uL (0.5-4.7); ABSOLUTE MONOCYTES # (MANUAL) 0.6 10^3/uL (0.1-1.4); ABSOLUTE NEUTROPHILS# (MANUAL) 18.5 10^3/uL (1.7-8.2); BASOPHILS % (MANUAL) 0 % (0-2); EOSINOPHILS % (MANUAL) 0 % (0-6); LYMPHOCYTES % (MANUAL) 10 % (13-45); MONOCYTES % (MANUAL) 3 % (3-13); SEGMENTED NEUTROPHILS % (MAN) 87 % (42-78); TOTAL CELLS COUNTED 100
[2018-02-06 09:41] LABS: ALANINE AMINOTRANSFERASE 31 U/L (9-52); ALBUMIN 3.5 g/dL (3.5-5.0); ALKALINE PHOSPHATASE 52 U/L (38-126); ANION GAP 12 (5-19); ASPARTATE AMINO TRANSFERASE 28 U/L (14-36); BILIRUBIN,DIRECT 0.1 mg/dL (0.0-0.4); BILIRUBIN,TOTAL 0.4 mg/dL (0.2-1.3); BLOOD UREA NITROGEN 32 mg/dL (7-20); CALCIUM 8.8 mg/dL (8.4-10.2); CARBON DIOXIDE 27 mmol/L (22-30); CHLORIDE 101 mmol/L (98-107); GLUCOSE 121 mg/dL (75-110); LIPASE 62.3 U/L (23-300); PLATELET COMMENT ADEQUATE; POTASSIUM 3.8 mmol/L (3.6-5.0); SODIUM 140.3 mmol/L (137-145); TOTAL PROTEIN 6.1 g/dL (6.3-8.2); TOXIC GRANULATION 1+; TOXIC VACUOLATION PRESENT
[2018-02-06] MEDS ORDERED: CLINDAMYCIN 600 MG/D5W RTU 600 MG/50 ML RTUPB IV ONE (10:38)
--- NOTE | 2018-02-06 10:51 | PDOC CONSULTATION ---
Consultation Consult Date: 02/06/18 Attending physician:: soto Consult reason:: Symptomatic cholelithiasis History of Present Illness Admission Date/PCP: MARIANGEL FELIZ DO History of Present Illness: DOE FUNG is a 77 year old female Presents to the emergency department by ground rescue complaining of acute onset epigastric abdominal pain radiating to the back intrascapular region. This is associated with nausea and one episode of vomiting. She has had similar episodes over the last several weeks, escalating in intensity. She was told years ago she may have sludge in her gallbladder. There is no family history of gallbladder disease. In the emergency department she was found to have right upper quadrant tenderness, leukocytosis, and gallbladder ultrasonography performed demonstrating gallstones. Surgery was consulted and she was advised admission to the hospitalist service with surgery consulting. The patient was hospitalized at [facility] last week for similar symptoms felt secondary to acute cardiac condition. Although her admission troponin levels were slightly elevated, they normalized quickly. EKG showed sinus tachycardia which was managed with beta-blockers. She had an unremarkable echocardiogram over a year ago showing mild mitral valve prolapse. She had a negative stress test under the direction of Dr. Mendez. Patient's regular medical doctor is Dr. Feliz. Past Medical History Past Medical History: Steroid dependent COPD Cardiac Medical History: Reports: Hyperlipidema, Hypertension Denies: Myocardial Infarction Pulmonary Medical History: Reports: Asthma, Chronic Obstructive Pulmonary Disease (COPD), Sleep Apnea Neurological Medical History: Denies: Seizures Endocrine Medical History: Reports: Diabetes Mellitus Type 2, Hyperthyroidism Denies: Diabetes Mellitus Type 1, Hypothyroidism Renal/ Medical History: Denies: End Stage Renal Disease Malignancy Medical History: Reports: Skin Cancer GI Medical History: Reports: Gastroesophageal Reflux Disease Denies: Cirrhosis, Hepatitis, Hiatal Hernia Musculoskeltal Medical History: Denies: Arthritis, Gout Skin Medical History: Denies: Psoriasis Psychiatric Medical History: Reports: Bipolar Disorder, Depression - anxiety Hematology: Denies: Anemia, Sickle Cell Disease Infectious Medical History: Denies: Clostridium Difficile Past Surgical History Past Surgical History: Reports: Appendectomy, 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, Hysterectomy, Other - orif l WRIST Denies: Amputation, Mastectomy, Pacemaker Social History Smoking Status: Never Smoker Frequency of Alcohol Use: Occasional Hx Recreational Drug Use: No Drugs: None Hx Prescription Drug Abuse: No Family History Family History: CAD, DM, Hyperlipidemia, Hypertension, Malignancy - SKIN Parental Family History Reviewed: Yes Children Family History Reviewed: Yes Sibling(s) Family History Reviewed.: Yes Medication/Allergy Home Medications: Albuterol Sulfate [Proair HFA] 2 puff IH Q6HP PRN 07/24/17 Lamotrigine [Lamictal] 50 mg PO DAILY 07/24/17 Losartan Potassium 50 mg PO DAILY 07/24/17 Omeprazole 20 mg PO DAILY 07/24/17 Bromfenac Sodium [Prolensa] 1 drop OS DAILY 01/12/18 Difluprednate [Durezol] 1 drop OS BID 01/12/18 Glycopyrrol/Nebulizer/Accessor [Lonhala Magnair 25 Mcg Starter] 25 mcg IH BID Mepolizumab [Nucala] 100 mg SQ Q28D PRN 01/12/18 Albuterol Sulfate [Ventolin 0.083% Neb 2.5 mg/3 mL Ampul] 1 vial NEB RTQ8HP PRN 02/01/18 Budesonide/Formoterol Fumarate [Symbicort HFA 160-4.5 mcg Inhaler 6 gm] 2 puff IH Q12 02/01/18 Cyclobenzaprine HCl [Flexeril 5 mg Tablet] 5 mg PO TIDP PRN 02/01/18 Epinephrine [Epipen 2-Mega] 0.3 mg IM ASDIR PRN 02/01/18 Hydrochlorothiazide [Hydrodiuril 12.5 mg Tablet] 12.5 mg PO QAM 02/01/18 Lurasidone HCl [Latuda 60 mg Tablet] 60 mg PO QPM 02/01/18 Methimazole [Tapazole 5 mg Tablet] 5 mg PO DAILY 02/01/18 Montelukast Sodium [Singulair 10 mg Tablet] 10 mg PO QHS 02/01/18 Olopatadine HCl [Pazeo] 1 drop OU DAILY 02/01/18 Prednisone [Deltasone 10 mg Tablet] 10 mg PO Q12 02/01/18 Besifloxacin HCl [Besivance 0.6% Oph Susp 5 ml] 1 drop OP .12PM,3PM,8PM TODAY bottle 02/02/18 Metoprolol Succinate 100 mg PO DAILY #30 tab.er.24h 02/02/18 Allergies/Adverse Reactions: cephalexin [From VidAngel] Allergy (Verified 02/02/18 12:45) morphine Allergy (Verified 02/02/18 12:45) sulfamethoxazole [From Bactrim] Allergy (Verified 02/02/18 12:45) trimethoprim [From Bactrim] Allergy (Verified 02/02/18 12:45) Review of Systems Constitutional: PRESENT: as per HPI Eyes: ABSENT: visual disturbances Ears: ABSENT: hearing changes Cardiovascular: PRESENT: as per HPI Gastrointestinal: PRESENT: as per HPI Genitourinary: ABSENT: dysuria, hematuria Musculoskeletal: ABSENT: joint swelling Integumentary: PRESENT: other - Scattered areas of bruising secondary to subcu Lovenox, and chronic ibuprofen use Psychiatric: PRESENT: other - History of bipolar disorder, depression Physical Exam Vital Signs: Temp Pulse Resp BP Pulse Ox 97.4 F 84 18 137/65 H 98 02/06/18 06:16 02/06/18 06:16 02/06/18 06:16 02/06/18 10:06 02/06/18 10:06 Intake & Output 02/05/18 02/06/18 02/07/18 06:59 06:59 06:59 Intake Total 1000 Balance 1000 Weight 99.79 kg General appearance: PRESENT: no acute distress Head exam: PRESENT: normocephalic Eye exam: PRESENT: EOMI Neck exam: PRESENT: full ROM Respiratory exam: PRESENT: rhonchi Cardiovascular exam: PRESENT: RRR Pulses: PRESENT: normal carotid pulses, normal radial pulses, normal femoral pulses GI/Abdominal exam: PRESENT: other - Distended, no rigidity; mild right upper quadrant tenderness to deep palpation. Small umbilical hernia. Scar infraumbilical region consistent with Gentrourinary exam: PRESENT: other - Deferred Extremities exam: PRESENT: full ROM Musculoskeletal exam: PRESENT: ambulatory Neurological exam: PRESENT: alert, oriented to person, oriented to place, oriented to time, oriented to situation Psychiatric exam: PRESENT: appropriate affect Results Laboratory Results: 02/06/18 08:49 02/06/18 08:49 02/06/18 02/06/18 08:49 08:49 WBC 21.3 H RBC 4.46 Hgb 14.1 Hct 41.4 MCV 93 MCH 31.5 MCHC 34.0 RDW 13.3 Plt Count 245 Seg Neutrophils % Not Reportable Lymphocytes % Not Reportable Monocytes % Not Reportable Eosinophils % Not Reportable Basophils % Not Reportable Absolute Neutrophils Not Reportable Absolute Lymphocytes Not Reportable Absolute Monocytes Not Reportable Absolute Eosinophils Not Reportable Absolute Basophils Not Reportable Sodium 140.3 Potassium 3.8 Chloride 101 Carbon Dioxide 27 Anion Gap 12 BUN 32 H Creatinine 0.76 Est GFR ( Amer) > 60 Est GFR (Non-Af Amer) > 60 Glucose 121 H Calcium 8.8 Total Bilirubin 0.4 AST 28 ALT 31 Alkaline Phosphatase 52 Total Protein 6.1 L Albumin 3.5 Lipase 62.3 02/06/18 08:49 Troponin I < 0.012 Impressions: Abdomen Ultrasound 02/06/18 07:18 IMPRESSION: Gallstones without gallbladder wall thickening or pericholecystic fluid Fatty liver Chest X-Ray 02/06/18 07:18 IMPRESSION: NO ACUTE RADIOGRAPHIC FINDING IN THE CHEST. Assessment & Plan - Diagnosis (1) Acute cholecystitis Is this a current diagnosis for this admission?: Yes Plan: Impression: Progressive, symptomatic cholecystitis, now resulting in acute cholecystitis with leukocytosis. In the steroid-dependent patient, I have recommended she be admitted to the hospitalist service, and offered interval laparoscopic, possible open cholecystectomy. Recommendations: 1. Keep n.p.o., IV fluids, intravenous antibody next 2. Suggest interval laparoscopic, possible open cholecystectomy, 1 hour, [facility], Dr. Castrejon, today; possibility of drain, need for additional surgery, risks of bile leak, retained common duct stone and other cardiovascular complications discussed with the patient. 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 3. I discussed the above with emergency room staff; anticipate the patient will be admitted to the hospital service with surgery consulting (2) Steroid-dependent COPD Is this a current diagnosis for this admission?: Yes (3) COPD (chronic obstructive pulmonary disease) Qualifiers: COPD type: unspecified COPD Qualified Code(s): J44.9 - Chronic obstructive pulmonary disease, unspecified Is this a current diagnosis for this admission?: Yes (4) History of tobacco abuse Is this a current diagnosis for this admission?: Yes (5) Hypertension Qualifiers: Hypertension type: essential hypertension Qualified Code(s): I10 - Essential (primary) hypertension Is this a current diagnosis for this admission?: Yes - Time Time Spent: 30 to 50 Minutes Smoking Cessation Education: over 10 minutes Medications reviewed and adjusted accordingly: Yes Anticipated discharge: Home Within: within 48 hours - Inpatient Certification Based on my medical assessment, after consideration of the patient's comorbidities, presenting symptoms, or acuity I expect that the services needed warrant INPATIENT care.: Yes I certify that my determination is in accordance with my understanding of Medicare's requirements for reasonable and necessary INPATIENT services [42 CFR 412.3e].: Yes Medical Necessity: Need For IV Fluids, Need for Pain Control, Need for IV Antibiotics, Need for Surgery
[2018-02-06] MEDS ORDERED: GLYCOPYRROLATE 1 MG/5 ML SYRINGE ONE (10:53)
[2018-02-06] MEDS ORDERED: NEOSTIGMINE METHYLSULFATE 10 MG/10 ML VIAL ONE (10:53)
[2018-02-06] MEDS ORDERED: DEXAMETHASONE SOD PHOSPHATE INJ 4 MG/1 ML VIAL ONE (10:53)
[2018-02-06] MEDS ORDERED: SUCCINYLCHOLINE CHLORIDE INJ 200 MG/10 ML VIAL ONE (10:53)
[2018-02-06] MEDS ORDERED: ONDANSETRON HCL INJ/PF 4 MG/2 ML SDV ONE (10:53)
[2018-02-06] MEDS ORDERED: ROCURONIUM BROMIDE INJ 50 MG/5 ML VIAL IV ONE (10:53)
[2018-02-06 10:55] LABS: APPEARANCE,URINE CLEAR; BILIRUBIN,URINE NEGATIVE (NEGATIVE); COLOR,URINE YELLOW; GLUCOSE, URINE NEGATIVE (NEGATIVE); KETONES,URINE NEGATIVE (NEGATIVE); LEUKOCYTE ESTERASE,URINE NEGATIVE (NEGATIVE); NITRITE,URINE NEGATIVE (NEGATIVE); PROTEIN,URINE NEGATIVE (NEGATIVE); URINE SPECIFIC GRAVITY 1.012; UROBILINOGEN,URINE NEGATIVE mg/dL (<2.0)
[2018-02-06] MEDS ORDERED: ONDANSETRON HCL INJ/PF 4 MG/2 ML SDV IV PRN ×2 (11:03→12:49)
[2018-02-06] MEDS ORDERED: RINGERS SOLUTION,LACTATED 1,000 ML IV PRN (11:03)
[2018-02-06] MEDS ORDERED: ALBUTEROL SULFATE HFA (90 MCG/PUFF) 8 GM MDI (1 MDI/ER DISP) IH PRN (11:08)
[2018-02-06] MEDS ORDERED: ALBUTEROL SULFATE 0.083% NEB 2.5 MG/3 ML AMPUL NEB PRN (11:08)
[2018-02-06] MEDS ORDERED: (PENDING PHARMACY ID) (Epinephrine [Epipen 2-Pak] 0.3 MG) IM PRN (11:08)
[2018-02-06] MEDS ORDERED: (PENDING PHARMACY ID) (Cyclobenzaprine Hcl [Flexeril 5 Mg Tablet] 5 MG) PO PRN (11:08)
[2018-02-06] MEDS ORDERED: BUPIVACAINE HCL 0.5 % INJ/PF 30 ML SDV ONE (11:13)
[2018-02-06] MEDS ORDERED: MIDAZOLAM 2 MG/2 ML INJ ONE (11:27)
[2018-02-06] MEDS ORDERED: FENTANYL CITRATE INJ/PF 100 MCG/2 ML AMPUL ONE (11:27)
[2018-02-06] MEDS ORDERED: PROPOFOL INJ 200 MG/20 ML VIAL IV ONE (11:28)
[2018-02-06] MEDS ORDERED: ACETAMINOPHEN 1,000 MG/100 ML RTUPB IV ONE (11:28)
[2018-02-06] MEDS ORDERED: IPRATROPIUM/ALBUTEROL 0.5-2.5 MG/3 ML AMPUL NEB ONE ×4 (11:32→14:09)
[2018-02-06] MEDS ORDERED: CYCLOBENZAPRINE HCL 10 MG TABLET PO PRN (12:26)
[2018-02-06] MEDS ORDERED: MEPERIDINE HCL/PF INJ 25 MG/1 ML DISP.SYRIN IV PRN (12:49)
[2018-02-06] MEDS ORDERED: PROMETHAZINE HCL INJ 25 MG/1 ML VIAL IV PRN ×2 (12:49)
[2018-02-06] MEDS ORDERED: FENTANYL CITRATE INJ/PF 100 MCG/2 ML AMPUL IV PRN ×3 (12:49)
[2018-02-06] MEDS ORDERED: DIPHENHYDRAMINE HCL 50 MG/ML VIAL IV PRN (12:49)
[2018-02-06] MEDS ORDERED: BESIFLOXACIN HCL 0.6% OPH SUSP 5 ML BOTTLE OP SCH (13:00)
[2018-02-06] MEDS ORDERED: KETOROLAC TROMETHAMINE 60 MG/2 ML SDV ONE (13:32)
--- NOTE | 2018-02-06 13:33 | Operative Report ---
Operative Report DATE OF SURGERY: 02/06/18 PREOPERATIVE DIAGNOSIS: 1. Acute cholecystitis with cholelithiasis. 2. Steroid dependent COPD POSTOPERATIVE DIAGNOSIS: Same OPERATION: Laparoscopic cholecystectomy with drain placement SURGEON: DEEJAY PIMENTEL ANESTHESIA: GA TISSUE REMOVED OR ALTERED: 1 gallbladder COMPLICATIONS: None ESTIMATED BLOOD LOSS: 70 cc INTRAOPERATIVE FINDINGS: See below PROCEDURE: After obtaining informed consent, the patient was taken to the operating room. General Anesthesia was induced; the arms were extended, and the abdomen was exposed, and prepped and draped in a sterile fashion. Instrumentation was set up for laparoscopic cholecystectomy. Surgical plan and surgical timeout were conducted. A vertical incision was made above the umbilicus, and a verres needle was inserted uneventfully into the peritoneal cavity. Pneumoperitoneum was established. The verres needle was removed and a 5 mm trocar was inserted and a 5 mm flexible laparoscope was inserted. Visualization of the peritoneal cavity confirmed safe uneventful entry. Under direct visualization 3 additional 5 mm ports were established, one in the subxiphoid position and second in the subcostal position. There is a candidate for a distended gallbladder consistent with cholecystitis. There was no pus, bile, or significant inflammatory peel. The gallbladder was aspirated with the laparoscopic trocar of approximately 60 cc of bile. We began taking the gallbladder down from the top because of the large size of the gallbladder. We did get into some venous bleeding from the liver which required compression treatment with several pieces of Surgicel. We therefore then changed our graspers around and began dissecting out the infundibulum of the gallbladder. There was a significant amount of redundant fatty tissue in the gentle suction and electrocautery dissection. Now opened up the the neck of the gallbladder and junction with the cystic duct was dissected out. The Cystic artery was in its usual location medial and cephalad to the cystic duct. The cystic artery was surrounded with a right angle clamp, clipped twice proximally and divided with laparoscopic scissors. We now opened the triangle of Calot by dividing the peritoneal reflection on both the medial and lateral sides of the cystic duct infundibular junction. The critical view was obtained. We now milked the cystic duct of any possible stones, clipped the cystic duct approximately 2 times once distally and divided with scissors. The gallbladder was now removed from the undersurface of the liver using hook cautery dissection. Graspers were repositioned and the gallbladder was removed uneventfully from the abdominal cavity through the super umbilical port site incision. The specimen was examined, then passed off to pathology for permanent analysis. We returned to the peritoneal cavity check for bleeding, and evidence of bile leak, and there was none. We Confirmed satisfactory placement of clips on cystic duct and cystic artery were secured . At this point we felt the operation was complete. The subcutaneous tissue was then anesthetized with quarter percent Marcaine Sponge and needle counts are correct. A large Porter drain was placed through 1 of the right subcostal port site incisions and secured to the skin with 2-0 Prolene suture. It was hooked to bulb suction and function satisfactorily. The end of the drain was placed in the sub-hepatic space. All ports removed under direct visualization pneumoperitoneum evacuated , and the supraumbilical site closed with 0 Vicryl and the remaining incisions closed with Vicryl 3-0 suture, benzoin and Steri-Strips. The patient was extubated, and taken to the recovery room in stable condition.
[2018-02-06] MEDS: FENTANYL CITRATE INJ/PF 100 MCG/2 ML AMPUL ONE ×4 (13:43→13:54)
[2018-02-06] MEDS ORDERED: RACEPINEPHRINE HCL 2.25% NEB 0.5 ML AMPUL NEB ONE (14:09)
--- NOTE | 2018-02-06 14:45 | RADIOLOGY REPORT (SQ) ---
EXAM DESCRIPTION: CHEST SINGLE VIEW COMPLETED DATE/TIME: 02/06/2018 2:22 pm REASON FOR STUDY: respiratory distress COMPARISON: AP chest 02/06/2018, 02/01/2018, 10/06/2017 EXAM PARAMETERS: NUMBER OF VIEWS: One view. TECHNIQUE: Single frontal radiographic view of the chest acquired. RADIATION DOSE: NA LIMITATIONS: None. FINDINGS: LUNGS AND PLEURA: Bandlike atelectasis or scarring at the left lateral costophrenic sulcus . Calcified granuloma right lung base. No acute infiltrates. No pleural effusion or pneumothorax. MEDIASTINUM AND HILAR STRUCTURES: No masses. Contour normal. HEART AND VASCULAR STRUCTURES: Heart normal in size. Normal vasculature. BONES: No acute findings. HARDWARE: None in the chest. OTHER: No other significant finding. IMPRESSION: No acute finding TECHNICAL DOCUMENTATION: JOB ID: [id number] [employer]- All Rights Reserved Reading location - IP/workstation name: [email or web address]
[2018-02-06] MEDS ORDERED: (PENDING PHARMACY ID) (Difluprednate [Durezol] 1 DROP) OS SCH (18:00)
--- NOTE | 2018-02-06 19:13 | PDOC H&P ---
History of Present Illness Admission Date/PCP: 02/06/18 11:00 MARIANGEL BROWN DO History of Present Illness: DOE FUNG is a 77 year old female who was recently discharged after a workup for chest pain which was negative. She comes back in because her symptoms are persistent. She been having some intermittent right upper quadrant pain that been lasting 10-15 minutes at a time. She says she had an episode earlier that lasted much longer which is why she came in. She also had a leukocytosis but her lab evaluation was normal, including a normal right upper quadrant ultrasound with the exception of some gallstones. She was seen by surgery who thought that all of this is from her gallbladder and was planning to take her to the OR for cholecystectomy. Our service was consulted for admission. She has some chronic medical problems but nothing that is acutely exacerbated. Past Medical History Cardiac Medical History: Reports: Hyperlipidema, Hypertension Denies: Myocardial Infarction Pulmonary Medical History: Reports: Asthma, Chronic Obstructive Pulmonary Disease (COPD), Sleep Apnea Neurological Medical History: Denies: Seizures Endocrine Medical History: Reports: Diabetes Mellitus Type 2, Hyperthyroidism Denies: Diabetes Mellitus Type 1, Hypothyroidism Renal/ Medical History: Denies: End Stage Renal Disease Malignancy Medical History: Reports: Skin Cancer GI Medical History: Reports: Gastroesophageal Reflux Disease Denies: Cirrhosis, Hepatitis, Hiatal Hernia Musculoskeltal Medical History: Denies: Arthritis, Gout Skin Medical History: Denies: Psoriasis Psychiatric Medical History: Reports: Bipolar Disorder, Depression - anxiety Hematology: Denies: Anemia, Sickle Cell Disease Infectious Medical History: Denies: Clostridium Difficile Past Surgical History Past Surgical History: Reports: Appendectomy, 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, Hysterectomy, Other - orif l WRIST Denies: Amputation, Mastectomy, Pacemaker Social History Smoking Status: Former Smoker Last Time Smoked: 2 YRS AGO Frequency of Alcohol Use: None Hx Recreational Drug Use: No Drugs: None Hx Prescription Drug Abuse: No - Advance Directive Resuscitation Status: Full Code Family History Family History: CAD, DM, Hyperlipidemia, Hypertension, Malignancy - SKIN Parental Family History Reviewed: No - Noncontributory Children Family History Reviewed: No Sibling(s) Family History Reviewed.: No - Noncontributory noncontributory Medication/Allergy Home Medications: Albuterol Sulfate [Proair HFA] 2 puff IH Q6HP PRN 07/24/17 Lamotrigine [Lamictal] 50 mg PO DAILY 07/24/17 Losartan Potassium 50 mg PO DAILY 07/24/17 Omeprazole 20 mg PO DAILY 07/24/17 Bromfenac Sodium [Prolensa] 1 drop OS DAILY 01/12/18 Difluprednate [Durezol] 1 drop OS BID 01/12/18 Glycopyrrol/Nebulizer/Accessor [[place] Magnair 25 Mcg Starter] 25 mcg IH BID Mepolizumab [Nucala] 100 mg SQ Q28D PRN 01/12/18 Albuterol Sulfate [Ventolin 0.083% Neb 2.5 mg/3 mL Ampul] 1 vial NEB RTQ8HP PRN 02/01/18 Budesonide/Formoterol Fumarate [Symbicort HFA 160-4.5 mcg Inhaler 6 gm] 2 puff IH Q12 02/01/18 Cyclobenzaprine HCl [Flexeril 5 mg Tablet] 5 mg PO TIDP PRN 02/01/18 Epinephrine [Epipen 2-Mega] 0.3 mg IM ASDIR PRN 02/01/18 Hydrochlorothiazide [Hydrodiuril 12.5 mg Tablet] 12.5 mg PO QAM 02/01/18 Lurasidone HCl [Latuda 60 mg Tablet] 60 mg PO QPM 02/01/18 Methimazole [Tapazole 5 mg Tablet] 5 mg PO DAILY 02/01/18 Montelukast Sodium [Singulair 10 mg Tablet] 10 mg PO QHS 02/01/18 Olopatadine HCl [Pazeo] 1 drop OU DAILY 02/01/18 Prednisone [Deltasone 10 mg Tablet] 10 mg PO Q12 02/01/18 Metoprolol Succinate 100 mg PO DAILY #30 tab.er.24h 02/02/18 Ipratropium [place] [Atrovent 0.06% Nasal [place]] 2 spray NASL TIDP PRN 02/06/18 Allergies/Adverse Reactions: cephalexin [From Keflex] Allergy (Verified 02/02/18 12:45) morphine Allergy (Verified 02/02/18 12:45) sulfamethoxazole [From Bactrim] Allergy (Verified 02/02/18 12:45) trimethoprim [From Bactrim] Allergy (Verified 11/20/18 12:45) Review of Systems All systems: reviewed and no additional remarkable complaints except as stated - 10 point review of systems was conducted for the patient was negative except as noted above Physical Exam Vital Signs: Temp Pulse Resp BP Pulse Ox 98.5 F 82 17 117/51 L 100 02/06/18 14:55 02/06/18 16:22 02/06/18 18:10 02/06/18 18:10 02/06/18 18:10 Intake & Output 02/05/18 02/06/18 02/07/18 06:59 06:59 06:59 Intake Total 2950 Balance 2950 Weight 108 kg General appearance: PRESENT: no acute distress, cooperative, disheveled, morbidly obese Head exam: PRESENT: atraumatic, normocephalic Eye exam: PRESENT: EOMI, PERRLA. ABSENT: conjunctival injection, nystagmus, scleral icterus Ear exam: PRESENT: normal external ear exam Mouth exam: PRESENT: moist, neck supple Throat exam: ABSENT: post pharyngeal erythema Neck exam: PRESENT: full ROM. ABSENT: JVD, lymphadenopathy, meningismus, tenderness, thyromegaly Respiratory exam: PRESENT: clear to auscultation gisele, unlabored. ABSENT: accessory muscle use, rales, rhonchi, tachypnea, wheezes Cardiovascular exam: PRESENT: RRR, +S1, +S2. ABSENT: diastolic murmur, systolic murmur Pulses: PRESENT: normal carotid pulses, normal radial pulses Vascular exam: PRESENT: normal capillary refill GI/Abdominal exam: PRESENT: Beckford's sign, normal bowel sounds, soft. ABSENT: distended, guarding, rebound Rectal exam: PRESENT: deferred Extremities exam: PRESENT: full ROM. ABSENT: pedal edema Musculoskeletal exam: PRESENT: ambulatory, full ROM. ABSENT: deformity Neurological exam: PRESENT: alert, awake, oriented to person, oriented to place , oriented to time, CN II-XII grossly intact, normal gait. ABSENT: motor sensory deficit Psychiatric exam: PRESENT: appropriate affect, normal mood Skin exam: PRESENT: dry, warm Results Impressions: Abdomen Ultrasound 02/06/18 07:18 IMPRESSION: Gallstones without gallbladder wall thickening or pericholecystic fluid Fatty liver Chest X-Ray 02/06/18 14:10 IMPRESSION: No acute finding Assessment & Plan - Diagnosis (1) Symptomatic cholelithiasis Is this a current diagnosis for this admission?: Yes Plan: No evidence of cholecystitis on imaging. Plan is for her to go to the OR today for elective cholecystectomy. We will follow-up surgery recommendations postoperatively. - Time Time Spent: 50 to 70 Minutes - Inpatient Certification Based on my medical assessment, after consideration of the patient's comorbidities, presenting symptoms, or acuity I expect that the services needed warrant INPATIENT care.: Yes I certify that my determination is in accordance with my understanding of Medicare's requirements for reasonable and necessary INPATIENT services [42 CFR 412.3e].: Yes Medical Necessity: Need Close Monitoring Due to Risk of Patient Decompensation, Need for Surgery, Risk of Complication if Not Cared For in Hospital
[2018-02-06] MEDS: ACETAMINOPHEN 325 MG TABLET PO PRN (21:39)
[2018-02-06] MEDS: LURASIDONE HCL 60 MG TABLET PO SCH (21:39)
[2018-02-06] MEDS: BUDESONIDE/FORMOTEROL 160-4.5 MCG 60 PUFF/6 GM MDI IH SCH (21:40)
[2018-02-06] MEDS ORDERED: METOPROLOL SUCCINATE 50 MG TAB.SR.24H PO ONE (22:30)
[2018-02-06] MEDS ORDERED: MONTELUKAST SODIUM 10 MG TABLET PO ONE (23:00)
[2018-02-06] MEDS ORDERED: METHIMAZOLE 5 MG TABLET PO ONE (23:00)
[2018-02-07 04:20] LABS: HEMATOCRIT 35.3 % (36.0-47.0); HEMOGLOBIN 12.4 g/dL (12.0-15.5); MEAN CORPUSCULAR HEMOGLOBIN 32.1 pg (27.0-33.4); MEAN CORPUSCULAR VOLUME 92 fl (80-97); PLATELET COUNT 193 10^3/uL (150-450); RED BLOOD COUNT 3.85 10^6/uL (3.72-5.28); RED CELL DISTRIBUTION WIDTH 13.4 % (11.5-14.0); WHITE BLOOD COUNT 9.5 10^3/uL (4.0-10.5)
[2018-02-07 04:30] LABS: ALANINE AMINOTRANSFERASE 682 U/L (9-52); ALKALINE PHOSPHATASE 74 U/L (38-126); ANION GAP 8 (5-19); ASPARTATE AMINO TRANSFERASE 496 U/L (14-36); BILIRUBIN,DIRECT 0.2 mg/dL (0.0-0.4); BLOOD UREA NITROGEN 19 mg/dL (7-20); CALCIUM 8.6 mg/dL (8.4-10.2); CARBON DIOXIDE 26 mmol/L (22-30); CHLORIDE 105 mmol/L (98-107); GLUCOSE 113 mg/dL (75-110); POTASSIUM 4.4 mmol/L (3.6-5.0); SODIUM 139.2 mmol/L (137-145); TOTAL PROTEIN 5.2 g/dL (6.3-8.2)
[2018-02-07] MEDS: LANSOPRAZOLE 15 MG TAB.RAP.DR PO SCH (06:02)
--- NOTE | 2018-02-07 07:40 | PDOC PROGRESS REPORT ---
Subjective Progress Note for:: 02/07/18 Subjective:: Patient feels better, in the intensive care unit, no acute pulmonary issues at this time. Tolerating clear liquids. Reason For Visit: SYMPTOMATIC CHOLELITHIASIS Physical Exam Vital Signs: Temp Pulse Resp BP Pulse Ox 98.2 F 83 17 122/57 L 100 02/07/18 06:00 02/06/18 19:00 02/07/18 06:00 02/07/18 05:10 02/07/18 06:00 Intake & Output 02/06/18 02/07/18 02/08/18 06:59 06:59 06:59 Intake Total 2950 Output Total 700 Balance 2250 Weight 108 kg General appearance: PRESENT: no acute distress GI/Abdominal exam: PRESENT: soft - Appropriately tender; drain right subcostal area with sanguinous discharge; slightly yellow tinged material Results Laboratory Results: 02/07/18 04:01 02/07/18 04:01 02/07/18 02/07/18 04:01 04:01 WBC 9.5 RBC 3.85 Hgb 12.4 Hct 35.3 L MCV 92 MCH 32.1 MCHC 35.0 RDW 13.4 Plt Count 193 Sodium 139.2 Potassium 4.4 Chloride 105 Carbon Dioxide 26 Anion Gap 8 BUN 19 Creatinine 0.75 Est GFR ( Amer) > 60 Est GFR (Non-Af Amer) > 60 Glucose 113 H Calcium 8.6 Total Bilirubin 1.0 AST 496 H ALT 682 H Alkaline Phosphatase 74 Total Protein 5.2 L Albumin 3.0 L Impressions: Abdomen Ultrasound 02/06/18 07:18 IMPRESSION: Gallstones without gallbladder wall thickening or pericholecystic fluid Fatty liver Chest X-Ray 02/06/18 14:10 IMPRESSION: No acute finding Assessment & Plan - Diagnosis (1) Acute cholecystitis Is this a current diagnosis for this admission?: Yes Plan: Impression: Post operative day 1 status post laparoscopic cholecystectomy for acute cholecystitis with drain placement; postoperative course involve respiratory distress in the recovery room, likely exacerbation of COPD, now controlled with bronchodilators, fluid restriction. Recommendations: 1. Discontinue support line; transfer to floor 2. Leave drain in for now 3. Advance diet; possibly discharge home later today or tomorrow. (2) Steroid-dependent COPD Is this a current diagnosis for this admission?: Yes (3) COPD (chronic obstructive pulmonary disease) Qualifiers: COPD type: unspecified COPD Qualified Code(s): J44.9 - Chronic obstructive pulmonary disease, unspecified Is this a current diagnosis for this admission?: Yes (4) History of tobacco abuse Is this a current diagnosis for this admission?: Yes (5) Hypertension Qualifiers: Hypertension type: essential hypertension Qualified Code(s): I10 - Essential (primary) hypertension Is this a current diagnosis for this admission?: Yes
[2018-02-07] MEDS ORDERED: (PENDING PHARMACY ID) (Metoprolol Succinate [Metoprolol Succinate] 100 MG) PO SCH (10:00)
[2018-02-07] MEDS ORDERED: (PENDING PHARMACY ID) (Olopatadine Hcl [Pazeo] 1 DROP) OU SCH (10:00)
[2018-02-07] MEDS ORDERED: METOPROLOL SUCCINATE 50 MG TAB.SR.24H PO SCH ×2 (10:00→22:00)
[2018-02-07] MEDS ORDERED: METHIMAZOLE 5 MG TABLET PO SCH ×2 (10:00→22:00)
[2018-02-07] MEDS ORDERED: (PENDING PHARMACY ID) (Bromfenac Sodium [Prolensa] 1 DROP) OS SCH (10:00)
[2018-02-07] MEDS: HYDROCHLOROTHIAZIDE 12.5 MG TABLET PO SCH (10:17)
[2018-02-07] MEDS: PREDNISONE 10 MG TABLET PO SCH ×2 (10:18→21:48)
[2018-02-07] MEDS: BUDESONIDE/FORMOTEROL 160-4.5 MCG 60 PUFF/6 GM MDI IH SCH ×2 (10:18→21:48)
[2018-02-07] MEDS: LOSARTAN POTASSIUM 50 MG TABLET PO SCH (10:18)
[2018-02-07] MEDS: LAMOTRIGINE 100 MG TABLET PO SCH (10:24)
--- NOTE | 2018-02-07 14:50 | PDOC PROGRESS REPORT ---
Subjective Progress Note for:: 02/07/18 Subjective:: No adverse events overnight. She had surgery yesterday and she is feeling pretty good today. She was having a little trouble breathing after they extubated her postoperatively and so she was sent to the ICU for monitoring but she has had no trouble overnight. Her diet was advanced this morning and she had henning and eggs. Reason For Visit: SYMPTOMATIC CHOLELITHIASIS Physical Exam Vital Signs: Temp Pulse Resp BP Pulse Ox 97.6 F 71 23 H 137/68 H 100 02/07/18 07:58 02/07/18 07:58 02/07/18 09:00 02/07/18 08:10 02/07/18 08:10 Intake & Output 02/06/18 02/07/18 02/08/18 06:59 06:59 06:59 Intake Total 2950 700 Output Total 700 1700 Balance 2250 -1000 Weight 108 kg General appearance: PRESENT: no acute distress, cooperative, morbidly obese Respiratory exam: PRESENT: clear to auscultation gisele, symmetrical, unlabored. ABSENT: accessory muscle use, rales, rhonchi, tachypnea, wheezes Cardiovascular exam: PRESENT: RRR, +S1, +S2. ABSENT: diastolic murmur, systolic murmur Vascular exam: PRESENT: normal capillary refill GI/Abdominal exam: PRESENT: normal bowel sounds, soft. ABSENT: distended, guarding, rebound, tenderness Extremities exam: ABSENT: joint swelling, pedal edema Musculoskeletal exam: PRESENT: normal inspection. ABSENT: deformity Neurological exam: PRESENT: alert, awake, oriented to person, oriented to place , oriented to time Psychiatric exam: PRESENT: appropriate affect, normal mood Skin exam: PRESENT: dry, warm Results Laboratory Results: 02/07/18 04:01 02/07/18 04:01 02/07/18 02/07/18 04:01 04:01 WBC 9.5 RBC 3.85 Hgb 12.4 Hct 35.3 L MCV 92 MCH 32.1 MCHC 35.0 RDW 13.4 Plt Count 193 Sodium 139.2 Potassium 4.4 Chloride 105 Carbon Dioxide 26 Anion Gap 8 BUN 19 Creatinine 0.75 Est GFR ( Amer) > 60 Est GFR (Non-Af Amer) > 60 Glucose 113 H Calcium 8.6 Total Bilirubin 1.0 AST 496 H ALT 682 H Alkaline Phosphatase 74 Total Protein 5.2 L Albumin 3.0 L Impressions: Abdomen Ultrasound 02/06/18 07:18 IMPRESSION: Gallstones without gallbladder wall thickening or pericholecystic fluid Fatty liver Chest X-Ray 02/06/18 14:10 IMPRESSION: No acute finding Assessment & Plan - Diagnosis (1) Symptomatic cholelithiasis Is this a current diagnosis for this admission?: Yes Plan: Postop day #1 status post cholecystectomy. Appears to be doing well postoperatively. I anticipate that once she is cleared by surgery she should be able to go. There was some question about the character of the drainage from her NAIF drain that surgery wanted to monitor. - Time Time Spent with patient: 25-34 minutes
[2018-02-07] MEDS: LURASIDONE HCL 60 MG TABLET PO SCH (18:01)
[2018-02-07] MEDS: ACETAMINOPHEN 325 MG TABLET PO PRN (19:33)
[2018-02-07] MEDS ORDERED: MONTELUKAST SODIUM 10 MG TABLET PO SCH (22:00)
[2018-02-08] MEDS: LANSOPRAZOLE 15 MG TAB.RAP.DR PO SCH (06:01)
[2018-02-08] MEDS ORDERED: KETOROLAC TROMETHAMINE 10 MG TABLET PO PRN (06:15)
[2018-02-08] MEDS: BUDESONIDE/FORMOTEROL 160-4.5 MCG 60 PUFF/6 GM MDI IH SCH (11:00)
[2018-02-08] MEDS: LOSARTAN POTASSIUM 50 MG TABLET PO SCH (11:01)
[2018-02-08] MEDS: HYDROCHLOROTHIAZIDE 12.5 MG TABLET PO SCH (11:01)
[2018-02-08] MEDS: PREDNISONE 10 MG TABLET PO SCH (11:01)
[2018-02-08] MEDS: LAMOTRIGINE 100 MG TABLET PO SCH (11:01)
[2018-02-08 11:02] LABS: ABSOLUTE LYMPHOCYTES (AUTO) 1.6 10^3/uL (0.5-4.7); ABSOLUTE MONOCYTES (AUTO) 0.7 10^3/uL (0.1-1.4); ABSOLUTE NEUT (AUTO) 8.5 10^3/uL (1.7-8.2); BASOPHILS % (AUTO) 0.3 % (0-2); EOSINOPHILS % (AUTO) 0.2 % (0-6); HEMATOCRIT 35.6 % (36.0-47.0); HEMOGLOBIN 12.4 g/dL (12.0-15.5); LYMPHOCYTES % (AUTO) 14.6 % (13-45); MEAN CORPUSCULAR HEMOGLOBIN 32.1 pg (27.0-33.4); MEAN CORPUSCULAR HGB CONC 34.8 g/dL (32.0-36.0); MEAN CORPUSCULAR VOLUME 92 fl (80-97); MONOCYTES % (AUTO) 6.8 % (3-13); PLATELET COUNT 208 10^3/uL (150-450); RED BLOOD COUNT 3.86 10^6/uL (3.72-5.28); RED CELL DISTRIBUTION WIDTH 13.6 % (11.5-14.0); SEGMENTED NEUTROPHILS % (AUTO) 78.1 % (42-78); TOTAL CELLS COUNTED % (AUTO) 100 %; WHITE BLOOD COUNT 10.9 10^3/uL (4.0-10.5)
[2018-02-08 11:14] LABS: ALANINE AMINOTRANSFERASE 397 U/L (9-52); ALBUMIN 3.1 g/dL (3.5-5.0); ALKALINE PHOSPHATASE 65 U/L (38-126); ANION GAP 8 (5-19); ASPARTATE AMINO TRANSFERASE 90 U/L (14-36); BILIRUBIN,DIRECT 0.2 mg/dL (0.0-0.4); BILIRUBIN,TOTAL 0.6 mg/dL (0.2-1.3); BLOOD UREA NITROGEN 25 mg/dL (7-20); CARBON DIOXIDE 31 mmol/L (22-30); CHLORIDE 101 mmol/L (98-107); GLUCOSE 98 mg/dL (75-110); LIPASE 61.3 U/L (23-300); POTASSIUM 4.3 mmol/L (3.6-5.0); SODIUM 139.9 mmol/L (137-145); TOTAL PROTEIN 5.4 g/dL (6.3-8.2)
[2018-02-08 18:11] VITALS: BP 139/72
--- NOTE | 2018-02-09 18:16 | DISCHARGE SUMMARY E ---
Discharge Summary NAME: DOE FUNG : 1940 AGE: 77Y ADMITTED: 02/06/2018 DISCHARGED: 02/08/2018 FINAL DIAGNOSIS: Chronic cholecystitis and cholelithiasis. PROCEDURE DONE: Laparoscopic cholecystectomy, 02/06/2018. SURGEON: Dr. Castrejon [facility] COURSE: This is a 77-year-old female with intermittent right upper quadrant pain. She underwent an ultrasound of the gallbladder on 02/06/2018 that showed gallstones, but no definite evidence of acute cholecystitis. Because of off and on right upper quadrant pains, the patient was taken to the OR for laparoscopic cholecystectomy by Dr. Castrejon. There was some bleeding around the liver that was controlled during the procedure with cautery and Surgicel was also placed. Postoperatively, the patient did very well. Her liver enzymes were elevated on the first postop day, 02/07/2018, but on the day of discharge, they came down to almost normal. The patient was also able to eat regular food on the day of discharge. The patient also does not need anything stronger than Tylenol or ibuprofen on the day of discharge. She was discharged improved, to be followed up in the surgical clinic in 2 weeks. She was advised not to do any lifting more than 10-15 pounds for the next 2 weeks. FINAL DIAGNOSIS: Chronic cholecystitis and cholelithiasis. DICTATING PHYSICIAN: JOSIE GREY M.D. [id number] PHY#: [id number] ID: [id number] JOB#: [id number] ACCT: [id number] cc:Shaniqua FLANAGAN M.D. >
== END 2018-02-08 18:31 | disposition home or self-care (01) | DRG 419 ==
LOC: ER 06:11 → EH 11:00 → ICU 15:04 → 4N 02-07 14:00
PROVIDERS: ADMIT Internal Medicine; ATTEND Internal Medicine
PROC: 5A09457 Assistance with Respiratory Ventilation, 24-96 Consecutive Hours, Continuous Positive Airway Pressure (ICD-10-PCS; 2018-02-06)
PROC: 0FT44ZZ Resection of Gallbladder, Percutaneous Endoscopic Approach (ICD-10-PCS; principal; 2018-02-06 12:00)
DX: K80.10 Calculus of gallbladder with chronic cholecystitis without obstruction (principal); J44.9 Chronic obstructive pulmonary disease, unspecified; E78.00 Pure hypercholesterolemia, unspecified; I10 Essential (primary) hypertension; G47.30 Sleep apnea, unspecified; E11.9 Type 2 diabetes mellitus without complications; E05.90 Thyrotoxicosis, unspecified without thyrotoxic crisis or storm; K21.9 Gastro-esophageal reflux disease without esophagitis; F41.9 Anxiety disorder, unspecified; F31.9 Bipolar disorder, unspecified; Z79.51 Long term (current) use of inhaled steroids; Z85.828 Personal history of other malignant neoplasm of skin; Z95.1 Presence of aortocoronary bypass graft; Z87.891 Personal history of nicotine dependence; Z90.710 Acquired absence of both cervix and uterus; Z79.899 Other long term (current) drug therapy; Z88.6 Allergy status to analgesic agent; Z88.1 Allergy status to other antibiotic agents; Z88.3 Allergy status to other anti-infective agents; Z88.2 Allergy status to sulfonamides; Z82.49 Family history of ischemic heart disease and other diseases of the circulatory system; Z83.3 Family history of diabetes mellitus; Z80.8 Family history of malignant neoplasm of other organs or systems
CPT/HCPCS: 36415; 71045; 76705; 790; 80053; 81001; 82962; 83690; 84484; 85025; 85027; 87040; 88304; 93005; 93010; 94660; 96374; 96375; 99285; J0131; J0330; J1100; J1885; J2250; J2405; J2704; J3010; J3490; J7030; J7512; J7620

== ENCOUNTER 2018-04-01 09:04 | Day surgery (SDC) | payer MEDICARE, MEDICAID ==
[2018-04-01] MEDS ORDERED: MIDAZOLAM 2 MG/2 ML INJ ONE (09:20)
[2018-04-01] MEDS: TETRACAINE HCL 0.5% OPH SOLN 4 ML OD PRN ×3 (09:51→10:25)
[2018-04-01] MEDS: CYCLOPENTOLATE 0.2%/PHENYLEPHRINE 1% OPH SOLN 2 ML OD PRN ×3 (09:52→10:13)
[2018-04-01] MEDS: BESIFLOXACIN HCL 0.6% OPH SUSP 5 ML BOTTLE OD PRN ×3 (09:52→10:51)
[2018-04-01] MEDS: TROPICAMIDE 1% OPH SOLN 3 ML OD PRN ×3 (09:52→10:13)
[2018-04-01] MEDS: KETOROLAC TROMETHAMINE 0.45% 4 DROP/0.4 ML DROPERETTE OD PRN ×2 (09:53→10:54)
[2018-04-01] MEDS ORDERED: EPINEPHRINE INJ/PF 1 MG/1 ML AMPULE ONE (09:55)
[2018-04-01] MEDS ORDERED: CHONDR SU A NA/HYALUR INTRAOC KIT (SURGICARE) ONE (09:57)
[2018-04-01] MEDS ORDERED: LIDOCAINE 1%/PHENYLEPHRINE 1.5% 1 ML VIAL ONE (09:57)
--- NOTE | 2018-04-01 21:42 | [facility] OPERATIVE REPORT E ---
[facility] Operative Report NAME: DOE FUNG AGE: 77Y DATE OF SURGERY: 04/01/2018 ROOM: PREOPERATIVE DIAGNOSIS: CATARACT, RIGHT EYE. POSTOPERATIVE DIAGNOSIS: CATARACT, RIGHT EYE. OPERATION: Cataract extraction with insertion of an IOL of the right eye. SURGEON: SLOAN UBRRELL M.D. ANESTHESIA: Topical. PROCEDURE: After obtaining appropriate consent, the patient's right eye was prepped and draped in sterile fashion as well as the surgeon in a sterile manner and cataract surgery was started. First a paracentesis blade was used to make a side-port incision. Viscoelastic was used to inflate the anterior chamber. Next a 2.4 mm incision was made with a 2.4 mm blade, clear corneal temporally. A continuous capsulorrhexis was made using a cystotome and Utrata forceps. Following this hydrodissection was carried out to make the lens fully loose and mobile and it was rotated 90 degrees. Following this, a xfjpkb-lph-wyxetsn technique was used to phacoemulsify the lens with a CDE of 8.34. The remaining cortex was removed with irrigation/aspiration. Provisc was instilled into the capsular bag to inflate the bag. A SN60WF, 19.0 diopter lens was placed. The remaining viscoelastic material was removed with irrigation/aspiration. Following this, the incision was found to be watertight. Besivance was instilled into the eye and a protective shield was placed over the eye. The patient returned to the postoperative recovery in stable condition. DICTATING PHYSICIAN: SLOAN BURRELL M.D. [id number] PHY#: [id number] ID: [id number] JOB#: [id number] ACCT: [id number] cc:SLOAN BURRELL M.D. >
--- NOTE | 2018-04-01 21:47 | [facility] DISCHARGE SUMMARY E ---
[facility] Discharge Summary NAME: DOE FUNG AGE: 77Y ADMITTED: 04/01/2018 DISCHARGED: 04/01/2018 HOSPITAL COURSE: This is a 77-year-old female who underwent cataract extraction of the right eye. DIAGNOSIS: CATARACT, RIGHT EYE. She underwent surgery because she was having trouble seeing small print. DISCHARGE INSTRUCTIONS: She should be on a regular diet. No bending at her waist, no heavy lifting. She should use her Besivance, PROLENSA, and Durezol at 3 p.m. and 8 p.m. and sleep with a rigid shield. I will see her for her 1 day postoperative tomorrow. DICTATING PHYSICIAN: SLOAN BURRELL M.D. [id number] PHY#: [id number] ID: [id number] JOB#: [id number] ACCT: [id number] cc:SLOAN BURRELL M.D. >
== END 2018-04-01 11:34 | disposition home or self-care (01) ==
LOC: SC 09:04
PROVIDERS: ATTEND Internal Medicine
DX: H25.811 Combined forms of age-related cataract, right eye (principal); H10.45 Other chronic allergic conjunctivitis; Z96.1 Presence of intraocular lens; J45.909 Unspecified asthma, uncomplicated; I10 Essential (primary) hypertension; M19.90 Unspecified osteoarthritis, unspecified site; K21.9 Gastro-esophageal reflux disease without esophagitis; R06.02 Shortness of breath; Z79.51 Long term (current) use of inhaled steroids; Z88.2 Allergy status to sulfonamides; Z79.899 Other long term (current) drug therapy
CPT/HCPCS: 66984; V2632; J2250; J3490 ×2; A9270; J0171; J2370; 142

== ENCOUNTER 2018-04-23 19:50 | Emergency (ER) | payer MEDICARE, MEDICAID ==
[2018-04-23] MEDS ORDERED: LIDOCAINE 5% (700 MG) TRANSDERMAL ADH..PATCH TP ONE (22:40)
[2018-04-23] MEDS ORDERED: HYDROCODONE/ACETAMINOPHEN 5-325 MG (6 TAB/ER DISP) PO PRN (22:40)
--- NOTE | 2018-04-23 22:42 | ER Document Report ---
ED Extremity Problem, Lower - General Chief Complaint: Leg Pain Stated Complaint: LEG PAIN Time Seen by Provider: 04/23/18 22:30 Primary Care Provider: MARIANGEL BROWN DO [Primary Care Provider] - Follow up as needed Notes: Patient is a 78-year-old female that comes to the emergency department for chief complaint of right lower extremity pain, pain is mainly around the calf area extending up to the knee, she has noticed this increasingly over the past couple of days. She denies injury or history of the same. She denies smoking, recent surgery, recent travel, or history of blood clots. Her mother has had blood clots. She denies fever or chills. She denies any other complaints. Daughter at bedside. TRAVEL OUTSIDE OF THE [place] IN LAST 30 DAYS: No - Related Data Allergies/Adverse Reactions: cephalexin [From Keflex] Allergy (Verified 04/23/18 22:50) morphine Allergy (Verified 04/23/18 22:50) sulfamethoxazole [From Bactrim] Allergy (Verified 04/23/18 22:50) trimethoprim [From Bactrim] Allergy (Verified 04/23/18 22:50) Past Medical History - General Information source: Patient - Social History Smoking Status: Never Smoker Frequency of alcohol use: None Drug Abuse: None Lives with: Family Family History: CAD, DM, Hyperlipidemia, Hypertension, Malignancy - SKIN - Past Medical History Cardiac Medical History: Reports: Hx Hypercholesterolemia, Hx Hypertension Denies: Hx Heart Attack Pulmonary Medical History: Reports: Hx Asthma, Hx COPD, Hx Sleep Apnea Neurological Medical History: Denies: Hx Cerebrovascular Accident, Hx Seizures Endocrine Medical History: Reports: Hx Diabetes Mellitus Type 2, Hx Hyp erthyroidism. Denies: Hx Diabetes Mellitus Type 1, Hx Hypothyroidism Renal/ Medical History: Denies: Hx End Stage Renal Disease, Hx Peritoneal Dialysis Malignancy Medical History: Reports: Hx Skin Cancer GI Medical History: Reports: Hx Gastroesophageal Reflux Disease, Hx Ulcer - 1970. 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 Denies: Hx Mastectomy, Hx Open Heart Surgery, Hx Pacemaker Review of Systems - Review of Systems Constitutional: No symptoms reported EENT: No symptoms reported Cardiovascular: No symptoms reported Respiratory: No symptoms reported Gastrointestinal: No symptoms reported Genitourinary: No symptoms reported Female Genitourinary: No symptoms reported Musculoskeletal: See HPI Skin: No symptoms reported Hematologic/Lymphatic: See HPI Neurological/Psychological: No symptoms reported Physical Exam - Vital signs Vitals: Temp Pulse Resp BP Pulse Ox 98.9 F 100 19 144/69 H 97 04/23/18 20:06 04/23/18 20:06 04/23/18 20:06 04/23/18 20:06 04/23/18 20:06 - Notes Notes: GENERAL: Alert, interacts well. No acute distress. HEAD: Normocephalic, atraumatic. EYES: Pupils equal, round, and reactive to light. Extraocular movements intact. ENT: Oral mucosa moist, tongue midline. Oropharynx unremarkable. Airway patent. Nares patent, no nasal septal hematoma, TM's intact. NECK: Full range of motion. Supple. Trachea midline. LUNGS: Clear to auscultation bilaterally, no wheezes, rales, or rhonchi. No respiratory distress. HEART: Regular rate and rhythm. No murmur ABDOMEN: Soft, non-tender. Non-distended. Bowel sounds present in all 4 quadrants. GENITOURINARY: Deferred EXTREMITIES: There is 1+ pitting edema in the right lower extremity, there is generalized pain over the calf, no erythema, abnormal heat, or notable t enderness. Unremarkable knee, ankle, hip exams. Normal distal neurovascular exam. BACK: no cervical, thoracic, lumbar midline tenderness. No saddle anesthesia, normal distal neurovascular exam. NEUROLOGICAL: Alert and oriented x3. Normal speech. [cranial nerves II through XII grossly intact]. PSYCH: Normal affect, normal mood. SKIN: Warm, dry, normal turgor. No rashes or lesions noted. Course - Re-evaluation Re-evalutation: Patient does not have many risk factors for blood clot but she does have unilateral lower extremity swelling with some edema. There is no evidence of infection at this time. Vital signs unremarkable. No other concerning reported symptoms. Unfortunately we do not have venous Doppler available at this time, this will be able to be performed in the morning, patient was given a prescription of this, patient states she is actually satisfied with this plan. Daughter is at bedside. Discussed details of this, follow-up, and return precautions. They state understanding and agreement. - Vital Signs Vital signs: Temp Pulse Resp BP Pulse Ox 98.9 F 100 19 144/69 H 97 04/23/18 20:06 04/23/18 20:06 04/23/18 20:06 04/23/18 20:06 04/23/18 20:06 Discharge - Discharge Clinical Impression: Right leg pain Condition: Stable Disposition: HOME, SELF-CARE Additional Instructions: The swelling of your lower leg on the right side is concerning for possible blood clot. Please perform the venous Doppler ultrasound test, follow the prescription provided to have this performed later today. You can take Tylenol for pain, take the pain medication provided instead of the Tylenol if needed. If you take all of the doses also take an [id number] stool softener to avoid constipation. I also recommend compression stockings to help with the swelling. Elevation can help. Follow-up with your primary care provider. Return immediately for any concerning or worsening symptoms including developing redness, severe swelling, fever, difficulty breathing, chest pain, or any other concerning or worsening symptoms. Forms: Follow-Up Outpatient Testing Referrals: MARIANGEL BROWN DO [Primary Care Provider] - Follow up as needed
[2018-04-23 23:37] VITALS: BP 140/71
== END 2018-04-23 22:58 | disposition home or self-care (01) ==
LOC: ER 19:50
DX: M79.661 Pain in right lower leg (principal); R60.0 Localized edema; I10 Essential (primary) hypertension; J44.9 Chronic obstructive pulmonary disease, unspecified; E11.9 Type 2 diabetes mellitus without complications; Z88.1 Allergy status to other antibiotic agents; Z88.5 Allergy status to narcotic agent
CPT/HCPCS: 99283; A9270

== ENCOUNTER 2018-04-24 09:55 | Emergency (ER) | payer MEDICARE, MEDICAID ==
[2018-04-24 10:02] VITALS: BP 138/68
--- NOTE | 2018-04-24 10:21 | ER Document Report ---
ED Medical Screen (RME) - General Chief Complaint: Leg Pain Stated Complaint: POSSIBLE BLOOD CLOT Time Seen by Provider: 04/24/18 10:11 Primary Care Provider: MARIANGEL BROWN DO [Primary Care Provider] - Follow up as needed Notes: Patient is a 78-year-old female that comes to the emergency department for chief complaint of right lower extremity pain, pain is mainly around the calf area extending up to the knee, she has noticed this increasingly over the past couple of days. She denies injury or history of the same. She denies smoking, recent surgery, recent travel, or history of blood clots. Her mother has had blood clots. She denies fever or chills. She denies any other complaints. Daughter at bedside. TRAVEL OUTSIDE OF THE [place] IN LAST 30 DAYS: No - Related Data Allergies/Adverse Reactions: cephalexin [From Keflex] Allergy (Verified 04/24/18 09:57) morphine Allergy (Verified 04/24/18 09:57) sulfamethoxazole [From Bactrim] Allergy (Verified 04/24/18 09:57) trimethoprim [From Bactrim] Allergy (Verified 04/24/18 09:57) Past Medical History - Past Medical History Cardiac Medical History: Reports: Hx Hypercholesterolemia, Hx Hypertension Denies: Hx Heart Attack Pulmonary Medical History: Reports: Hx Asthma, Hx COPD, Hx Sleep Apnea Neurological Medical History: Denies: Hx Cerebrovascular Accident, Hx Seizures Endocrine Medical History: Reports: Hx Diabetes Mellitus Type 2, Hx Hyperthyroidism. Denies: Hx Diabetes Mellitus Type 1, Hx Hypothyroidism Renal/ Medical History: Denies: Hx End Stage Renal Disease, Hx Peritoneal Dialysis Malignancy Medical History: Reports: Hx Skin Cancer GI Medical History: Reports: Hx Gastroesophageal Reflux Disease, Hx Ulcer - 1970. 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 Denies: Hx Mastectomy, Hx Open Heart Surgery, Hx Pacemaker Physical Exam - Vital signs Vitals: Temp Pulse Resp BP Pulse Ox 98.0 F 81 24 H 138/68 H 97 04/24/18 10:01 04/24/18 10:01 04/24/18 10:01 04/24/18 10:01 04/24/18 10:01 Course - Vital Signs Vital signs: Temp Pulse Resp BP Pulse Ox 98.0 F 81 24 H 138/68 H 97 04/24/18 10:01 04/24/18 10:01 04/24/18 10:01 04/24/18 10:01 04/24/18 10:01 Doctor's Discharge - Discharge Referrals: MARIANGEL BROWN DO [Primary Care Provider] - Follow up as needed
[2018-04-24] MEDS ORDERED: APIXABAN 5 MG TABLET PO ONE (10:22)
--- NOTE | 2018-04-24 10:28 | ER Document Report ---
ED Extremity Problem, Lower - General Chief Complaint: Leg Pain Stated Complaint: POSSIBLE BLOOD CLOT Time Seen by Provider: 04/24/18 10:11 Primary Care Provider: MARIANGEL FELIZ DO [Primary Care Provider] - Follow up as needed Mode of Arrival: Ambulatory Information source: Patient Notes: Patient is a 78-year-old female who comes to the emergency department with comp laints of right lower extremity pain for the last 3 days. She was seen in the emergency department and an outpatient venous Doppler was ordered. She had the study done this morning and it was read as positive for DVT. She was sent over to the emergency department for evaluation and treatment. Patient states that the pain is mainly around the calf area extending to the knee. She denies any trauma or injury. Patient denies any recent travel, recent surgery, smoking, history of DVT or PE, hormone use, history of malignancy. She states that her mother has had blood clots. Patient is able to ambulate despite the pain. TRAVEL OUTSIDE OF THE [place] IN LAST 30 DAYS: No - HPI Location: Leg Occurred: Other - 3 days ago Where: Home Onset/Duration: Sudden Quality of pain: Achy Severity: Mild Recent injury: No Associated symptoms: denies: Chest pain, Hurts to breath, Short of breath, Unable to bear weight, Weak Exacerbated by: Nothing Relieved by: Nothing - Related Data Allergies/Adverse Reactions: cephalexin [From Keflex] Allergy (Verified 04/24/18 10:15) morphine Allergy (Verified 04/24/18 10:15) sulfamethoxazole [From Bactrim] Allergy (Verified 04/24/18 10:15) trimethoprim [From Bactrim] Allergy (Verified 04/24/18 10:15) Past Medical History - General Information source: Patient - Social History Smoking Status: Never Smoker Chew tobacco use (# tins/day): No Frequency of alcohol use: None Drug Abuse: None Family History: CAD, DM, Hyperlipidemia, Hypertension, Malignancy - SKIN Patient has suicidal ideation: No Patient has homicidal ideation: No - Past Medical History Cardiac Medical History: Reports: Hx Hypercholesterolemia, Hx Hypertension Denies: Hx Heart Attack Pulmonary Medical History: Reports: Hx Asthma, Hx COPD, Hx Sleep Apnea Neurological Medical History: Denies: Hx Cerebrovascular Accident, Hx Seizures Endocrine Medical History: Reports: Hx Diabetes Mellitus Type 2, Hx Hyperthyroidism. Denies: Hx Diabetes Mellitus Type 1, Hx Hypothyroidism Renal/ Medical History: Denies: Hx End Stage Renal Disease, Hx Peritoneal Dialysis Malignancy Medical History: Reports: Hx Skin Cancer GI Medical History: Reports: Hx Gastroesophageal Reflux Disease, Hx Ulcer - 1970. 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 Denies: Hx Mastectomy, Hx Open Heart Surgery, Hx Pacemaker Review of Systems - Review of Systems Constitutional: No symptoms reported EENT: No symptoms reported Cardiovascular: No symptoms reported Respiratory: No symptoms reported Gastrointestinal: No symptoms reported Genitourinary: No symptoms reported Musculoskeletal: Muscle pain Skin: No symptoms reported Hematologic/Lymphatic: No symptoms reported Neurological/Psychological: No symptoms reported -: Yes All other systems reviewed and negative Physical Exam - Vital signs Vitals: Temp Pulse Resp BP Pulse Ox 98.0 F 81 24 H 138/68 H 97 04/24/18 10:01 04/24/18 10:01 04/24/18 10:01 04/24/18 10:04/24/18 10:01 - Notes Notes: PHYSICAL EXAMINATION: GENERAL: Well-appearing, well-nourished and in no acute distress. HEAD: Atraumatic, normocephalic. EYES: Pupils equal round and reactive to light, extraocular movements intact, conjunctiva are normal. ENT: Nares patent, oropharynx clear without exudates. Moist mucous membranes. NECK: Normal range of motion, supple without lymphadenopathy LUNGS: Breath sounds clear to auscultation bilaterally and equal. No wheezes rales or rhonchi. HEART: Regular rate and rhythm without murmurs Female : deferred Musculoskeletal: Normal range of motion, no pitting or edema. No cyanosis. Right calf tenderness to palpation. 2+ dorsalis pedis and posterior tibialis pulses. NEUROLOGICAL: Cranial nerves grossly intact. Normal speech. Normal sensory, motor exams PSYCH: Normal mood, normal affect. SKIN: Warm, Dry, normal turgor, no rashes or lesions noted. Course - Re-evaluation Re-evalutation: 04/24/18 10:26 I will start the patient on Eliquis. I will give her a dose of 10 mg in the emergency department and discharge her home with a prescription for tell 10 mg p.o. twice daily for 7 days. I told her she needs to follow-up with her primary care physician for a continuation of this medication. Patient follows up with Dr. Feliz. Patient denies any chest pain, shortness of breath, headache, head injury, falls. I told her to take the medication as directed, to return to the emergency department immediately if she begins having any chest pain, shortness of breath or has any trauma. I educated her about the risks and benefits of taking this medication. I told her that I will only give her a limited prescription and that she needs to follow-up with Dr. Feliz for continuation of this medication. Patient is agreeable with plan of care. - Vital Signs Vital signs: Temp Pulse Resp BP Pulse Ox 98.0 F 81 24 H 138/68 H 97 04/24/18 10:01 04/24/18 10:01 04/24/18 10:01 04/24/18 10:01 04/24/18 10:01 Discharge - Discharge Clinical Impression: DVT (deep venous thrombosis) Qualifiers: DVT location: lower extremity Affected thrombotic vein of extremity: unspecified vein of extremity Chronicity: acute Laterality: right Qualified Code(s): I82.401 - Acute embolism and thrombosis of unspecified deep veins of right lower extremity Condition: Good Disposition: HOME, SELF-CARE Instructions: DVT Outpatient Treatment ([facility]) Additional Instructions: Take the medication prescribed as directed. Follow-up with Dr. Feliz this week to obtain an additional prescription for continuation of this medication. Return to the emergency department immediately if you have any trauma, chest pain, shortness of breath. Prescriptions: Apixaban [Eliquis 5 mg Tablet] 10 mg PO BID 7 Days #28 tablet Referrals: MARIANGEL FELIZ DO [Primary Care Provider] - Follow up as needed
== END 2018-04-24 10:50 | disposition home or self-care (01) ==
LOC: ER 09:55
DX: I82.401 Acute embolism and thrombosis of unspecified deep veins of right lower extremity (principal); M79.604 Pain in right leg; E78.00 Pure hypercholesterolemia, unspecified; I10 Essential (primary) hypertension; E11.9 Type 2 diabetes mellitus without complications; Z79.02 Long term (current) use of antithrombotics/antiplatelets; Z95.1 Presence of aortocoronary bypass graft; Z88.3 Allergy status to other anti-infective agents; Z90.710 Acquired absence of both cervix and uterus
CPT/HCPCS: 99283; A9270

== ENCOUNTER → 2018-04-24 | Outpatient (CLI) | payer MEDICARE, MEDICAID ==
--- NOTE | 2018-04-24 12:09 | RADIOLOGY REPORT (SQ) ---
EXAM DESCRIPTION: VENOUS UNILATERAL LOWER COMPLETED DATE/TIME: 04/24/2018 10:04 am REASON FOR STUDY: right lower leg swelling COMPARISON: None. TECHNIQUE: Dynamic and static nassar scale and color images acquired of the right leg venous system. S elected spectral images acquired with additional compression and augmentation maneuvers. The contrala teral common femoral vein and saphenofemoral junction were also imaged. Images stored on PACS. LIMITATIONS: None. FINDINGS: COMMON FEMORAL: Normal phasicity, compression and augmentation. No visualized echogenic ma terial on nassar scale. No defects on color images. FEMORAL: Normal compression and augmentation. No visualized echogenic material on nassar scale. No defe cts on color images. POPLITEAL: Noncompressible popliteal vein with thrombus, consistent with DVT. CALF VESSELS: Lack of spontaneous and phasic flow or demonstration of normal Doppler color signal in the peroneal veins. GSV and SSV: Small saphenous is noncompressible. ANY DEEP VENOUS INSUFFICIENCY: Not evaluated. ANY EVIDENCE OF POPLITEAL CYST: No. OTHER: No other significant finding. CONTRALATERAL COMMON FEMORAL VEIN AND SAPHENOFEMORAL JUNCTION: Normal phasicity, compression and augmentation. No visualized echogenic material on nassar scale. No de fects on color images. IMPRESSION: 1. DVT right lower extremity involves the peroneal and popliteal veins. 2. SVT in the right lower extremity involves the small saphenous vein. Preliminary report was called by the technologist to the emergency department given the patient's ou t patient status. Patient sent directly to the ER for further management. TECHNICAL DOCUMENTATION: JOB ID: [id number] [employer]- All Rights Reserved Reading location - IP/workstation name: [email or web address]
== END ==
LOC: SP 08:56
DX: M79.89 Other specified soft tissue disorders (principal); I82.4Y1 Acute embolism and thrombosis of unspecified deep veins of right proximal lower extremity
CPT/HCPCS: 93971

== ENCOUNTER → 2018-04-26 | Outpatient (CLI) | payer MEDICARE, MEDICAID ==
--- NOTE | 2018-04-26 17:40 | RADIOLOGY REPORT (SQ) ---
EXAM DESCRIPTION: C SP 4 OR 5 VIEWS COMPLETED DATE/TIME: 04/26/2018 5:28 pm REASON FOR STUDY: NECK PAIN M54.2 CERVICALGIA COMPARISON: None. NUMBER OF VIEWS: Five views. TECHNIQUE: AP, lateral, obliques, swimmer's and odontoid radiographic images acquired of the cervica l spine. LIMITATIONS: None. FINDINGS: MINERALIZATION: Osteopenic ALIGNMENT: Anatomic. VERTEBRAE: Vertebral bodies of normal height. DISCS: Disc space loss of height at C5-6 with anterior osteophyte formation FORAMINA: Mild right C4-5 and C5-6 foraminal narrowing. Moderate left C3-4, mild left C5-6 and C6-7 foraminal narrowing. LATERAL AND POSTERIOR ELEMENTS: Multilevel facet arthropathy. HARDWARE: None in the spine. SOFT TISSUES: No masses or calcifications. Lung apices clear. OTHER: No other significant finding. IMPRESSION: Degenerative disc space loss of height at C5-6. Bilateral foraminal narrowing as above TECHNICAL DOCUMENTATION: JOB ID: [id number] [employer]- All Rights Reserved Reading location - IP/workstation name: [email or web address]
== END ==
LOC: OD 17:09
PROVIDERS: ATTEND Family Medicine
DX: M54.2 Cervicalgia (principal); M48.02 Spinal stenosis, cervical region
CPT/HCPCS: 72050

== ENCOUNTER → 2018-05-15 | Outpatient (CLI) | payer MEDICARE, MEDICAID ==
[2018-05-19 07:14] LABS: ANTICARDIOLIPIN IGA AB <9 APL U/mL (0-11); ANTICARDIOLIPIN IGG AB <9 GPL U/mL (0-14); ANTICARDIOLIPIN IGM AB <9 MPL U/mL (0-12); ANTITHROMBIN III ACTIVITY 241 % (75-135)
== END ==
LOC: OD 11:25
PROVIDERS: ATTEND Family Medicine
DX: I82.401 Acute embolism and thrombosis of unspecified deep veins of right lower extremity (principal); M54.2 Cervicalgia
CPT/HCPCS: 36415; 81240; 85300; 86147

== ENCOUNTER 2018-07-16 04:47 | Emergency (ER) | payer MEDICARE, MEDICAID ==
[2018-07-16] MEDS ORDERED: LIDOCAINE 0.5%/EPINEPHRINE INJ 50 ML VIAL INJ ONE (05:24)
--- NOTE | 2018-07-16 05:59 | RADIOLOGY REPORT (SQ) ---
EXAM DESCRIPTION: XR TIBIA FIBULA 2 VIEWS COMPLETED DATE/TME: 07/16/2018 05:24 CLINICAL HISTORY: 78 years, Female, pain/trauma COMPARISON: None. NUMBER OF VIEWS: 2 TECHNIQUE: 2 view left tibia fibula LIMITATIONS: None. FINDINGS: Osteopenia. Negative for fracture or dislocation. No radiopaque foreign body IMPRESSION: No acute osseous abnormality copyright 2010 [employer]- All Rights Reserved
--- NOTE | 2018-07-16 07:10 | ER Document Report ---
HPI - HPI Patient complains to provider of: Laceration Time Seen by Provider: 07/16/18 05:24 Pain Level: 4 Context: Patient is a 78-year-old female presents to the emergency department for laceration to the distal aspect of her left lower leg. Patient states she typically has a cupful of water in her bathroom. States she got up to use the restroom and the lights were off. States she accidentally hit the cup and it hit her left distal sosa. States initially she thought nothing of it until she turned the light on and saw "so much blood." Patient states she is on Eliquis and was unable to get the wound to stop bleeding which is why she presents to the emergency room. Patient denies any other injuries. Patient has placed a piece of gauze and a pressure dressing to her left distal lower extremity. - MUSCULOSKELETAL Musculoskeletal: REPORTS: Extremity pain - left leg Past Medical History - General Information source: Patient, Relative - Social History Smoking Status: Unknown if Ever Smoked Family History: CAD, DM, Hyperlipidemia, Hypertension, Malignancy - SKIN Patient has suicidal ideation: No Patient has homicidal ideation: No - Past Medical History Cardiac Medical History: Reports: Hx Hypercholesterolemia, Hx Hypertension Denies: Hx Heart Attack Pulmonary Medical History: Reports: Hx Asthma, Hx COPD, Hx Sleep Apnea Neurological Medical History: Denies: Hx Cerebrovascular Accident, Hx Seizures Endocrine Medical History: Reports: Hx Diabetes Mellitus Type 2, Hx Hyperthyroidism. Denies: Hx Diabetes Mellitus Type 1, Hx Hypothyroidism Renal/ Medical History: Denies: Hx End Stage Renal Disease, Hx Peritoneal Dialysis Malignancy Medical History: Reports: Hx Skin Cancer GI Medical History: Reports: Hx Gastroesophageal Reflux Disease, Hx Ulcer - 1970. 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 Denies: Hx Mastectomy, Hx Open Heart Surgery, Hx Pacemaker Vertical Provider Document - CONSTITUTIONAL Agree With Documented VS: Yes Notes: GENERAL: Alert, interacts well. No acute distress. HEAD: Normocephalic, atraumatic. EYES: Pupils equal, round, and reactive to light. Extraocular movements intact. ENT: Oral mucosa moist, tongue midline. NECK: Full range of motion. Supple. Trachea midline. LUNGS: Clear to auscultation bilaterally, no wheezes, rales, or rhonchi. No respiratory distress. HEART: Regular rate and rhythm. No murmur ABDOMEN: Soft, non-tender. Non-distended. Bowel sounds present in all 4 quadrants. EXTREMITIES: Moves all 4 extremities spontaneously. No edema, normal radial and dorsalis pedis pulses bilaterally. No cyanosis. 5 out of 5 strength all 4 extremities. BACK: no cervical, thoracic, lumbar midline tenderness. No saddle anesthesia, normal distal neurovascular exam. NEUROLOGICAL: Alert and oriented x3. Normal speech. cranial nerves II through XII grossly intact PSYCH: Normal affect, normal mood. SKIN: Warm, dry, normal turgor. Laceration noted distal left lower extremity, see procedure note. - INFECTION CONTROL TRAVEL OUTSIDE OF THE [place] IN LAST 30 DAYS: No Course - Re-evaluation Re-evalutation: 07/16/18 07:10 Patient's physical exam did elicit pain upon palpation of her tibia. X-rays ordered. No signs of acute fracture seen. Patient's laceration was repaired successfully, patient tolerated well no complications. See procedure note for details. Patient stable for discharge 07/16/18 07:14 Tetanus immunization up-to-date. - Vital Signs Vital signs: Temp Pulse Resp BP Pulse Ox 97.8 F 75 18 133/69 H 92 07/16/18 04:54 07/16/18 04:54 07/16/18 04:54 07/16/18 04:54 07/16/18 04:54 Procedures - Laceration/Wound Repair Left leg Wound length (cm): 4 Wound's Depth, Shape: Superficial, Irregular, Contused tissue Laceration pre-procedure: Sterile PPE donned, Sterile drapes applied, Shur-Clens applied Anesthetic type: 1% Lidocaine w/epi Volume Anesthetic (mLs): 4 Wound explored: Clean, No foreign body removed Irrigated w/ Saline (mLs): 500 Wound Debrided: Minimal Wound Repaired With: Sutures Suture Size/Type: 4:0, Ethilon Number of Sutures: 7 Post-procedure wound care: Sterile dressing applied Post-procedure NV exam normal: Yes Complications: No Adult Front & Back picture: 1 - Laceration Discharge - Discharge Clinical Impression: Laceration Condition: Stable Disposition: HOME, SELF-CARE Instructions: Antibiotic Ointment Protection ([facility]), Laceration Care ([facility]), Soap Cleansing ([facility]) Additional Instructions: As we discussed you have been seen and treated in the emergency department for laceration to your left lower extremity. Your sutures do need to be removed in the next 10 to 14 days. Please follow-up with your primary care provider or return to the emergency room. Should you notice any redness, swelling, discharge around your suture site these may be signs of infection and you should return to the emergency room. Referrals: MARIANGEL BROWN DO [Primary Care Provider] - Follow up as needed
[2018-07-16 07:38] VITALS: BP 110/61
== END 2018-07-16 07:31 | disposition home or self-care (01) ==
LOC: ER 04:47
DX: S81.812A Laceration without foreign body, left lower leg, initial encounter (principal); W20.8XXA Other cause of strike by thrown, projected or falling object, initial encounter; Y92.002 Bathroom of unspecified non-institutional (private) residence as the place of occurrence of the external cause; E78.00 Pure hypercholesterolemia, unspecified; I10 Essential (primary) hypertension; J44.9 Chronic obstructive pulmonary disease, unspecified; Z95.1 Presence of aortocoronary bypass graft
CPT/HCPCS: 99283; 73590; 12002; J3490

== ENCOUNTER → 2018-08-03 | Outpatient (CLI) | payer MEDICARE, MEDICAID ==
--- NOTE | 2018-08-03 10:59 | RADIOLOGY REPORT (SQ) ---
EXAM DESCRIPTION: HIP LEFT AP/LATERAL COMPLETED DATE/TIME: 08/03/2018 10:45 am REASON FOR STUDY: LEFT HIP PAIN M54.41 LUMBAGO WITH SCIATICA, RIGHT SIDE COMPARISON: None. NUMBER OF VIEWS: Two views. TECHNIQUE: AP pelvis and additional frog-leg view of the left hip. LIMITATIONS: None. FINDINGS: MINERALIZATION: Normal. LEFT HIP: No acute fracture dislocation. There is subchondral sclerosis. There is mild joint space narrowing. RIGHT HIP: Advanced degenerative changes in the right hip with near complete loss of the joint space and subchondral sclerosis. Very slight remodeling of the femoral head. PUBIS AND ISCHIUM: No fracture. PELVIS: No fracture. SACRUM: No fracture or dislocation. No worrisome bone lesions. LOWER LUMBAR SPINE: No fracture or dislocation. No worrisome bone lesions. No significant disc disea se. SOFT TISSUES: No findings. OTHER: No other significant finding. IMPRESSION: Degenerative changes in both hips right greater than left. TECHNICAL DOCUMENTATION: JOB ID: [id number] [employer]- All Rights Reserved Reading location - IP/workstation name: [email or web address]
--- NOTE | 2018-08-03 11:00 | RADIOLOGY REPORT (SQ) ---
EXAM DESCRIPTION: LUMBAR SPINE COMPLETE COMPLETED DATE/TIME: 08/03/2018 10:45 am REASON FOR STUDY: LOW BACK PAIN WITH RIGHT SIDED SCIATICA; LEFT HIP PAIN M54.41 LUMBAGO WITH SCIATI CA, RIGHT SIDE COMPARISON: None. NUMBER OF VIEWS: Five views including obliques. TECHNIQUE: AP, lateral, oblique, and sacral radiographic images acquired of the lumbar spine. LIMITATIONS: None. FINDINGS: MINERALIZATION: Normal. SEGMENTATION: Normal. No transitional anatomy. ALIGNMENT: There is grade 1 anterolisthesis of L4 on L5. VERTEBRAE: There is approximately 40 to 50% loss of height at L1. No obvious retropulsion. DISCS: There is disc space narrowing at L1-L2, L2-L3, L3-L4 and L4-L5. POSTERIOR ELEMENTS: Pedicles and facets are intact. No pars defect or posterior arch defects. HARDWARE: None in the spine. PARASPINAL SOFT TISSUES: Normal. PELVIS: Intact as visualized. No fractures or worrisome bone lesions. SI joints intact. OTHER: No other significant finding. IMPRESSION: 1. 40 to 50% loss of height at L1. Correlation with MRI is recommended. The patient shannon y be a candidate for kyphoplasty. 2. Multilevel spondylosis. Grade 1 anterolisthesis of L4 on L5. TECHNICAL DOCUMENTATION: JOB ID: [id number] [employer]- All Rights Reserved Reading location - IP/workstation name: [email or web address]
== END ==
LOC: OD 10:22
PROVIDERS: ATTEND Family Medicine
DX: M54.41 Lumbago with sciatica, right side (principal); M47.896 Other spondylosis, lumbar region; M16.0 Bilateral primary osteoarthritis of hip; M25.552 Pain in left hip
CPT/HCPCS: 72110

== ENCOUNTER → 2018-12-17 | Outpatient (CLI) | payer MEDICARE, MEDICAID ==
--- NOTE | 2018-12-17 11:46 | RADIOLOGY REPORT (SQ) ---
EXAM DESCRIPTION: CHEST PA/LATERAL COMPLETED DATE/TIME: 12/17/2018 11:34 am REASON FOR STUDY: PRE-OP COMPARISON: None. EXAM PARAMETERS: NUMBER OF VIEWS: two views TECHNIQUE: Digital Frontal and Lateral radiographic views of the chest acquired. RADIATION DOSE: NA LIMITATIONS: none FINDINGS: LUNGS AND PLEURA: Unchanged calcified granulomata right lung base. Minimal linear bibasil ar opacities, likely atelectasis or scarring. No significant pleural effusion. No pneumothorax. MEDIASTINUM AND HILAR STRUCTURES: No masses or contour abnormalities. HEART AND VASCULAR STRUCTURES: Normal heart size. Atherosclerotic aorta. BONES: No acute findings. HARDWARE: None in the chest. OTHER: No other significant finding. IMPRESSION: Stable right basilar calcified granuloma. Minimal linear bibasilar opacities, likely at electasis or scarring. No other evidence of acute intrathoracic process. TECHNICAL DOCUMENTATION: JOB ID: [id number] [employer]- All Rights Reserved Reading location - IP/workstation name: [email or web address]
[2018-12-17 12:29] LABS: ABSOLUTE LYMPHOCYTES (AUTO) 1.6 10^3/uL (0.5-4.7); ABSOLUTE MONOCYTES (AUTO) 0.5 10^3/uL (0.1-1.4); ABSOLUTE NEUT (AUTO) 3.7 10^3/uL (1.7-8.2); BASOPHILS % (AUTO) 0.8 % (0-2); EOSINOPHILS % (AUTO) 0.7 % (0-6); HEMATOCRIT 40.7 % (36.0-47.0); HEMOGLOBIN 13.9 g/dL (12.0-15.5); LYMPHOCYTES % (AUTO) 26.7 % (13-45); MEAN CORPUSCULAR HGB CONC 34.1 g/dL (32.0-36.0); MEAN CORPUSCULAR VOLUME 91 fl (80-97); MONOCYTES % (AUTO) 8.8 % (3-13); PLATELET COUNT 244 10^3/uL (150-450); RED BLOOD COUNT 4.47 10^6/uL (3.72-5.28); RED CELL DISTRIBUTION WIDTH 13.3 % (11.5-14.0); TOTAL CELLS COUNTED % (AUTO) 100 %; WHITE BLOOD COUNT 5.9 10^3/uL (4.0-10.5)
[2018-12-17 12:45] LABS: APPEARANCE,URINE CLEAR; BILIRUBIN,URINE NEGATIVE (NEGATIVE); COLOR,URINE YELLOW; GLUCOSE, URINE NEGATIVE (NEGATIVE); KETONES,URINE NEGATIVE (NEGATIVE); LEUKOCYTE ESTERASE,URINE NEGATIVE (NEGATIVE); NITRITE,URINE NEGATIVE (NEGATIVE); PROTEIN,URINE NEGATIVE (NEGATIVE); URINE SPECIFIC GRAVITY 1.012; UROBILINOGEN,URINE NEGATIVE mg/dL (<2.0)
[2018-12-17 12:49] LABS: ANION GAP 7 (5-19); BLOOD UREA NITROGEN 13 mg/dL (7-20); CARBON DIOXIDE 27 mmol/L (22-30); CHLORIDE 99 mmol/L (98-107); GLUCOSE 96 mg/dL (75-110); POTASSIUM 4.5 mmol/L (3.6-5.0)
[2018-12-17 12:53] LABS: PREALBUMIN 19.5 mg/dL (17.6-36.0)
[2018-12-17 12:58] LABS: C-REACTIVE PROTEIN < 5.0 mg/L (<10.0)
[2018-12-17 13:12] LABS: ERYTHROCYTE SEDIMENTATION RATE 24 mm/hr (0-30)
--- NOTE | 2018-12-17 13:41 | EKG REPORT ---
SEVERITY:- NORMAL ECG - SINUS RHYTHM : Confirmed by: Kristin Vega MD 17-Dec-2018 13:40:13
== END ==
LOC: OD 11:05
PROVIDERS: ATTEND Orthopaedic Surgery
DX: Z01.810 Encounter for preprocedural cardiovascular examination (principal); Z01.812 Encounter for preprocedural laboratory examination; Z01.818 Encounter for other preprocedural examination; M16.10 Unilateral primary osteoarthritis, unspecified hip; I10 Essential (primary) hypertension; J84.10 Pulmonary fibrosis, unspecified
CPT/HCPCS: 36415; 71046; 80048; 81001; 82040; 82306; 84134; 85025; 85652; 86140; 93005; 93010

== ENCOUNTER → 2018-12-28 | Outpatient (CLI) | payer MEDICARE, MEDICAID ==
--- NOTE | 2018-12-28 09:59 | RADIOLOGY REPORT (SQ) ---
EXAM DESCRIPTION: VENOUS BILATERAL LOWER COMPLETED DATE/TIME: 12/28/2018 9:52 am REASON FOR STUDY: PAIN IN LEGS M79.669 PAIN IN UNSPECIFIED LOWER LEG COMPARISON: None. TECHNIQUE: Dynamic and static nassar scale and color images acquired of both lower extremity venous sy stems. Selected spectral images acquired with additional compression and augmentation maneuvers. Imag es stored on PACS. LIMITATIONS: None. FINDINGS: RIGHT LEG COMMON FEMORAL AND FEMORAL: Normal phasicity, compression and augmentation. No visualized echogenic m aterial on nassar scale. No defects on color images. POPLITEAL: Normal compression and augmentation. No visualized echogenic material on nassar scale. No de fects on color images. CALF VESSELS: Normal compression and augmentation. No visualized echogenic material on nassar scale. No defects on color image. GSV AND SSV: Normal compression. No visualized echogenic material on nassar scale. No defects on color images. ANY DEEP VENOUS INSUFFICIENCY: Not evaluated. ANY EVIDENCE OF POPLITEAL CYST: No. OTHER: No other significant finding. LEFT LEG COMMON FEMORAL AND FEMORAL: Normal phasicity, compression and augmentation. No visualized echogenic m aterial on nassar scale. No defects on color images. POPLITEAL: Normal compression and augmentation. No visualized echogenic material on nassar scale. No de fects on color images. CALF VESSELS: Normal compression and augmentation. No visualized echogenic material on nassar scale. No defects on color images. GSV AND SSV: Normal compression. No visualized echogenic material on nassar scale. No defects on color images. ANY DEEP VENOUS INSUFFICIENCY: Not evaluated. ANY EVIDENCE POPLITEAL CYST: No. OTHER: No other significant finding. IMPRESSION: 1. NO EVIDENCE DVT OR SVT IN EITHER LEG. TECHNICAL DOCUMENTATION: JOB ID: [id number] [employer]- All Rights Reserved Reading location - IP/workstation name: [email or web address]
== END ==
LOC: SP 08:38
PROVIDERS: ATTEND Orthopaedic Surgery
DX: M79.669 Pain in unspecified lower leg (principal)
CPT/HCPCS: 93970

== ENCOUNTER 2018-12-30 06:03 | Inpatient (IN) | payer MEDICARE, MEDICAID ==
[~2018-12-30 06:03] MED LIST changes: +ACETAMINOPHEN 325 MG TABLET PO PRN; +CELECOXIB 200 MG CAPSULE PO PRN; -KETOROLAC TROMETHAMINE 0.45% 4 DROP/0.4 ML DROPERETTE OS PRN; +LACTATED RINGERS 1000 ML IV PRN; +LIDOCAINE 0.5% INJ-PF (5 MG/ML) 50 ML SDV SUBCUT PRN; +ONDANSETRON HCL INJ/PF 4 MG/2 ML SDV IV PRN; +OXYCODONE HCL SR 10 MG TABLET PO PRN; +TRAMADOL HCL 50 MG TABLET PO PRN; +TRANEXAMIC ACID INJ/PF 1,000 MG/10 ML SDV IV PRN
[2018-12-30] MEDS ORDERED: ACETAMINOPHEN 325 MG TABLET ONE (09:25)
[2018-12-30] MEDS ORDERED: OXYCODONE HCL SR 10 MG TABLET PO ONE ×2 (09:25→09:35)
[2018-12-30] MEDS ORDERED: TRAMADOL HCL 50 MG TABLET ONE (09:25)
[2018-12-30] MEDS ORDERED: ONDANSETRON HCL INJ/PF 4 MG/2 ML SDV ONE ×2 (09:27→10:32)
[2018-12-30 09:30] LABS: INTERNATIONAL RATION (INR) 1.03; PROTHROMBIN TIME 13.5 SEC (11.4-15.4)
[2018-12-30 09:31] LABS: PARTIAL THROMBOPLASTIN TIME 27.2 SEC (23.5-35.8)
[2018-12-30] MEDS ORDERED: ACETAMINOPHEN 325 MG TABLET PO ONE (09:35)
[2018-12-30] MEDS ORDERED: ONDANSETRON HCL INJ/PF 4 MG/2 ML SDV IV ONE (09:35)
[2018-12-30] MEDS ORDERED: TRAMADOL HCL 50 MG TABLET PO ONE (09:35)
[2018-12-30] MEDS ORDERED: KETOROLAC TROMETHAMINE 60 MG/2 ML SDV ONE (10:00)
[2018-12-30] MEDS ORDERED: PHENYLEPHRINE HCL INJ/PF 10 MG/1 ML SDV ONE (10:00)
[2018-12-30] MEDS ORDERED: PROPOFOL INJ 200 MG/20 ML VIAL IV ONE (10:32)
[2018-12-30] MEDS ORDERED: DEXAMETHASONE SOD PHOSPHATE INJ 4 MG/1 ML VIAL ONE (10:32)
[2018-12-30] MEDS ORDERED: EPINEPHRINE INJ/PF 1 MG/1 ML AMPULE ONE (10:32)
[2018-12-30] MEDS ORDERED: FENTANYL CITRATE INJ/PF 100 MCG/2 ML AMPUL ONE (10:32)
[2018-12-30] MEDS ORDERED: MIDAZOLAM 2 MG/2 ML INJ ONE (10:32)
[2018-12-30] MEDS ORDERED: BUPIVACAINE HCL 0.25 % INJ/PF (2.5 MG/1 ML) 30 ML VIAL ONE (10:41)
[2018-12-30] MEDS ORDERED: GENTAMICIN SULFATE INJ 80 MG/2 ML VIAL ONE (10:41)
[2018-12-30] MEDS ORDERED: VANCOMYCIN HCL INJ 1000 MG VIAL ONE (10:41)
[2018-12-30] MEDS ORDERED: BACITRACIN INJ 50,000 UNIT VIAL ONE (10:42)
[2018-12-30] MEDS ORDERED: VANCOMYCIN HCL 1,000 MG in DEXTROSE 5%-WATER 250 ML IV ONE (10:45)
[2018-12-30] MEDS ORDERED: DIPHENHYDRAMINE HCL 50 MG/ML VIAL IV PRN (12:05)
[2018-12-30] MEDS ORDERED: ONDANSETRON HCL INJ/PF 4 MG/2 ML SDV IV PRN (12:05)
[2018-12-30] MEDS ORDERED: FENTANYL CITRATE INJ/PF 100 MCG/2 ML AMPUL IV PRN ×3 (12:05)
[2018-12-30] MEDS ORDERED: PROMETHAZINE HCL INJ 25 MG/1 ML VIAL IV PRN ×2 (12:05)
[2018-12-30] MEDS ORDERED: OXYCODONE-ACETAMINOPHEN 5-325 MG TABLET PO PRN ×2 (12:05)
[2018-12-30] MEDS ORDERED: MEPERIDINE HCL/PF INJ 25 MG/1 ML DISP.SYRIN IV PRN (12:05)
[2018-12-30] MEDS ORDERED: CLINDAMYCIN 900 MG/D5W RTU 900 MG/50 ML RTUPB IV ONE ×2 (12:15→12:54)
[2018-12-30] MEDS ORDERED: ACETAMINOPHEN 1,000 MG/100 ML RTUPB IV ONE (13:36)
--- NOTE | 2018-12-30 14:26 | RADIOLOGY REPORT (SQ) ---
EXAM DESCRIPTION: HIP RIGHT AP/LATERAL COMPLETED DATE/TIME: 12/30/2018 2:08 pm REASON FOR STUDY: POST TOTAL HIP M16.11 UNILATERAL PRIMARY OSTEOARTHRITIS, RIGHT HIP COMPARISON: 08/03/2018. NUMBER OF VIEWS: Two view(s). TECHNIQUE: Digital radiographic images of the pelvis and right hip post-procedure. LIMITATIONS: None. FINDINGS: BONES: No worrisome or unexpected findings post-procedure. DEVICE: Bi-polar prothesis. Device appears in appropriate location. SOFT TISSUES: No worrisome findings. Expected postoperative soft tissue changes. IMPRESSION: SATISFACTORY POSTOPERATIVE RIGHT HIP. TECHNICAL DOCUMENTATION: JOB ID: [id number] [employer]- All Rights Reserved Reading location - IP/workstation name: [email or web address]
--- NOTE | 2018-12-30 14:27 | RADIOLOGY REPORT (SQ) ---
EXAM DESCRIPTION: HIP RIGHT AP/LATERAL; NO CHG FLUORO COMPLETED DATE/TIME: 12/30/2018 2:07 pm REASON FOR STUDY: TOTAL RIGHT HIP REPLACEMENT M16.11 UNILATERAL PRIMARY OSTEOARTHRITIS, RIGHT HIP COMPARISON: 08/03/2018. FLUOROSCOPY TIME: 0.1 minute. 1 images saved to PACS. TECHNIQUE: Intra-operative images acquired during surgical procedure to evaluate progress. NUMBER OF IMAGES: 1 image. LIMITATIONS: None. FINDINGS: Image of the hip acquired during the procedure. IMPRESSION: IMAGE(S) OBTAINED DURING PROCEDURE. COMMENT: Quality ID [id number]: Final reports for procedures using fluoroscopy that document radiation exp osure indices, or exposure time and number of fluorographic images (if radiation exposure indices are not available) Please consult full operative report of the attending physician for description of the procedure. TECHNICAL DOCUMENTATION: JOB ID: [id number] [employer]- All Rights Reserved Reading location - IP/workstation name: [email or web address]
--- NOTE | 2018-12-30 14:27 | RADIOLOGY REPORT (SQ) ---
EXAM DESCRIPTION: HIP RIGHT AP/LATERAL; NO CHG FLUORO COMPLETED DATE/TIME: 12/30/2018 2:07 pm REASON FOR STUDY: TOTAL RIGHT HIP REPLACEMENT M16.11 UNILATERAL PRIMARY OSTEOARTHRITIS, RIGHT HIP COMPARISON: 08/03/2018. FLUOROSCOPY TIME: 0.1 minute. 1 images saved to PACS. TECHNIQUE: Intra-operative images acquired during surgical procedure to evaluate progress. NUMBER OF IMAGES: 1 image. LIMITATIONS: None. FINDINGS: Image of the hip acquired during the procedure. IMPRESSION: IMAGE(S) OBTAINED DURING PROCEDURE. COMMENT: Quality ID [id number]: Final reports for procedures using fluoroscopy that document radiation exp osure indices, or exposure time and number of fluorographic images (if radiation exposure indices are not available) Please consult full operative report of the attending physician for description of the procedure. TECHNICAL DOCUMENTATION: JOB ID: [id number] [employer]- All Rights Reserved Reading location - IP/workstation name: [email or web address]
[2018-12-30] MEDS ORDERED: OXYCODONE HCL IR 5 MG TABLET PO PRN ×3 (16:36→18:14)
[2018-12-30] MEDS ORDERED: TRAMADOL HCL 50 MG TABLET PO PRN (17:00)
[2018-12-30] MEDS ORDERED: INFLUENZA QUAD (6MOS+) 2019-20 VAC 0.5 ML SYR IM ONE (17:15)
--- NOTE | 2018-12-30 17:57 | Operative Report ---
Operative Report DATE OF SURGERY: 12/30/18 PREOPERATIVE DIAGNOSIS: Right hip primary osteoarthritis POSTOPERATIVE DIAGNOSIS: Same OPERATION: Right total hip replacement SURGEON: CATALINO WELLINGTON JR ANESTHESIA: Spinal COMPLICATIONS: None ESTIMATED BLOOD LOSS: 200 cc PROCEDURE: BRIEF HISTORY: 78 year old female with severe degenerative arthritis of right hip, which has failed conservative treatment and has elected for a total hip arthroplasty. Risks include but are not limited to bleeding, infection, anesthesia, , injury to nerve or vessel, pain, scar, leg length inequality, dislocation, future surgery, and blood clots. Patient read through the pre-op counseling form and signed and solicited for surgery on their right hip. OPERATIVE PROCEDURE: Patient was brought to the operating room on and underwent spinal anesthesia. 900 mg of clindamycin and 1 g of vancomycin was given. After proper anesthesia was obtained, patient was positioned, padded, prepped, and draped in the usual sterile fashion on the operating room table. Appropriate time out was performed. A anterior approach to the hip was undertaken with meticulous hemostasis. The femoral neck was cut in line with the femoral broach and the femoral head was removed. The acetabulum was then exposed with three retractors in an atraumatic fashion. Soft tissue and ost eophytes were removed. Medialization reaming was performed followed by anatomic reaming up to accept a 52 mm acetabulum. The 52 mm acetabulum was impacted into correct position and stability checked with Fifi test. A 36 mm liner was impacted into the shell with good stability. Potential impinging osteophytes were removed. Attention was then directed toward the femur, which was exposed with two retractors in an atraumatic fashion. coil cutter, lateralization rasping and then broaching up to accept a 14 femur. With a lateral offset neck and a 36+3 head, stability was good in flexion and extension. The real lateral #14 offset femur was impacted into a copiously irrigated femoral canal. A 36 mm +3 head was impacted on a clean dry femoral taper. This was then reduced however was found to be unstable and external rotation. The hip was dislocated again and the head was removed and a +3 head trial was placed which was also found to provide nearly equal leg lengths. This was dislocated, and a final +336 head was impacted and reduced which was then found to be stable. The hip was irrigated and reduced, further irrigation with antibiotic solution, betadine solution, then antibiotic solution. Bleeders were coagulated with bovie cautery. The fascia was then closed with number 2 Stratofix; the subcutaneous tissue closed with interrupted 2-0 Vicryl then running 3-0 monocryl subcuticular. Dermabond skin glue was applied followd by a silver dressing. All needle sponge and instrument counts were correct. Patient was awakened from sedation anesthesia and taken to recovery room in good condition. Thank you, Catalino Wellington, DO
[2018-12-30] MEDS: GABAPENTIN 100 MG CAPSULE PO SCH (18:08)
[2018-12-30] MEDS: TRAMADOL HCL 50 MG TABLET PO PRN (20:23)
[2018-12-30] MEDS: ACETAMINOPHEN 325 MG TABLET PO SCH (21:28)
[2018-12-31] MEDS ORDERED: MEPOLIZUMAB 100 MG SQ SCH (01:00)
[2018-12-31] MEDS: OXYCODONE HCL IR 5 MG TABLET PO PRN ×2 (03:35→14:34)
[2018-12-31] MEDS: ACETAMINOPHEN 325 MG TABLET PO SCH ×2 (05:26→13:02)
[2018-12-31] MEDS: GABAPENTIN 100 MG CAPSULE PO SCH (05:26)
[2018-12-31] MEDS ORDERED: PANTOPRAZOLE SODIUM 20 MG TABLET.DR PO SCH (06:00)
--- NOTE | 2018-12-31 07:36 | PDOC PROGRESS REPORT ---
Subjective Progress Note for:: 12/31/18 Subjective:: Patient is doing very well this AM. Minimal pain, no new symptoms. Has been voluntarily ambulating well. Reason For Visit: M16.11 UNILATERAL PRIMARY OSTEOARTHRITIS, RIGHT HI Physical Exam Vital Signs: Temp Pulse Resp BP Pulse Ox 97.5 F 77 15 99/62 L 95 12/31/18 00:00 12/31/18 00:00 12/31/18 00:00 12/31/18 00:00 12/31/18 00:00 Intake & Output 12/30/18 12/31/18 01/01/19 06:59 06:59 06:59 Intake Total 2290 Output Total 100 Balance 2190 Weight 80.2 kg Physical Exam: My physical exam general appearance: PRESENT: no acute distress, cooperative, well-nourished Head exam: PRESENT: atraumatic, normocephalic Eye exam: PRESENT: EOMI Ear exam: PRESENT: normal external ear exam Mouth exam: PRESENT: neck supple Neck exam: ABSENT: tracheal deviation Respiratory exam: PRESENT: symmetrical, unlabored. ABSENT: accessory muscle use, wheezes Pulses: PRESENT: normal radial pulses, normal dorsalis pedis pul Vascular exam: PRESENT: normal capillary refill GI/Abdominal exam: ABSENT: distended, firm Extremities exam: PRESENT: full ROM of bilateral shoulders, elbows wrists, knees, hips and ankles without pain Musculoskeletal exam: PRESENT: full ROM, normal inspection Neurological exam: PRESENT: alert, awake, oriented to person, oriented to place, oriented to time Psychiatric exam: PRESENT: appropriate affect. ABSENT: agitated Focused psych exam: ABSENT: catatonic Skin exam: PRESENT: intact. ABSENT: dry All as above aside from that noted in the HPI and the following: Right lower extremity neurovascularly intact. Wound clean dry and intact. Ecchymosis as would be expected on postoperative day #1. Pulses 1+ Results Laboratory Results: 12/30/18 08:54 12/30/18 12/30/18 08:54 08:54 Potassium 4.3 Blood Type A NEGATIVE Antibody Screen NEGATIVE Impressions: Fluoroscopy 12/30/18 00:00 IMPRESSION: IMAGE(S) OBTAINED DURING PROCEDURE. Hip/Pelvis X-Ray 12/30/18 00:00 IMPRESSION: IMAGE(S) OBTAINED DURING PROCEDURE. Assessment & Plan - Diagnosis (1) Osteoarthritis of right hip Is this a current diagnosis for this admission?: Yes Plan: The patient is doing great for postoperative day #1. She is stable for discharge home earlier than expected. -She is to use SCDs at all times at home except for hygiene and during intentional ambulation. -She is to resume her Eliquis on postoperative day #3 -She has a follow-up appointment scheduled with me -She has pain medication has been handed to her in the preoperative setting -Instructions have been provided she is to call my office with any further questions or concerns -Weightbearing as tolerated activity as tolerated -PT as soon as possible after surgery on an outpatient setting. - Time Time Spent with patient: 15-24 minutes
--- NOTE | 2018-12-31 09:43 | RADIOLOGY REPORT (SQ) ---
EXAM DESCRIPTION: VENOUS UNILATERAL LOWER COMPLETED DATE/TIME: 12/31/2018 9:25 am REASON FOR STUDY: post op r tka M16.11 UNILATERAL PRIMARY OSTEOARTHRITIS, RIGHT HIP COMPARISON: 12/28/2018. TECHNIQUE: Dynamic and static nassar scale and color images acquired of the left leg venous system. Se lected spectral images acquired with additional compression and augmentation maneuvers. The contralat eral common femoral vein and saphenofemoral junction were also imaged. Images stored on PACS. LIMITATIONS: None. FINDINGS: COMMON FEMORAL: Normal phasicity, compression and augmentation. No visualized echogenic ma terial on nassar scale. No defects on color images. FEMORAL: Normal compression and augmentation. No visualized echogenic material on nassar scale. No defe cts on color images. POPLITEAL: Nonocclusive thrombus. CALF VESSELS: Occlusive thrombus in a single posterior tibial vein. Patent peroneal vein. ANY DEEP VENOUS INSUFFICIENCY: Not evaluated. ANY EVIDENCE OF POPLITEAL CYST: No. OTHER: No other significant finding. CONTRALATERAL COMMON FEMORAL VEIN AND SAPHENOFEMORAL JUNCTION: Normal phasicity, compression and augmentation. No visualized echogenic material on nassar scale. No de fects on color images. IMPRESSION: NONOCCLUSIVE POSSIBLY SUBACUTE THROMBUS IN THE POPLITEAL VEIN. THROMBUS IN A SINGLE POS TERIOR TIBIAL VEIN. PATENT FEMORAL VEINS. TECHNICAL DOCUMENTATION: JOB ID: [id number] [employer]- All Rights Reserved Reading location - IP/workstation name: [email or web address]
[2018-12-31 09:50] LABS: HEMATOCRIT 29.1 % (36.0-47.0); HEMOGLOBIN 9.9 g/dL (12.0-15.5); MEAN CORPUSCULAR HEMOGLOBIN 31.1 pg (27.0-33.4); MEAN CORPUSCULAR HGB CONC 34.1 g/dL (32.0-36.0); MEAN CORPUSCULAR VOLUME 91 fl (80-97); PLATELET COUNT 206 10^3/uL (150-450); WHITE BLOOD COUNT 10.3 10^3/uL (4.0-10.5)
[2018-12-31] MEDS ORDERED: CHOLECALCIFEROL (D3) 1,000 UNIT (25 MCG) TABLET PO SCH (10:00)
[2018-12-31] MEDS ORDERED: (PENDING PHARMACY ID) (Calcium Carbonate [Calcium] 1,200 MG) PO SCH (10:00)
[2018-12-31] MEDS ORDERED: SPIRONOLACTONE 25 MG TABLET PO SCH (10:00)
[2018-12-31] MEDS ORDERED: ASPIRIN 325 MG TABLET PO SCH (10:00)
[2018-12-31] MEDS ORDERED: METOPROLOL SUCCINATE 50 MG TAB.SR.24H PO SCH (10:00)
[2018-12-31] MEDS ORDERED: DULOXETINE HCL 30 MG CAPSULE.DR PO SCH (10:00)
[2018-12-31] MEDS ORDERED: FLUTICASONE/UMECLIDIN/VILANTER 100-62.5-25 MCG/DOSE IH SCH (10:00)
[2018-12-31] MEDS ORDERED: MAGNESIUM 100 MG PO SCH (10:00)
[2018-12-31] MEDS ORDERED: HYDROCHLOROTHIAZIDE 12.5 MG TABLET PO SCH (10:00)
[2018-12-31] MEDS ORDERED: LOSARTAN POTASSIUM 50 MG TABLET PO SCH (10:00)
[2018-12-31] MEDS: TRAMADOL HCL 50 MG TABLET PO PRN (11:36)
--- NOTE | 2018-12-31 11:53 | PDOC CONSULTATION ---
Consultation Consult Date: 12/31/18 Attending physician:: PEDRITO WELLINGTON JR Provider Consulted: IMMANUEL BHAKTA JR Consult reason:: possible DVT, hypotension History of Present Illness Admission Date/PCP: 12/30/18 07:31 MARIANGEL BROWN DO History of Present Illness: DOE FUNG is a 78 year old female who was admitted to the hospital on 12/30/2018 for a right total hip replacement... Patient had failed outpatient conservative therapy. On 12/30/2018 patient underwent the procedure, tolerated the procedure well and had no complications with surgery.. We were asked to see the patient because of a abnormal venous Doppler on the left lower extremity and mild hypotension. Patient has had a DVT in the left lower extremity back in April 2018. Patient was complaining of some slight left leg pain and a venous Doppler was ordered. Showed a nonocclusive possibly subacute thrombus in the popliteal vein also a thrombus and a single posterior tibial vein.. Upon further review it has been decided that this is an old finding from her previous DVT. Patient has no swelling of the left lower extremity, no redness, warmth to the touch. Also patient has very little pain. At the same time it was noted that postoperatively the patient's blood pressure has been slightly low with a systolic around 97, and postop systolic around 87. She has been on hydrochlorothiazide, Toprol and telmisartan for many years concerning her blood pressure. Patient is asymptomatic concerning hypotension, she has no dizziness, no lightheadedness, no nausea, no vomiting ,no syncope. Past Medical History Cardiac Medical History: Reports: Hyperlipidema, Hypertension Denies: Atrial Fibrillation, Congestive Heart Failure, Coronary Artery Diseas e, Myocardial Infarction, Peripheral Vascular Disease, Pulmonary Embolism, Heart Murmur Pulmonary Medical History: Reports: Asthma, Chronic Obstructive Pulmonary Disease (COPD), Sleep Apnea - uses CPAP Denies: Bronchitis, Pneumonia, Respiratory Failure, Tuberculosis Neurological Medical History: Denies: Seizures Endocrine Medical History: Reports: Diabetes Mellitus Type 2, Hyperthyroidism Denies: Diabetes Mellitus Type 1, Hypothyroidism Renal/ Medical History: Denies: End Stage Renal Disease Malignancy Medical History: Reports: Skin Cancer Denies: Lung Cancer GI Medical History: Reports: Gastroesophageal Reflux Disease Denies: Cirrhosis, Crohn's Disease, Hepatitis, Hiatal Hernia Musculoskeltal Medical History: Reports: Arthritis Denies: Fibromyalgia, Gout Skin Medical History: Denies: Psoriasis Psychiatric Medical History: Reports: Bipolar Disorder, Depression - anxiety Denies: Post Traumatic Stress Disorder Hematology: Denies: Anemia, Sickle Cell Disease Infectious Medical History: Denies: Clostridium Difficile Past Surgical History Past Surgical History: Reports: Appendectomy, Cholecystectomy, 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, Hysterectomy, Other - orif l WRIST Denies: Amputation, Section, Colostomy, Gastric Bypass Surgery, Herniorrhaphy, Mastectomy, Pacemaker, Tonsillectomy, Tubal Ligation Social History Smoking Status: Current Every Day Smoker Cigarettes Packs Per Day: 0.5 Frequency of Alcohol Use: None Hx Recreational Drug Use: No Drugs: None Hx Prescription Drug Abuse: No - Advance Directive Resuscitation Status: Full Code Family History Family History: CAD, DM, Hyperlipidemia, Hypertension, Malignancy - SKIN Parental Family History Reviewed: No Children Family History Reviewed: No Sibling(s) Family History Reviewed.: No Medication/Allergy Home Medications: Omeprazole 20 mg PO DAILY 07/24/17 Montelukast Sodium [Singulair 10 mg Tablet] 10 mg PO QHS 02/01/18 Calcium Carbonate [Calcium] 1,200 mg PO DAILY 12/23/18 Fluticasone/Umeclidin/Vilanter [Trelegy 100-62.5-25 Mcg Ellipta 14 Dose/Dpi] 1 puff IN DAILY 12/23/18 Hydrochlorothiazide 12.5 mg PO DAILY 12/23/18 Magnesium [Magnacaps] 100 mg PO DAILY 12/23/18 Methimazole [Tapazole 5 mg Tablet] 5 mg PO QHS 12/23/18 Metoprolol Succinate 50 mg PO DAILY 12/23/18 Spironolactone [Aldactone 25 mg Tablet] 25 mg PO DAILY 12/23/18 Telmisartan 40 mg PO DAILY 12/23/18 Cholecalciferol (Vitamin D3) [Vitamin D3 5000 unit Capsule] 5,000 unit PO DAILY 12/30/18 Duloxetine HCl 60 mg PO DAILY 12/30/18 Mepolizumab [Nucala] 100 mg SQ .QMONTHLY 12/30/18 Pramipexole Di-HCl [Pramipexole Dihydrochloride] 0.125 mg PO QHS 12/30/18 Acetaminophen [Tylenol 325 mg Tablet] 975 mg PO Q8 tablet 12/31/18 Apixaban [Eliquis 5 mg Tablet] 10 mg PO BID 7 Days #28 tablet 12/31/18 Aspirin [Aspirin 325 mg Tablet] 325 mg PO DAILY tablet 12/31/18 Gabapentin [Neurontin 100 mg Capsule] 100 mg PO Q12A capsule 12/31/18 Oxycodone HCl [Oxy-Ir 5 mg Tablet] 5 mg PO Q4HP PRN tablet 12/31/18 Oxycodone HCl [Oxy-Ir 5 mg Tablet] 10 mg PO Q4HP PRN tablet 12/31/18 Tramadol HCl [Ultram 50 mg Tablet] 50 mg PO Q4HP PRN tablet 12/31/18 Allergies/Adverse Reactions: cephalexin [From Keflex] Allergy (Verified 12/15/18 13:15) morphine Allergy (Verified 12/15/18 13:15) sulfamethoxazole [From Bactrim] Allergy (Verified 12/15/18 13:15) trimethoprim [From Bactrim] Allergy (Verified 12/15/18 13:15) Review of Systems Constitutional: ABSENT: chills, fever(s), headache(s), weight gain, weight loss Cardiovascular: ABSENT: chest pain, dyspnea on exertion, edema, orthropnea, palpitations Respiratory: ABSENT: cough, hemoptysis Gastrointestinal: ABSENT: abdominal pain, constipation, diarrhea, hematemesis, hematochezia, nausea, vomiting Neurological: ABSENT: abnormal gait, abnormal speech, confusion, dizziness, focal weakness, syncope Psychiatric: ABSENT: anxiety, depression, homidical ideation, suicidal ideation Physical Exam Vital Signs: Temp Pulse Resp BP Pulse Ox 97.8 F 84 18 97/46 L 95 12/31/18 07:55 12/31/18 07:55 12/31/18 07:55 12/31/18 07:55 12/31/18 07:55 Intake & Output 12/30/18 12/31/18 01/01/19 06:59 06:59 06:59 Intake Total 2290 Output Total 100 Balance 2190 Weight 80.2 kg General appearance: PRESENT: no acute distress, well-developed, well-nourished, other - Daughters in the room at the bedside Respiratory exam: PRESENT: clear to auscultation gisele. ABSENT: rales, rhonchi, wheezes Cardiovascular exam: PRESENT: RRR. ABSENT: diastolic murmur, rubs, systolic murmur Vascular exam: PRESENT: other - Deferred to orthopedics Extremities exam: PRESENT: other - Deferred to orthopedics Neurological exam: PRESENT: alert, awake, oriented to person, oriented to place, oriented to time, oriented to situation, CN II-XII grossly intact. ABSENT: motor sensory deficit Psychiatric exam: PRESENT: appropriate affect, normal mood, other - Patient states she is in no distress. ABSENT: homicidal ideation, suicidal ideation Results Laboratory Results: 12/31/18 09:20 12/30/18 08:54 12/31/18 09:20 WBC 10.3 RBC 3.20 L Hgb 9.9 L Hct 29.1 L MCV 91 MCH 31.1 MCHC 34.1 RDW 13.0 Plt Count 206 Impressions: Fluoroscopy 12/30/18 00:00 IMPRESSION: IMAGE(S) OBTAINED DURING PROCEDURE. Hip/Pelvis X-Ray 12/30/18 00:00 IMPRESSION: IMAGE(S) OBTAINED DURING PROCEDURE. Venous Doppler Study 12/31/18 07:54 IMPRESSION: NONOCCLUSIVE POSSIBLY SUBACUTE THROMBUS IN THE POPLITEAL VEIN. THROMBUS IN A SINGLE POSTERIOR TIBIAL VEIN. PATENT FEMORAL VEINS. Assessment and Plan - Diagnosis (1) Osteoarthritis of right hip Is this a current diagnosis for this admission?: Yes (2) DVT (deep venous thrombosis) Qualifiers: DVT location: lower extremity Affected thrombotic vein of extremity: unspecified vein of extremity Chronicity: acute Laterality: right Qualified Code(s): I82.401 - Acute embolism and thrombosis of unspecified deep veins of right lower extremity Is this a current diagnosis for this admission?: Yes (3) Hypertension Qualifiers: Hypertension type: essential hypertension Qualified Code(s): I10 - Essential (primary) hypertension Is this a current diagnosis for this admission?: Yes - Plan Summary Summary: At the present time the orthopedic surgeon came to the room while I was there and he discussed with the patient and her daughter upon further review of her venous Doppler, further discussion with the radiologist this abnormal finding was probably old or chronic and not a new or ongoing DVT. He recommended that she continue her daily aspirin and on Thursday, postop day 3 to resume her Eliquis. Concerning her blood pressure we are going to keep her here for another 2 to 3 hours and recheck her vital signs twice during that time. I have instructed her to drink lots of fluids when she is discharged later today, to take her Toprol tonight as scheduled, based on what her final blood pressure is prior to discharge as to whether or not she will take her Telmisartan tomorrow morning. Patient and her daughter seems satisfied. No further intervention is not needed at this time. I will discuss this with the patient's nurse prior to discharge who will relay the information to the patient. Thank you for this consult - Time Time Spent with patient: 35 or more minutes
[2018-12-31 15:43] VITALS: BP 110/55
--- NOTE | 2018-12-31 16:30 | PDOC CONSULTATION ---
Consultation Consult Date: 12/31/18 Attending physician:: PEDRITO HERRERA JR Provider Consulted: HELENE PETERSON Consult reason:: Questionable new DVT on ultrasound. Evaluation for IVC filter. History of Present Illness Admission Date/PCP: 12/30/18 07:31 MARIANGEL BROWN DO History of Present Illness: DOE FUNG is a 78 year old female seen at the request of Dr. Herrera. She has recently undergone right hip surgery. The patient has a history of right lower extremity posterior tibial and popliteal DVT. This was found in April 2018. She has received Eliquis for this in the past. Her Eliquis was stopped for surgery. Ultrasound of the right lower extremity today was performed. It shows a subacute DVT in the popliteal which is nonoccluding, as well as exte nsion into the posterior tibial vein. Patient denies any acute symptoms at this time. She denies any swelling, pain, discoloration, or other symptom. Patient also denies shortness of breath or chest pain. Past Medical History Cardiac Medical History: Reports: Hyperlipidema, Hypertension Denies: Atrial Fibrillation, Congestive Heart Failure, Coronary Artery Disease, Myocardial Infarction, Peripheral Vascular Disease, Pulmonary Embolism, Heart Murmur Pulmonary Medical History: Reports: Asthma, Chronic Obstructive Pulmonary Dis ease (COPD), Sleep Apnea - uses CPAP Denies: Bronchitis, Pneumonia, Respiratory Failure, Tuberculosis Neurological Medical History: Denies: Seizures Endocrine Medical History: Reports: Diabetes Mellitus Type 2, Hyperthyroidism Denies: Diabetes Mellitus Type 1, Hypothyroidism Renal/ Medical History: Denies: End Stage Renal Disease Malignancy Medical History: Reports: Skin Cancer Denies: Lung Cancer GI Medical History: Reports: Gastroesophageal Reflux Disease Denies: Cirrhosis, Crohn's Disease, Hepatitis, Hiatal Hernia Musculoskeltal Medical History: Reports: Arthritis Denies: Fibromyalgia, Gout Skin Medical History: Denies: Psoriasis Psychiatric Medical History: Reports: Bipolar Disorder, Depression - anxiety Denies: Post Traumatic Stress Disorder Hematology: Denies: Anemia, Sickle Cell Disease Infectious Medical History: Denies: Clostridium Difficile Past Surgical History Past Surgical History: Reports: Appendectomy, Cholecystectomy, 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, Hysterectomy, Other - orif l WRIST Denies: Amputation, Section, Colostomy, Gastric Bypass Surgery, Herniorrhaphy, Mastectomy, Pacemaker, Tonsillectomy, Tubal Ligation Social History Smoking Status: Current Every Day Smoker Cigarettes Packs Per Day: 0.5 Frequency of Alcohol Use: None Hx Recreational Drug Use: No Drugs: None Hx Prescription Drug Abuse: No - Advance Directive Resuscitation Status: Full Code Family History Family History: CAD, DM, Hyperlipidemia, Hypertension, Malignancy - SKIN Parental Family History Reviewed: Yes Children Family History Reviewed: Yes Sibling(s) Family History Reviewed.: Yes Medication/Allergy Home Medications: Omeprazole 20 mg PO DAILY 07/24/17 Montelukast Sodium [Singulair 10 mg Tablet] 10 mg PO QHS 02/01/18 Calcium Carbonate [Calcium] 1,200 mg PO DAILY 12/23/18 Fluticasone/Umeclidin/Vilanter [Trelegy 100-62.5-25 Mcg Ellipta 14 Dose/Dpi] 1 puff IN DAILY 12/23/18 Hydrochlorothiazide 12.5 mg PO DAILY 12/23/18 Magnesium [Magnacaps] 100 mg PO DAILY 12/23/18 Methimazole [Tapazole 5 mg Tablet] 5 mg PO QHS 12/23/18 Metoprolol Succinate 50 mg PO DAILY 12/23/18 Spironolactone [Aldactone 25 mg Tablet] 25 mg PO DAILY 12/23/18 Telmisartan 40 mg PO DAILY 12/23/18 Cholecalciferol (Vitamin D3) [Vitamin D3 5000 unit Capsule] 5,000 unit PO DAILY 12/30/18 Duloxetine HCl 60 mg PO DAILY 12/30/18 Mepolizumab [Nucala] 100 mg SQ .QMONTHLY 12/30/18 Pramipexole Di-HCl [Pramipexole Dihydrochloride] 0.125 mg PO QHS 12/30/18 Acetaminophen [Tylenol 325 mg Tablet] 975 mg PO Q8 tablet 12/31/18 Apixaban [Eliquis 5 mg Tablet] 10 mg PO BID 7 Days #28 tablet 12/31/18 Aspirin [Aspirin 325 mg Tablet] 325 mg PO DAILY tablet 12/31/18 Gabapentin [Neurontin 100 mg Capsule] 100 mg PO Q12A capsule 12/31/18 Oxycodone HCl [Oxy-Ir 5 mg Tablet] 5 mg PO Q4HP PRN tablet 12/31/18 Oxycodone HCl [Oxy-Ir 5 mg Tablet] 10 mg PO Q4HP PRN tablet 12/31/18 Tramadol HCl [Ultram 50 mg Tablet] 50 mg PO Q4HP PRN tablet 12/31/18 Allergies/Adverse Reactions: cephalexin [From Keflex] Allergy (Verified 12/15/18 13:15) morphine Allergy (Verified 12/15/18 13:15) sulfamethoxazole [From Bactrim] Allergy (Verified 12/15/18 13:15) trimethoprim [From Bactrim] Allergy (Verified 12/15/18 13:15) Review of Systems Constitutional: ABSENT: anorexia, chills, fatigue, fever(s), headache(s) Eyes: ABSENT: visual disturbances Ears: ABSENT: hearing changes Nose, Mouth, and Throat: ABSENT: mouth pain, sore throat Cardiovascular: ABSENT: chest pain Respiratory: ABSENT: cough, dyspnea Gastrointestinal: ABSENT: abdominal pain, bloating, constipation Genitourinary: ABSENT: dysuria Musculoskeletal: PRESENT: other - Pain in right hip from recent surgery.. ABSENT: back pain Integumentary: ABSENT: pruritus, rash Neurological: ABSENT: confusion, convulsions, dizziness Psychiatric: ABSENT: anxiety, depression Endocrine: ABSENT: cold intolerance, heat intolerance Hematologic/Lymphatic: PRESENT: easy bleeding, easy bruising Physical Exam Vital Signs: Temp Pulse Resp BP Pulse Ox 98.3 F 81 17 110/55 L 96 12/31/18 15:37 12/31/18 15:37 12/31/18 15:37 12/31/18 15:37 12/31/18 15:37 Intake & Output 12/30/18 12/31/18 01/01/19 06:59 06:59 06:59 Intake Total 2290 860 Output Total 100 Balance 2190 860 Weight 80.2 kg General appearance: PRESENT: no acute distress, cooperative. ABSENT: disheveled Head exam: PRESENT: atraumatic, normocephalic Eye exam: PRESENT: EOMI, PERRLA. ABSENT: scleral icterus Mouth exam: PRESENT: moist, neck supple Teeth exam: ABSENT: poor dentation Neck exam: ABSENT: meningismus, tenderness, thyromegaly, tracheal deviation, tracheostomy Respiratory exam: PRESENT: clear to auscultation gisele, unlabored. ABSENT: chest wall tenderness, tachypnea, wheezes Cardiovascular exam: PRESENT: RRR Pulses: PRESENT: normal radial pulses GI/Abdominal exam: PRESENT: soft. ABSENT: distended, firm, tenderness Rectal exam: PRESENT: deferred Extremities exam: ABSENT: clubbing Musculoskeletal exam: PRESENT: other - Dressing to right hip with bruising in the area.. ABSENT: deformity Neurological exam: PRESENT: alert, awake, oriented to person, oriented to place, oriented to time, oriented to situation, CN II-XII grossly intact. ABSENT: motor sensory deficit Psychiatric exam: ABSENT: agitated, anxious, depressed Skin exam: ABSENT: cyanosis, erythema, jaundice Additional comments: No significant pedal edema. No lower extremity swelling out of proportion to contralateral side. Results Laboratory Results: 12/31/18 09:20 12/30/18 08:54 12/31/18 09:20 WBC 10.3 RBC 3.20 L Hgb 9.9 L Hct 29.1 L MCV 91 MCH 31.1 MCHC 34.1 RDW 13.0 Plt Count 206 Impressions: Fluoroscopy 12/30/18 00:00 IMPRESSION: IMAGE(S) OBTAINED DURING PROCEDURE. Hip/Pelvis X-Ray 12/30/18 00:00 IMPRESSION: IMAGE(S) OBTAINED DURING PROCEDURE. Venous Doppler Study 12/31/18 07:54 IMPRESSION: NONOCCLUSIVE POSSIBLY SUBACUTE THROMBUS IN THE POPLITEAL VEIN. THROMBUS IN A SINGLE POSTERIOR TIBIAL VEIN. PATENT FEMORAL VEINS. 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 She has a history of right lower extremity DVT found in April 2018. Prior to surgery, she was on full dose Eliquis. The DVT extended from the posterior tibial vein up into the popliteal vein. On duplex ultrasound today, she was noted to have a subacute DVT of the posterior tibial vein extending into the popliteal vein. It is nonoccluding. She has no symptoms at present. At this time, I would recommend restarting her anticoagulation as soon as is reasonable, considering her surgery. Seeing as the DVT is chronic, and she has no serious contraindication to anticoagulation, an IVC filter is not indicated at this time. I recommend repeating the ultrasound in 1 week. If there is propagation of the DVT, she will require full anticoagulation. If anticoagulation is not reasonable, she may benefit from IVC filter at that time. Follow-up with me in my office in 1 week. I will see the patient again as needed as an inpatient. Please renotify with questions or concerns.
--- NOTE | 2018-12-31 16:39 | PDOC DISCHARGE SUMMARY ---
Impression - Admit/DC Date/PCP Admission Date/Primary Care Provider: 12/30/18 07:31 MARIANGEL BROWN DO Discharge Date: 12/31/18 - Discharge Diagnosis (1) Osteoarthritis of right hip Is this a current diagnosis for this admission?: Yes - Assessment Summary: Patient was admitted for postoperative monitoring and perioperative management status post right total hip arthroplasty. She was seen and doing very well on postoperative day #1 however there was concern as a subsequent ultrasound of her lower extremity for lower extremity swelling did resent with a clot in her popliteal vein. Upon review with the radiologist this does not appear to be a chronic old thrombus and not a new active thrombus. I did discuss this case with Dr. Jeffrey who agreed that the patient would not need further anticoagulation therapy or invasive treatment aside from the following plan, we will proceed with aspirin twice daily for the next 3 days to bridge her back to her Eliquis full dose in 3 days. Patient was been given this plan and she is in agreement all questions were answered. In addition her blood pressure is been slightly low. She is on multiple blood pressure medications and we have opted to tell her to hold these for now. She is to monitor her blood pressure on her own over the next few days and slowly reintroduce her blood pressure medication as needed. The hospitalist team was consulted for formal recommendations and these were provided to the patient. She had not no other acute events or complications over the course of her stay and was doing excellent with physical therapy who deemed her appropriate for return home with home care provided by her close family. - Additional Information Resuscitation Status: Full Code Discharge Diet: As Tolerated Discharge Activity: Activity As Tolerated, Balance Activity w/Rest, No Lifting Over 10 Pounds, Slowly Increase Activity, No tub bath, Walk Frequently Referrals: PEDRITO WELLINGTON JR, DO [ACTIVE PROVISIONAL STAFF] - 01/17/19 1:40 pm Home Medications: Omeprazole 20 mg PO DAILY 07/24/17 Montelukast Sodium [Singulair 10 mg Tablet] 10 mg PO QHS 02/01/18 Calcium Carbonate [Calcium] 1,200 mg PO DAILY 12/23/18 Fluticasone/Umeclidin/Vilanter [Trelegy 100-62.5-25 Mcg Ellipta 14 Dose/Dpi] 1 puff IN DAILY 12/23/18 Hydrochlorothiazide 12.5 mg PO DAILY 12/23/18 Magnesium [Magnacaps] 100 mg PO DAILY 12/23/18 Methimazole [Tapazole 5 mg Tablet] 5 mg PO QHS 12/23/18 Metoprolol Succinate 50 mg PO DAILY 12/23/18 Spironolactone [Aldactone 25 mg Tablet] 25 mg PO DAILY 12/23/18 Telmisartan 40 mg PO DAILY 12/23/18 Cholecalciferol (Vitamin D3) [Vitamin D3 5000 unit Capsule] 5,000 unit PO DAILY 12/30/18 Duloxetine HCl 60 mg PO DAILY 12/30/18 Mepolizumab [Nucala] 100 mg SQ .QMONTHLY 12/30/18 Pramipexole Di-HCl [Pramipexole Dihydrochloride] 0.125 mg PO QHS 12/30/18 Acetaminophen [Tylenol 325 mg Tablet] 975 mg PO Q8 tablet 12/31/18 Apixaban [Eliquis 5 mg Tablet] 10 mg PO BID 7 Days #28 tablet 12/31/18 Aspirin [Aspirin 325 mg Tablet] 325 mg PO DAILY tablet 12/31/18 Gabapentin [Neurontin 100 mg Capsule] 100 mg PO Q12A capsule 12/31/18 Oxycodone HCl [Oxy-Ir 5 mg Tablet] 5 mg PO Q4HP PRN tablet 12/31/18 Oxycodone HCl [Oxy-Ir 5 mg Tablet] 10 mg PO Q4HP PRN tablet 12/31/18 Tramadol HCl [Ultram 50 mg Tablet] 50 mg PO Q4HP PRN tablet 12/31/18 History of Present Illiness History of Present Illness: DOE FUNG is a 78 year old female Physical Exam Vital Signs: Temp Pulse Resp BP Pulse Ox 98.3 F 81 17 110/55 L 96 12/31/18 15:37 12/31/18 15:37 12/31/18 15:37 12/31/18 15:37 12/31/18 15:37 Intake & Output 12/30/18 12/31/18 01/01/19 06:59 06:59 06:59 Intake Total 2290 860 Output Total 100 Balance 2190 860 Weight 80.2 kg Results Laboratory Results: WBC 10.3 10^3/uL (4.0-10.5) 12/31/18 09:20 RBC 3.20 10^6/uL (3.72-5.28) L 12/31/18 09:20 Hgb 9.9 g/dL (12.0-15.5) L 12/31/18 09:20 Hct 29.1 % (36.0-47.0) L 12/31/18 09:20 MCV 91 fl (80-97) 12/31/18 09:20 MCH 31.1 pg (27.0-33.4) 12/31/18 09:20 MCHC 34.1 g/dL (32.0-36.0) 12/31/18 09:20 RDW 13.0 % (11.5-14.0) 12/31/18 09:20 Plt Count 206 10^3/uL (150-450) 12/31/18 09:20 PT 13.5 SEC (11.4-15.4) 12/30/18 08:54 INR 1.03 12/30/18 08:54 APTT 27.2 SEC (23.5-35.8) 12/30/18 08:54 Potassium 4.3 mmol/L (3.6-5.0) 12/30/18 08:54 Blood Type A NEGATIVE 12/30/18 08:54 Antibody Screen NEGATIVE 12/30/18 08:54 Impressions: Fluoroscopy 12/30/18 00:00 IMPRESSION: IMAGE(S) OBTAINED DURING PROCEDURE. Hip/Pelvis X-Ray 12/30/18 00:00 IMPRESSION: SATISFACTORY POSTOPERATIVE RIGHT HIP. Hip/Pelvis X-Ray 12/30/18 00:00 IMPRESSION: IMAGE(S) OBTAINED DURING PROCEDURE. Venous Doppler Study 12/31/18 07:54 IMPRESSION: NONOCCLUSIVE POSSIBLY SUBACUTE THROMBUS IN THE POPLITEAL VEIN. THROMBUS IN A SINGLE POSTERIOR TIBIAL VEIN. PATENT FEMORAL VEINS. Stroke Is this a Stroke Patient?: No Acute Heart Failure - Is this a Heart Failure Patient?: No
[2018-12-31] MEDS ORDERED: MONTELUKAST SODIUM 10 MG TABLET PO SCH (22:00)
[2018-12-31] MEDS ORDERED: METHIMAZOLE 5 MG TABLET PO SCH (22:00)
[2018-12-31] MEDS ORDERED: PRAMIPEXOLE DI-HCL 0.25 MG TABLET PO SCH (22:00)
[2019-01-01] MEDS ORDERED: CALCIUM CARBONATE 500 MG TABLET PO SCH (10:00)
== END 2018-12-31 16:30 | disposition home or self-care (01) | DRG 470 ==
LOC: INOR 07:31 → 4S 14:55
PROVIDERS: ADMIT Orthopaedic Surgery; ATTEND Orthopaedic Surgery
PROC: 0SR902A Replacement of Right Hip Joint with Metal on Polyethylene Synthetic Substitute, Uncemented, Open Approach (ICD-10-PCS; principal; 2018-12-30 09:45)
DX: M16.11 Unilateral primary osteoarthritis, right hip (principal); I82.531 Chronic embolism and thrombosis of right popliteal vein; E78.5 Hyperlipidemia, unspecified; I10 Essential (primary) hypertension; J44.9 Chronic obstructive pulmonary disease, unspecified; G47.33 Obstructive sleep apnea (adult) (pediatric); E11.9 Type 2 diabetes mellitus without complications; E05.90 Thyrotoxicosis, unspecified without thyrotoxic crisis or storm; K21.9 Gastro-esophageal reflux disease without esophagitis; F31.9 Bipolar disorder, unspecified; I95.9 Hypotension, unspecified; F17.210 Nicotine dependence, cigarettes, uncomplicated; Z79.899 Other long term (current) drug therapy; Z79.82 Long term (current) use of aspirin; Z79.891 Long term (current) use of opiate analgesic; Z85.828 Personal history of other malignant neoplasm of skin; Z95.1 Presence of aortocoronary bypass graft; Z77.22 Contact with and (suspected) exposure to environmental tobacco smoke (acute) (chronic); Z88.6 Allergy status to analgesic agent; Z88.1 Allergy status to other antibiotic agents; Z88.3 Allergy status to other anti-infective agents; Z88.2 Allergy status to sulfonamides; Z79.01 Long term (current) use of anticoagulants; Z79.1 Long term (current) use of non-steroidal anti-inflammatories (NSAID); Z82.49 Family history of ischemic heart disease and other diseases of the circulatory system; Z83.3 Family history of diabetes mellitus; Z80.8 Family history of malignant neoplasm of other organs or systems
CPT/HCPCS: 01214; 36415; 84132; 85027; 85610; 85730; 86850; 86900; 86901; 93970; 93971; J0131; J0171; J1100; J1580; J1885; J2250; J2370; J2405; J2704; J3010; J3370; J3490; J7060

== ENCOUNTER 2019-01-06 16:14 | Emergency (ER) | payer MEDICARE, MEDICAID ==
[2019-01-06 16:21] VITALS: BP 107/57
--- NOTE | 2019-01-06 16:36 | ER Document Report ---
ED Medical Screen (RME) - General Chief Complaint: Leg Pain Stated Complaint: RIGHT LEG PAIN Time Seen by Provider: 01/06/19 16:33 Primary Care Provider: PEDRITO WELLINGTON JR, DO [Primary Care Provider] - Follow up as needed Mode of Arrival: Wheelchair Information source: Patient Notes: 78-year-old female presented to ED for DVT to the right leg. She had right hip replacement on December 30. She has been on treatment for DVT since March. The venous Doppler before surgery was negative but the pain is Doppler today is positive. She was sent over here by her orthopedic surgeon to have the Doppler done. Since the Doppler was positive she was sent to the emergency room. She was on Eliquis up to the surgery and then was started on it after the surgery. I have greeted and performed a rapid initial assessment of this patient. A comprehensive ED assessment and evaluation of the patient, analysis of test results and completion of medical decision making process will be conducted by an additional ED providers. TRAVEL OUTSIDE OF THE [place] IN LAST 30 DAYS: No - Related Data Allergies/Adverse Reactions: cephalexin [From Keflex] Allergy (Verified 01/06/19 16:31) morphine Allergy (Verified 01/06/19 16:31) sulfamethoxazole [From Bactrim] Allergy (Verified 01/06/19 16:31) trimethoprim [From Bactrim] Allergy (Verified 01/06/19 16:31) Past Medical History - Past Medical History Cardiac Medical History: Reports: Hx Hypercholesterolemia, Hx Hypertension Denies: Hx Atrial Fibrillation, Hx Congestive Heart Failure, Hx Coronary Artery Disease, Hx Heart Attack, Hx Peripheral Vascular Disease, Hx Pulmonary Embolism, Hx Heart Murmur Pulmonary Medical History: Reports: Hx Asthma, Hx COPD, Hx Sleep Apnea - uses CPAP Denies: Hx Bronchitis, Hx Pneumonia, Hx Respiratory Failure, Hx Tuberculosis Neurological Medical History: Denies: Hx Cerebrovascular Accident, Hx Seizures Endocrine Medical History: Reports: Hx Diabetes Mellitus Type 2, Hx Hyperthyroidism. Denies: Hx Diabetes Mellitus Type 1, Hx Graves' Disease, Hx Hypothyroidism Renal/ Medical History: Denies: Hx End Stage Renal Disease, Hx Kidney Stones, Hx Peritoneal Dialysis Malignancy Medical History: Reports: Hx Skin Cancer. Denies: Hx Lung Cancer GI Medical History: Reports: Hx Gastroesophageal Reflux Disease, Hx Ulcer - 1970. Denies: Hx Cirrhosis, Hx Crohn's Disease, Hx Hepatitis, Hx Hiatal Hernia, Hx Irritable Bowel, Hx Liver Failure, Hx Pancreatitis Musculoskeltal Medical History: Reports Hx Arthritis, Denies Hx Fibromyalgia, Denies Hx Gout, Denies Hx Muscular Dystrophy, Denies Hx Systemic Lupus Erythematosus Skin Medical History: Denies Hx Psoriasis Psychiatric Medical History: Reports: Hx Bipolar Disorder, Hx Depression - anxiety Denies: Hx Post Traumatic Stress Disorder, Hx Schizophrenia Traumatic Medical History: Reports: Hx Fractures - left wrist ORIF Infectious Medical History: Denies: Hx C-Diff, Hx Hepatitis Past Surgical History: Reports: Hx Appendectomy, Hx Cholecystectomy, Hx 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, Hx Hysterectomy, Other - orif l WRIST. Denies: Hx Bowel Surgery, Hx Section, Hx Colostomy, Hx Gastric Bypass Surgery, Hx Herniorrhaphy, Hx Mastectomy, Hx Open Heart Surgery, Hx Pacemaker, Hx Tonsillectomy, Hx Tubal Ligation Physical Exam - Vital signs Vitals: Temp Pulse Resp BP Pulse Ox 98.1 F 70 18 107/57 L 97 01/06/19 16:20 01/06/19 16:20 01/06/19 16:20 01/06/19 16:20 01/06/19 16:20 Course - Vital Signs Vital signs: Temp Pulse Resp BP Pulse Ox 98.1 F 70 18 107/57 L 97 01/06/19 16:20 01/06/19 16:20 01/06/19 16:20 01/06/19 16:20 01/06/19 16:20 Doctor's Discharge - Discharge Referrals: PEDRIOT WELLINGTON JR, [Primary Care Provider] - Follow up as needed
[2019-01-06 17:10] LABS: ABSOLUTE BASOPHILS # (AUTO) 0.1 10^3/uL (0.0-0.2); ABSOLUTE EOSINOPHILS # (AUTO) 0.1 10^3/uL (0.0-0.6); ABSOLUTE LYMPHOCYTES (AUTO) 1.4 10^3/uL (0.5-4.7); ABSOLUTE MONOCYTES (AUTO) 0.6 10^3/uL (0.1-1.4); ABSOLUTE NEUT (AUTO) 4.6 10^3/uL (1.7-8.2); BASOPHILS % (AUTO) 0.8 % (0-2); HEMATOCRIT 30.6 % (36.0-47.0); HEMOGLOBIN 10.5 g/dL (12.0-15.5); LYMPHOCYTES % (AUTO) 20.9 % (13-45); MEAN CORPUSCULAR HEMOGLOBIN 31.1 pg (27.0-33.4); MEAN CORPUSCULAR HGB CONC 34.4 g/dL (32.0-36.0); MEAN CORPUSCULAR VOLUME 91 fl (80-97); MONOCYTES % (AUTO) 9.1 % (3-13); PLATELET COUNT 345 10^3/uL (150-450); RED BLOOD COUNT 3.38 10^6/uL (3.72-5.28); RED CELL DISTRIBUTION WIDTH 13.7 % (11.5-14.0); SEGMENTED NEUTROPHILS % (AUTO) 68.2 % (42-78); TOTAL CELLS COUNTED % (AUTO) 100 %; WHITE BLOOD COUNT 6.7 10^3/uL (4.0-10.5)
[2019-01-06 17:18] LABS: PARTIAL THROMBOPLASTIN TIME 31.7 SEC (23.5-35.8); PROTHROMBIN TIME 15.3 SEC (11.4-15.4)
--- NOTE | 2019-01-06 17:35 | ER Document Report ---
ED General - General Chief Complaint: Leg Pain Stated Complaint: RIGHT LEG PAIN Time Seen by Provider: 01/06/19 16:33 Primary Care Provider: PEDRITO WELLINGTON JR, DO [Primary Care Provider] - Follow up as needed Mode of Arrival: Wheelchair Notes: Patient is a 78-year-old female with history of chronic DVT that presents to the emergency department for chief complaint of right leg swelling. Patient states she was diagnosed in March of this year with a DVT, she is been on Eliquis since then, she recently had a right total hip arthroplasty, and had duplex imaging before the procedure, that showed that the DVTs were resolving, then she had a repeat afterwards and they were back. However she did see a vascular doctor and I thought that the DVTs were there the entire time and that it was more of a technique on the imaging. They were advised to follow-up today to review the findings, but they are not able to see the surgeon, or their primary care so they came to the emergency department. Patient has had some swelling in her leg, but is essentially been stable since her surgery, not particular worse today. She denies having any calf pain or tenderness. She denies having any chest pain or shortness of breath. Past Medical History: COPD, asthma, DVT, osteoarthritis Past Surgical History: Right total hip arthroplasty Social History: Former smoker, denies alcohol or drug use. Family History: Reviewed and noncontributory for presenting illness Allergies: Reviewed, see documented allergy list. REVIEW OF SYSTEMS: Other than noted above, the 12 point review of systems was reviewed with the patient and were negative, all pertinent findings are included in the HPI. PHYSICAL EXAMINATION: Vital signs reviewed, nursing noted reviewed. GENERAL: Well-appearing, well-nourished and in no acute distress. HEAD: Atraumatic, normocephalic. EYES: Eyes appear normal, sclera anicteric, conjunctiva are normal. ENT: Moist mucous membranes. NECK: Normal range of motion, supple without lymphadenopathy LUNGS: Breath sounds clear to auscultation bilaterally and equal. No wheezes rales or rhonchi. HEART: Regular rate and rhythm without murmurs, distal pulses intact, cap refill less than 3 seconds in all digits. EXTREMITIES: Right lower extremity edema, compared to the left, 1+, no calf tenderness to palpation, negative Homans sign. Good strength distally and good range of motion of all extremities. NEUROLOGICAL: No focal neurological deficits. Moves all extremities spontaneously Motor and sensory grossly intact on exam. PSYCH: Normal mood, normal affect. SKIN: Warm, Dry, normal turgor, no rashes or lesions noted on exposed skin TRAVEL OUTSIDE OF THE [place] IN LAST 30 DAYS: No - Related Data Allergies/Adverse Reactions: cephalexin [From Keflex] Allergy (Verified 01/06/19 16:31) morphine Allergy (Verified 01/06/19 16:31) sulfamethoxazole [From Bactrim] Allergy (Verified 01/06/19 16:31) trimethoprim [From Bactrim] Allergy (Verified 01/06/19 16:31) Past Medical History - General Information source: Patient - Social History Smoking Status: Never Smoker Chew tobacco use (# tins/day): No Frequency of alcohol use: None Drug Abuse: None Family History: CAD, DM, Hyperlipidemia, Hypertension, Malignancy - SKIN Patient has suicidal ideation: No Patient has homicidal ideation: No - Past Medical History Cardiac Medical History: Reports: Hx Hypercholesterolemia, Hx Hypertension Denies: Hx Atrial Fibrillation, Hx Congestive Heart Failure, Hx Coronary Artery Disease, Hx Heart Attack, Hx Peripheral Vascular Disease, Hx Pulmonary Embolism, Hx Heart Murmur Pulmonary Medical History: Reports: Hx Asthma, Hx COPD, Hx Sleep Apnea - uses CPAP Denies: Hx Bronchitis, Hx Pneumonia, Hx Respiratory Failure, Hx Tuberculosis Neurological Medical History: Denies: Hx Cerebrovascular Accident, Hx Seizures Endocrine Medical History: Reports: Hx Diabetes Mellitus Type 2, Hx Hyperthyroidism. Denies: Hx Diabetes Mellitus Type 1, Hx Graves' Disease, Hx Hypothyroidism Renal/ Medical History: Denies: Hx End Stage Renal Disease, Hx Kidney Stones, Hx Peritoneal Dialysis Malignancy Medical History: Reports: Hx Skin Cancer. Denies: Hx Lung Cancer GI Medical History: Reports: Hx Gastroesophageal Reflux Disease, Hx Ulcer - 1970. Denies: Hx Cirrhosis, Hx Crohn's Disease, Hx Hepatitis, Hx Hiatal Hernia, Hx Irritable Bowel, Hx Liver Failure, Hx Pancreatitis Musculoskeletal Medical History: Reports Hx Arthritis, Denies Hx Fibromyalgia, Denies Hx Gout, Denies Hx Muscular Dystrophy, Denies Hx Systemic Lupus Erythematosus Skin Medical History: Denies Hx Psoriasis Psychiatric Medical History: Reports: Hx Bipolar Disorder, Hx Depression - anxiety Denies: Hx Post Traumatic Stress Disorder, Hx Schizophrenia Traumatic Medical History: Reports: Hx Fractures - left wrist ORIF Infectious Medical History: Denies: Hx C-Diff, Hx Hepatitis Past Surgical History: Reports: Hx Appendectomy, Hx Cholecystectomy, Hx 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, Hx Hysterectomy, Other - orif l WRIST. Denies: Hx Bowel Surgery, Hx Section, Hx Colostomy, Hx Gastric Bypass Surgery, Hx Herniorrhaphy, Hx Mastectomy, Hx Open Heart Surgery, Hx Pacemaker, Hx Tonsillectomy, Hx Tubal Ligation Physical Exam - Vital signs Vitals: Temp Pulse Resp BP Pulse Ox 98.1 F 70 18 107/57 L 97 01/06/19 16:20 01/06/19 16:20 01/06/19 16:20 01/06/19 16:20 01/06/19 16:20 Course - Re-evaluation Re-evalutation: Patient seen and examined, vital signs reviewed, patient was noted to have mild swelling of the right lower examinee compared to the left, but she did just have right total hip arthroplasty. Her previous duplex imaging was reviewed, and dem onstrated chronic popliteal, posterior tibial and peroneal vein DVTs, and seemingly unchanged from prior, and no acute DVT noted. No DVT noted in the femoral vein. At this point feel the patient be discharged home to continue her outpatient treatment with Eliquis and to follow-up with her primary care physician. Laboratory 01/06/19 01/06/19 16:57 16:57 WBC 6.7 RBC 3.38 L Hgb 10.5 L Hct 30.6 L MCV 91 MCH 31.1 MCHC 34.4 RDW 13.7 Plt Count 345 Lymph % (Auto) 20.9 Bladen % (Auto) 9.1 Eos % (Auto) 1.0 Baso % (Auto) 0.8 Absolute Neuts (auto) 4.6 Absolute Lymphs (auto) 1.4 Absolute Monos (auto) 0.6 Absolute Eos (auto) 0.1 Absolute Basos (auto) 0.1 Seg Neutrophils % 68.2 PT 15.3 INR 1.20 APTT 31.7 - Vital Signs Vital signs: Temp Pulse Resp BP Pulse Ox 98.1 F 70 18 107/57 L 97 01/06/19 16:20 01/06/19 16:20 01/06/19 16:20 01/06/19 16:20 01/06/19 16:20 - Laboratory Result Diagrams: 01/06/19 16:57 Laboratory results interpreted by me: 01/06/19 16:57 RBC 3.38 L Hgb 10.5 L Hct 30.6 L Discharge - Discharge Clinical Impression: DVT (deep venous thrombosis) Qualifiers: DVT location: lower extremity Affected thrombotic vein of extremity: popliteal Chronicity: chronic Laterality: right Qualified Code(s): I82.531 - Chronic e mbolism and thrombosis of right popliteal vein Condition: Stable Disposition: HOME, SELF-CARE Instructions: DVT Outpatient Treatment ([facility]) Additional Instructions: Please continue taking the Eliquis 5 mg twice daily as directed, you may use compression stockings or an Yann wrap to help with swelling and keep your leg elevated when you are not up and walking around. Referrals: PEDRITO WELLINGTON JR, [Primary Care Provider] - Follow up in 3-5 days
== END 2019-01-06 18:10 | disposition home or self-care (01) ==
LOC: ER 16:14
DX: I82.531 Chronic embolism and thrombosis of right popliteal vein (principal); M79.661 Pain in right lower leg; E78.00 Pure hypercholesterolemia, unspecified; I10 Essential (primary) hypertension; E11.9 Type 2 diabetes mellitus without complications; J44.9 Chronic obstructive pulmonary disease, unspecified; Z96.641 Presence of right artificial hip joint; Z79.01 Long term (current) use of anticoagulants; Z90.49 Acquired absence of other specified parts of digestive tract; Z95.1 Presence of aortocoronary bypass graft; Z90.710 Acquired absence of both cervix and uterus
CPT/HCPCS: 36415; 85025; 85610; 85730

== ENCOUNTER → 2019-01-06 | Outpatient (CLI) | payer MEDICARE, MEDICAID ==
--- NOTE | 2019-01-06 16:07 | XCELERA REPORT ---
[address] [place] [facility] [address] Lower Extremity Venous Evaluation Procedure: Color flow and duplex imaging of the veins of the right lower extremity as well as the left Common Femoral vein. Right Sided Venous Evaluation Abnormal vessel filling, no compression or Colour flow normal sized Popliteal , Peroneal and Posterior Tibial veins. Left Sided Venous Evaluation The left common femoral vein is fully compressible. Spontaneous and phasic flow is present in the left common femoral vein. Interpretation Summary Chronic DVT in the right Popliteal, Peroneal and Posterior Tibial veins. Name: DOE FUNG Age: 78 yrs Gender: Female : 1940 Patient Status: Outpatient Patient Location: Study Date: 01/06/2019 03:16 PM Reason For Study: RLE SWELLING Ordering Physician: PEDRITO WELLINGTON Performed By: Digna Duenas : PEDRITO WELLINGTON > Louis Pace
== END ==
LOC: SP 14:52
PROVIDERS: ATTEND Orthopaedic Surgery
DX: I82.531 Chronic embolism and thrombosis of right popliteal vein (principal); I82.551 Chronic embolism and thrombosis of right peroneal vein; I82.541 Chronic embolism and thrombosis of right tibial vein; M25.551 Pain in right hip; R60.9 Edema, unspecified
CPT/HCPCS: 93971

== ENCOUNTER 2019-01-17 15:46 | Emergency (ER) | payer MEDICARE, MEDICAID ==
--- NOTE | 2019-01-17 16:05 | ER Document Report ---
ED Medical Screen (RME) - General Chief Complaint: Leg Pain Stated Complaint: POSSIBLE RESTLESS LEG EPISODE Time Seen by Provider: 01/17/19 16:00 Primary Care Provider: MARIANGEL BROWN DO [Primary Care Provider] - Follow up as needed Mode of Arrival: Wheelchair Information source: Patient Notes: 78-year-old female presents to ED for complaint of spasms to bilateral legs worse on the left now. She has been having them on both legs. Patient had a recent hip replacement to the right. She states she is having pain in her low back. She states she has suffered from restless leg syndrome. Patient states she has a DVT on the right calf and the pain is been increasing in the swelling increasing. She is on Eliquis. She states she had a Doppler here at this [facility] a week before leaving the hospital on 31 December. She states she had an MRI of the low back less than a year ago and she has had some back injections since then. States she has not seen her back specialist in 6 to 9 months. I have greeted and performed a rapid initial assessment of this patient. A comprehensive ED assessment and evaluation of the patient, analysis of test results and completion of medical decision making process will be conducted by an additional ED providers. TRAVEL OUTSIDE OF THE [place] IN LAST 30 DAYS: No - Related Data Allergies/Adverse Reactions: cephalexin [From Keflex] Allergy (Verified 01/17/19 16:00) morphine Allergy (Verified 01/17/19 16:00) sulfamethoxazole [From Bactrim] Allergy (Verified 01/17/19 16:00) trimethoprim [From Bactrim] Allergy (Verified 01/17/19 16:00) Past Medical History - Past Medical History Cardiac Medical History: Reports: Hx Hypercholesterolemia, Hx Hypertension Denies: Hx Atrial Fibrillation, Hx Congestive Heart Failure, Hx Coronary Artery Disease, Hx Heart Attack, Hx Peripheral Vascular Disease, Hx Pulmonary Embolism, Hx Heart Murmur Pulmonary Medical History: Reports: Hx Asthma, Hx COPD, Hx Sleep Apnea - uses CPAP Denies: Hx Bronchitis, Hx Pneumonia, Hx Respiratory Failure, Hx Tuberculosis Neurological Medical History: Denies: Hx Cerebrovascular Accident, Hx Seizures Endocrine Medical History: Reports: Hx Diabetes Mellitus Type 2, Hx Hyperthyroidism. Denies: Hx Diabetes Mellitus Type 1, Hx Graves' Disease, Hx Hypothyroidism Renal/ Medical History: Denies: Hx End Stage Renal Disease, Hx Kidney Stones, Hx Peritoneal Dialysis Malignancy Medical History: Reports: Hx Skin Cancer. Denies: Hx Lung Cancer GI Medical History: Reports: Hx Gastroesophageal Reflux Disease, Hx Ulcer - 1970. Denies: Hx Cirrhosis, Hx Crohn's Disease, Hx Hepatitis, Hx Hiatal Hernia, Hx Irritable Bowel, Hx Liver Failure, Hx Pancreatitis Musculoskeltal Medical History: Reports Hx Arthritis, Denies Hx Fibromyalgia, Denies Hx Gout, Denies Hx Muscular Dystrophy, Denies Hx Systemic Lupus Erythematosus Skin Medical History: Denies Hx Psoriasis Psychiatric Medical History: Reports: Hx Bipolar Disorder, Hx Depression - anxiety Denies: Hx Post Traumatic Stress Disorder, Hx Schizophrenia Traumatic Medical History: Reports: Hx Fractures - left wrist ORIF Infectious Medical History: Denies: Hx C-Diff, Hx Hepatitis Past Surgical History: Reports: Hx Appendectomy, Hx Cholecystectomy, Hx 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, Hx Hysterectomy, Other - orif l WRIST. Denies: Hx Bowel Surgery, Hx Section, Hx Colostomy, Hx Gastric Bypass Surgery, Hx Herniorrhaphy, Hx Mastectomy, Hx Open Heart Surgery, Hx Pacemaker, Hx Tonsillectomy, Hx Tubal Ligation Physical Exam - Vital signs Vitals: Temp Pulse Resp BP Pulse Ox 98.0 F 111 H 20 185/82 H 99 01/17/19 15:51 01/17/19 15:51 01/17/19 15:51 01/17/19 15:51 01/17/19 15:51 Course - Vital Signs Vital signs: Temp Pulse Resp BP Pulse Ox 98.0 F 111 H 20 185/82 H 99 01/17/19 15:51 01/17/19 15:51 01/17/19 15:51 01/17/19 15:51 01/17/19 15:51 Doctor's Discharge - Discharge Referrals: MARIANGEL BROWN DO [Primary Care Provider] - Follow up as needed
[2019-01-17] MEDS ORDERED: CYCLOBENZAPRINE HCL 10 MG TABLET PO ONE (16:08)
[2019-01-17 16:43] LABS: ABSOLUTE BASOPHILS # (AUTO) 0.1 10^3/uL (0.0-0.2); ABSOLUTE LYMPHOCYTES (AUTO) 1.7 10^3/uL (0.5-4.7); ABSOLUTE MONOCYTES (AUTO) 0.7 10^3/uL (0.1-1.4); ABSOLUTE NEUT (AUTO) 5.7 10^3/uL (1.7-8.2); BASOPHILS % (AUTO) 0.7 % (0-2); EOSINOPHILS % (AUTO) 0.3 % (0-6); HEMOGLOBIN 11.9 g/dL (12.0-15.5); MEAN CORPUSCULAR HEMOGLOBIN 31.2 pg (27.0-33.4); MEAN CORPUSCULAR HGB CONC 34.1 g/dL (32.0-36.0); MEAN CORPUSCULAR VOLUME 92 fl (80-97); MONOCYTES % (AUTO) 8.4 % (3-13); PLATELET COUNT 408 10^3/uL (150-450); RED BLOOD COUNT 3.82 10^6/uL (3.72-5.28); SEGMENTED NEUTROPHILS % (AUTO) 69.6 % (42-78); TOTAL CELLS COUNTED % (AUTO) 100 %; WHITE BLOOD COUNT 8.2 10^3/uL (4.0-10.5)
[2019-01-17 17:05] LABS: ALBUMIN 4.2 g/dL (3.5-5.0); ALKALINE PHOSPHATASE 119 U/L (38-126); ANION GAP 9 (5-19); APPEARANCE,URINE CLEAR; ASPARTATE AMINO TRANSFERASE 18 U/L (14-36); BILIRUBIN,DIRECT 0.1 mg/dL (0.0-0.4); BILIRUBIN,TOTAL 0.6 mg/dL (0.2-1.3); BILIRUBIN,URINE NEGATIVE (NEGATIVE); BLOOD UREA NITROGEN 9 mg/dL (7-20); CALCIUM 9.7 mg/dL (8.4-10.2); CARBON DIOXIDE 25 mmol/L (22-30); CHLORIDE 100 mmol/L (98-107); COLOR,URINE YELLOW; GLUCOSE 97 mg/dL (75-110); GLUCOSE, URINE NEGATIVE (NEGATIVE); KETONES,URINE NEGATIVE (NEGATIVE); POTASSIUM 5.1 mmol/L (3.6-5.0); PROTEIN,URINE NEGATIVE (NEGATIVE); UROBILINOGEN,URINE NEGATIVE mg/dL (<2.0)
[2019-01-17] MEDS ORDERED: ONDANSETRON HCL INJ/PF 4 MG/2 ML SDV IV ONE (17:26)
[2019-01-17] MEDS ORDERED: DIAZEPAM 5 MG TABLET PO ONE (17:26)
[2019-01-17] MEDS ORDERED: MORPHINE SULFATE 10 MG/ML INJ IV ONE (17:27)
[2019-01-17] MEDS ORDERED: NORMAL SALINE 1000 ML 1,000 ML IV ONE (17:28)
--- NOTE | 2019-01-17 17:53 | ER Document Report ---
ED Extremity Problem, Lower - General Chief Complaint: Tremor Stated Complaint: POSSIBLE RESTLESS LEG EPISODE Time Seen by Provider: 01/17/19 16:00 Primary Care Provider: MARIANGEL BROWN DO [Primary Care Provider] - Follow up as needed Mode of Arrival: Wheelchair Information source: Patient, Relative - Daughter Notes: Ms. Li is a 78 yo F w/ PMH hypertension, COPD, R leg DVT on Eliquis, chronic diastolic CHF, osteoarthritis status post right hip replacement 2 weeks ago, anxiety and hyperthyroidism presenting to the ED for lower extremity tremor. Patient states she had also been previously diagnosed with peripheral tremors as well as restless leg syndrome. She was previously on pramipexole and has been using it all week without any relief of symptoms. Patient states she has been unable to sleep over the past 5 days. She endorses that the right lower extremity and walking has been improving throughout the week. She saw her orthopedist on Thursday, Dr. Herrera who stated that things were going well. She is been going to physical therapy and the physical therapist has been trying to break up adhesions in the scar site. Patient states she is having some difficulty with urination and feeling that she has to strain to urinate. She also endorses involuntary defecation with urination. Patient denies any saddle paresthesias, or difficulty ambulating. Patient endorses subjective fever and chills however none documented despite checking multiple times at home and here in the department. Patient denies any dysuria, abdominal pain, nausea vomiting or diarrhea. She states that her pain medications have been switched multiple times from Percocet to tramadol to hydromorphone with out much relief in pain. She is endorsing primarily left lower back pain as well. TRAVEL OUTSIDE OF THE [place] IN LAST 30 DAYS: No - Related Data Allergies/Adverse Reactions: cephalexin [From Keflex] Allergy (Verified 01/17/19 16:00) morphine Allergy (Verified 01/17/19 16:00) sulfamethoxazole [From Bactrim] Allergy (Verified 01/17/19 16:00) trimethoprim [From Bactrim] Allergy (Verified 01/17/19 16:00) Home Medications: blood thinner. sleep apnea Past Medical History - General Information source: Patient - Social History Smoking Status: Current Every Day Smoker Chew tobacco use (# tins/day): No Frequency of alcohol use: Rare Drug Abuse: None Family History: CAD, DM, Hyperlipidemia, Hypertension, Malignancy - SKIN Patient has suicidal ideation: No Patient has homicidal ideation: No - Past Medical History Cardiac Medical History: Reports: Hx Hypercholesterolemia, Hx Hypertension Denies: Hx Atrial Fibrillation, Hx Congestive Heart Failure, Hx Coronary Marie ry Disease, Hx Heart Attack, Hx Peripheral Vascular Disease, Hx Pulmonary Embolism, Hx Heart Murmur Pulmonary Medical History: Reports: Hx Asthma, Hx COPD, Hx Sleep Apnea - uses CPAP Denies: Hx Bronchitis, Hx Pneumonia, Hx Respiratory Failure, Hx Tuberculosis Neurological Medical History: Denies: Hx Cerebrovascular Accident, Hx Seizures Endocrine Medical History: Reports: Hx Diabetes Mellitus Type 2, Hx Hyperthyroidism. Denies: Hx Diabetes Mellitus Type 1, Hx Graves' Disease, Hx Hypothyroidism Renal/ Medical History: Denies: Hx End Stage Renal Disease, Hx Kidney Stones, Hx Peritoneal Dialysis Malignancy Medical History: Reports: Hx Skin Cancer. Denies: Hx Lung Cancer GI Medical History: Reports: Hx Gastroesophageal Reflux Disease, Hx Ulcer - 1970. Denies: Hx Cirrhosis, Hx Crohn's Disease, Hx Hepatitis, Hx Hiatal Hernia, Hx Irritable Bowel, Hx Liver Failure, Hx Pancreatitis Musculoskeletal Medical History: Reports Hx Arthritis, Denies Hx Fibromyalgia, Denies Hx Gout, Denies Hx Muscular Dystrophy, Denies Hx Systemic Lupus Erythematosus Skin Medical History: Denies Hx Psoriasis Psychiatric Medical History: Reports: Hx Bipolar Disorder, Hx Depression - an xiety Denies: Hx Post Traumatic Stress Disorder, Hx Schizophrenia Traumatic Medical History: Reports: Hx Fractures - left wrist ORIF Infectious Medical History: Denies: Hx C-Diff, Hx Hepatitis Past Surgical History: Reports: Hx Appendectomy, Hx Cholecystectomy, Hx 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, Hx Hysterectomy, Other - orif l WRIST. Denies: Hx Bowel Surgery, Hx Section, Hx Colostomy, Hx Gastric Bypass Surgery, Hx Herniorrhaphy, Hx Mastectomy, Hx Open Heart Surgery, Hx Pacemaker, Hx Tonsillectomy, Hx Tubal Ligation Review of Systems - Review of Systems Constitutional: No symptoms reported EENT: No symptoms reported Cardiovascular: No symptoms reported Respiratory: No symptoms reported Gastrointestinal: No symptoms reported Genitourinary: No symptoms reported Female Genitourinary: No symptoms reported Musculoskeletal: No symptoms reported Skin: No symptoms reported Hematologic/Lymphatic: No symptoms reported Neurological/Psychological: No symptoms reported Physical Exam - Vital signs Vitals: Temp Pulse Resp BP Pulse Ox 98.0 F 111 H 20 185/82 H 99 01/17/19 15:51 01/17/19 15:51 01/17/19 15:51 01/17/19 15:51 01/17/19 15:51 Interpretation: Hypertensive, Tachycardic - General General appearance: Appears well, Alert - HEENT Head: Normocephalic, Atraumatic Eyes: Normal Pupils: PERRL - Respiratory Respiratory status: No respiratory distress Chest status: Nontender Breath sounds: Normal Chest palpation: Normal - Cardiovascular Rhythm: Regular Heart sounds: Normal auscultation Murmur: No - Abdominal Inspection: Normal Distension: No distension Bowel sounds: Normal Tenderness: Nontender Organomegaly: No organomegaly - Back Back: Normal, Nontender - Extremities General upper extremity: Normal inspection, Nontender, Normal color, Normal ROM, Normal temperature General lower extremity: Normal inspection, Nontender, Normal weight bearing, Other - Right lower extremity is erythematous in comparison to the left. In addition, the left lower extremity continues to have multiple involuntary spontaneous spastic motions.. No: Odalys's sign - Neurological Neuro grossly intact: Yes Cognition: Normal Orientation: AAOx4 [place] Coma Scale Eye Opening: Spontaneous [place] Coma Scale Verbal: Oriented [place] Coma Scale Motor: Obeys Commands Praneeth Coma Scale Total: 15 Speech: Normal Motor strength normal: LUE, RUE, LLE, RLE Sensory: Normal - Psychological Associated symptoms: Normal affect, Normal mood - Skin Skin Temperature: Warm Skin Moisture: Dry Skin Color: Normal Notes: R anterior hip incision with mild erythema. No TTP. Normal ROM Course - Re-evaluation Re-evalutation: Patient is generally well-appearing and nontoxic. 01/17/19 18:00 Paged Orthopedics vocational nurse lvn, Dr. Perla. Stated that Dr. Herrera takes his own call. 01/17/19 18:03 [employer] attempted calling Dr. Herrera. Unable to get a hold of him. Left message for him to call me back. 01/17/19 18:[address] Herrera on the phone. He states that he would definitely be able to see the patient tomorrow in the office should she call the office or even just present to the office. He also adds he is less concerned about cord compression given the fact that she does have normal lower extremity strength bilaterally and normal sensation. Less concerned about the involuntary defecation with urination. Feels that if the patient requires admission would be best suited with admission to the hospitalist however he would also be amenable to ordering outpatient MRI for further evaluation. 01/17/19 21:05 CBC within normal limits. CMP also within normal limits. UA negative for infection. Patient was given Valium here in the ED which did improve her spasms some but did not resolve them. She was also given Zofran and morphine for antibiotic and pain medication for her back pain. X-rays otherwise unremarkable and shows evidence of the opacity. Given that the patient is able to ambulate here in the ED without issues, low suspicion for acute cord compression. Lower extremity leg movements are more spastic in nature. Patient has no indication for admission at this point in time. She also has an appointment with her primary care doctor tomorrow morning. Spoke to Dr. Herrera was happy to see her in the office whenever she needs to be seen. Patient given return precautions. Instructed to follow-up regarding her abnormal TSH. Discharge with Valium p.o. and trazodone. Instructed that this could make her excessively drowsy and sleepy. Recommended she not operate any vehicles. Also recommended she can start with 1 first and see how that works for her and then add a second medication to help her sleep at night from the restless leg. - Vital Signs Vital signs: Temp Pulse Resp BP Pulse Ox 98.0 F 109 H 19 127/75 H 95 01/17/19 15:51 01/17/19 19:41 01/17/19 20:01 01/17/19 20:00 01/17/19 20:01 - Laboratory Result Diagrams: 01/17/19 14:31 01/17/19 14:31 Laboratory results interpreted by me: 01/17/19 01/17/19 01/17/19 14:31 14:31 14:31 Hgb 11.9 L Hct 35.0 L Sodium 134.4 L Potassium 5.1 H TSH Urine Ascorbic Acid 20 H 01/17/19 14:31 Hgb Hct Sodium Potassium TSH 7.65 H Urine Ascorbic Acid Discharge - Discharge Clinical Impression: Restless leg syndrome, uncontrolled, Insomnia, Status post right hip replacement Condition: Good Disposition: HOME, SELF-CARE Additional Instructions: Follow-up with your primary care doctor. It is important that you get your thyroid stimulating hormone and full thyroid panel checked. I would recommend that you start using the Valium first and see how that affects you and your sleep. You can then add the trazodone if you are not excessively tired or sleepy. Please make sure that you do not drive or operate any vehicles while using the Valium or the trazodone. Prescriptions: Trazodone HCl [Desyrel 50 mg Tablet] 50 mg PO QHS #30 tablet Diazepam [Valium 5 mg Tablet] 5 mg PO QIDP PRN #15 tablet PRN Reason: Referrals: MARIANGEL BROWN DO [Primary Care Provider] - Follow up as needed
--- NOTE | 2019-01-17 18:14 | RADIOLOGY REPORT (SQ) ---
EXAM DESCRIPTION: HIP RIGHT AP/LATERAL COMPLETED DATE/TIME: 01/17/2019 5:55 pm REASON FOR STUDY: recent surg, erythematous wound COMPARISON: 12/30/2018 NUMBER OF VIEWS: Two views. TECHNIQUE: AP pelvis and additional frog-leg view of the right hip. LIMITATIONS: None. FINDINGS: MINERALIZATION: Normal. RIGHT HIP: Right hip arthroplasty in good position. LEFT HIP: No fracture or dislocation. No worrisome bone lesions. PUBIS AND ISCHIUM: No fracture. PELVIS: No fracture. SACRUM: No fracture or dislocation. No worrisome bone lesions. LOWER LUMBAR SPINE: No fracture or dislocation. No worrisome bone lesions. No significant disc disea se. SOFT TISSUES: No findings. OTHER: No other significant finding. IMPRESSION: Right hip arthroplasty. No acute finding. TECHNICAL DOCUMENTATION: JOB ID: [id number] [employer]- All Rights Reserved Reading location - IP/workstation name: [email or web address]
[2019-01-17 21:25] VITALS: BP 126/56
== END 2019-01-17 21:16 | disposition home or self-care (01) ==
LOC: ER 15:46
DX: G47.00 Insomnia, unspecified (principal); G25.81 Restless legs syndrome; F17.200 Nicotine dependence, unspecified, uncomplicated; J44.9 Chronic obstructive pulmonary disease, unspecified; I50.9 Heart failure, unspecified; I11.0 Hypertensive heart disease with heart failure; E78.00 Pure hypercholesterolemia, unspecified; Z79.01 Long term (current) use of anticoagulants; Z86.718 Personal history of other venous thrombosis and embolism; Z96.641 Presence of right artificial hip joint; Z88.3 Allergy status to other anti-infective agents; Z88.6 Allergy status to analgesic agent
CPT/HCPCS: 99283; 96361; 96374; 96375; 36415; 87040; 82550; 83735; 84443; 85025; 80053; 81001; 73502; A9270 ×2; J2270; J2405; J7030